=== PATIENT | male | born 1965 | race Caucasian/White ===

== ENCOUNTER 2023-05-05 12:04 | Outpatient (OUT) | payer OTHER, SELFPAY ==
[2023-05-05 12:34] LABS: Basophils Absolute Auto 0.1 10^3/uL (0.0-0.1); Basophils Percent Auto 0.8 % (0.2-2.0); Eosinophils Absolute Auto 0.1 10^3/uL (0.0-0.7); Hematocrit 40.5 % (42.0-54.0); Hemoglobin 12.7 g/dL (14.0-18.0); Immature Granulocytes Abs Auto 0.03 10^3/uL (0.00-0.03); Immature Granulocytes Pct Auto 0.3 % (0.0-0.5); Lymphocytes Absolute Auto 1.6 10^3/uL (1.2-3.8); Mean Corpuscular HGB Conc 31.4 g/dL (29.9-35.2); Mean Corpuscular Hemoglobin 31.8 pg (25.9-34.0); Mean Corpuscular Volume 101.5 fL (80.0-94.0); Monocytes Absolute Auto 1.1 10^3/uL (0.3-0.8); Monocytes Percent Auto 11.3 % (1.7-12.0); Neutrophils Percent Auto 70.6 % (43.0-75.0); Platelet Count 253 10^3/uL (150-450); Red Blood Count 3.99 10^6/uL (4.70-6.10); Red Cell Distribution Width 12.3 % (11.0-15.0); White Blood Count 9.9 10^3/uL (4.0-11.0)
[2023-05-05 12:52] LABS: Estimated Average Glucose 120 mg/dL; Glycohemoglobin A1C 5.8 % (4.5-6.2)
[2023-05-05 13:04] LABS: Alanine Aminotransferase 17 U/L (16-63); Albumin Globulin Ratio 0.9; Albumin Level 3.3 g/dL (3.4-5.0); Alkaline Phosphatase 59 U/L (46-116); Anion Gap 9.4; Aspartate Amino Transferase 6 U/L (15-37); BUN Creatinine Ratio 16.5; Bilirubin Total 0.3 mg/dL (0.2-1.0); Calcium 8.4 mg/dL (8.5-10.1); Carbon Dioxide 26.1 mmol/L (21.0-32.0); Chloride 104 mmol/L (98-107); Cholesterol 114 mg/dL (<=200); Estimated GFR (African America >60 (>=60); Estimated GFR (Non-African Ame >60 (>=60); Free T3 2.41 pg/mL (2.18-3.98); Globulin 3.8 g/dL; Glucose 107 mg/dL (74-106); HDL Cholesterol 38 mg/dL (40-60); Potassium 4.5 mmol/L (3.5-5.1); Sodium 135 mmol/L (136-145); Thyroid Stimulating Hormone 4.968 uIU/mL (0.358-3.740); Total Protein 7.1 g/dL (6.4-8.2); Triglycerides 56 mg/dL (<=150); Uric Acid 4.4 mg/dL (3.5-7.2); VLDL CHOLESTEROL 11.2 mg/dL
[2023-05-05 13:07] LABS: Prostate Specific Antigen Scrn 0.59 ng/mL (<=4.00)
== END 2023-05-05 12:05 | disposition home or self-care (01) ==
PROVIDERS: PCP Family Medicine; Visit Provider Family Medicine
DX: Z00.00 Encounter for general adult medical examination without abnormal findings (principal); E78.5 Hyperlipidemia, unspecified; R73.09 Other abnormal glucose; Z12.5 Encounter for screening for malignant neoplasm of prostate
CPT/HCPCS: 36415; 80053; 80061; 83036; 84436; 84443; 84481; 84550; 85025; G0103

== ENCOUNTER 2023-05-21 15:11 | Outpatient (RCR) | payer OTHER, SELFPAY ==
[2023-05-22 12:10] LABS: Occult Blood Positive
== END 2023-05-25 17:52 | disposition home or self-care (01) ==
LOC: LAB 15:11
PROVIDERS: PCP Family Medicine; Visit Provider Family Medicine
DX: Z12.12 Encounter for screening for malignant neoplasm of rectum (principal)
CPT/HCPCS: G0328

== ENCOUNTER 2024-03-23 09:04 | Emergency (ER) | payer OTHER, SELFPAY ==
[2024-03-23] VITALS (59 sets, daily range): BP systolic 139–200; BP diastolic 92–142; PULSE 78–139; TEMP 36.9; O2SAT 87–99; BMI 37.3
--- NOTE | 2024-03-23 09:20 | ECG_ITS ---
The [facility] Test Date: 2024-03-23 Pat Name: ESTEBAN HEATH Department: Room: - Gender: Male Candy Packer: : 1965 Requested By: GENET NOLAN Order Number: [id number] Reading MD: GENET NOLAN Measurements Intervals [place] Rate: 97 P: -39850 SD: -23855 QRS: 72 QRSD: 82 T: 270 QT: 296 QTc: 351 Interpretive Statements 1210 Atrial fibrillation 23079 Nonspecific Twave abnormality, probably digitalis effect 8102 Low QRS voltage in chest leads 8305 Short QTc interval 9150 abnormal ECG Compared to ECG 01/08/2022 21:01:46 Low QRS voltage now present Myocardial infarct finding no longer present Electronically Signed On 03-24-2024 7:28:52 EDT by GENET NOLAN
--- NOTE | 2024-03-23 09:20 | XR_ITS ---
The [address] [address] Patient Name: ESTEBAN HEATH MRN: [id number] date: 1965 Sex: M Assigned Patient Location: ER Current Patient Location: ER Accession/Order Number: [id number] Exam Date: 03/23/2024 10:05 Report Date: 03/23/2024 10:16 At the request of: NATIVIDAD JEFFERSON Procedure: XR chest 1V EXAMINATION: XR chest 1V HISTORY: sob COMPARISON: 01/08/2022 TECHNIQUE: AP portable FINDINGS: LUNGS: No significant pulmonary parenchymal abnormalities. VASCULATURE: No increased pulmonary vasculature. PLEURA: No pneumothorax, effusion, or pleural thickening. CARDIAC: No cardiomegaly or cardiac silhouette abnormality. MEDIASTINUM: No visible mass or adenopathy. BONES: No fracture or visible bone lesion. OTHER: Negative. XR/XR chest 1V IMPRESSION: No acute cardiopulmonary process Electronically authenticated by: SHONDA VENTURA Date: 03/23/2024 10:16
--- NOTE | 2024-03-23 09:35 | ED_ITS ---
HPI - Chest Pain General Chief Complaint: Chest Pain Stated Complaint: CHEST PAIN/ SHORTNESS OF BREATH Time Seen by Provider: 03/23/24 09:19 Source: patient Mode of arrival: walk-in Limitations: no limitations History of Present Illness HPI narrative: The patient is coming to us with 3 days history of left-sided chest pain that initially started around his shoulder but today the pain is mostly towards the epigastric area, the patient mentioned that the pain is 6 out of 10 but it goes up to 10 out of 10 sometimes , if not related to breathing or moving and there is no specific thing that will bring the pain The patient denies any numbness or tingling down his legs but he does have some numbness and tingling in his left arm which is a chronic problem, also mentioned that he always have sometimes dislocation of his left shoulder where he sleep on it , but this not the case today Patient also was complaining of shortness of breath and he mentioned that he feels that he is in A-fib and he usually does not feel that his heart racing. No history of coronary artery disease and no history of stent or cardiac issues Related Data Home Medications ?Medication ?Instructions ?Recorded ?Confirmed carvedilol 25 mg tablet 25 mg PO Q12H 03/23/24 03/23/24 citalopram 40 mg tablet 40 mg PO DAILY 03/23/24 03/23/24 digoxin 125 mcg (0.125 mg) tablet 0.125 mg PO DAILY 03/23/24 03/23/24 fenofibrate nanocrystallized 145 145 mg PO DAILY 03/23/24 03/23/24 mg tablet lisinopril 10 mg tablet 10 mg PO DAILY 03/23/24 03/23/24 potassium chloride 10 mEq 10 meq PO Q12H 03/23/24 03/23/24 tablet,extended release rivaroxaban 20 mg tablet (Xarelto) 20 mg PO Q24H 03/23/24 03/23/24 tadalafil 20 mg tablet (Cialis) 20 mg PO DAILY PRN sexual activity 03/23/24 03/23/24 Allergies Allergy/AdvReac Type Severity Reaction Status Date / Time ibuprofen Allergy Severe Hives Verified 03/23/24 09:16 Review of Systems ROS Status of ROS 10 or more systems reviewed and unremark able except as noted in history and below Exam Narrative Exam Narrative: Nurses notes and vital signs reviewed and patient is not hypoxic. General: Well-appearing and in no apparent distress. Skin: Warm, dry, no pallor noted. No rash. Head: Normocephalic, atraumatic. Neck: Supple, non-tender. Eye: Pupils are equal, round and EOMI. No scleral icterus. Ears, Nose, Mouth, and Throat: TM are clear, no nasal mucosal hypertrophy. Oral mucosa is moist, no posterior oropharynx erythema, uvula is mid-line Cardiovascular: Regular Rate and Rhythm without murmur, gallop or rub. Respiratory: No accessory muscle use or respiratory distress. Lungs are clear to auscultation, no wheezing, rales or rhonchi Chest Wall: no tenderness Back: No midline thoracic or lumbar vertebral tenderness. No CVA tenderness Musculoskeletal: normal ROM, no calf or popliteal tenderness, no lower extremity edema/swelling GI: Abdomen is distended and the patient have mid abdomen epigastric area tenderness Neurological: A&O x4. No cranial nerve dysfunction observed. No truncal ataxia. Moves all extremities. Sensation intact. Psychiatric: Cooperative and interactive. Normal mood and affect. Constitutional Vital Signs, click to edit/add: Last Vital Signs Temp 98.5 F 03/23/24 09:17 Pulse 102 H 03/23/24 11:11 Resp 18 03/23/24 11:11 BP 160/100 H 03/23/24 11:11 Pulse Ox 96 03/23/24 11:11 O2 Del Method Room Air 03/23/24 09:33 Course Vital Signs Vital signs: Vital Signs Temperature 98.5 F 03/23/24 09:17 Pulse Rate 119 H 03/23/24 09:17 Respiratory Rate 18 03/23/24 09:17 Blood Pressure 174/102 H 03/23/24 09:17 Pulse Oximetry 97 03/23/24 09:17 Oxygen Delivery Method Room Air 03/23/24 09:17 Temperature 98.5 F 03/23/24 09:17 Pulse Rate 102 H 03/23/24 11:11 Respiratory Rate 18 03/23/24 11:11 Blood Pressure 160/100 H 03/23/24 11:11 Pulse Oximetry 96 03/23/24 11:11 Oxygen Delivery Method Room Air 03/23/24 09:33 MDM - Chest Pain MDM Narrative Medical decision making narrative: The patient EKG showing A-fib with a heart rate of 97 although on the monitor the patient go up to 130s no ST elevation The patient was not taking his beta-barbara as well as digoxin for the last 3 days, and it was noted that the patient last time he used his Cialis was 3 days ago as well CBC shows mild leukocytosis and the patient chemistry showed no acute significant pathology with a negative troponin twice The patient magnesium was 1.7 he was started on IV magnesium The patient is coming to us with a blood pressure that is above 180/110 with chest pain and abdominal pain there was a high concern for aortic dissection and that I obtained a CT angio of the chest as well as the abdomen There was no dissection but the patient had acute cholecystitis changes Blood cultures obtained as well as the patient started on Zosyn Patient will be kept n.p.o. his last meal was at 2 AM this morning It was noted on the monitor that the patient had multiple 4-5 beats of ventricular rhythm that shows on the monitor of nonsustained V. tach I did discuss that with Dr. Ortega and cardiology service and he just recommended the patient continue his beta-barbara and follow-up with cardiology as outpatient The patient according to Dr. Ortega can go to surgery with moderate risk The patient case was discussed with Dr. Esparza in general surgery and he recommended the patient being transferred to another facility where there is cardiology service as well The patient case was accepted by Dr. Wheat and general surgery at [facility] as well a bernice Lugo as a hospitalist General: Lab Data Labs: Lab Results 03/23/24 03/23/24 Range/Units 09:26 10:52 WBC 12.1 H (4.0-11.0) 10^3/uL RBC 4.67 L (4.70-6.10) 10^6/uL Hgb 15.2 (14.0-18.0) g/dL Hct 46.5 (42.0-54.0) % MCV 99.6 H (80.0-94.0) fL MCH 32.5 (25.9-34.0) pg MCHC 32.7 (29.9-35.2) g/dL RDW 13.2 (11.0-15.0) % Plt Count 278 (150-450) 10^3/uL MPV 10.1 (9.5-13.5) fL Neut % (Auto) 78.2 H (43.0-75.0) % Lymph % (Auto) 10.2 L (20.5-60.0) % Person % (Auto) 9.8 (1.7-12.0) % Eos % (Auto) 0.7 L (0.9-7.0) % Baso % (Auto) 0.8 (0.2-2.0) % Neut # (Auto) 9.5 H (1.4-6.5) 10^3/uL Lymph # (Auto) 1.2 (1.2-3.8) 10^3/uL Person # (Auto) 1.2 H (0.3-0.8) 10^3/uL Eos # (Auto) 0.1 (0.0-0.7) 10^3/uL Baso # (Auto) 0.1 (0.0-0.1) 10^3/uL Abs Immat Gran (auto) 0.04 H (0.00-0.03) 10^3/uL Imm/Tot Granulo (auto) 0.3 (0.0-0.5) % PT 12.1 H (9.0-11.6) sec INR 1.16 Sodium 138 (136-145) mmol/L Potassium 4.3 (3.5-5.1) mmol/L Chloride 102 (98-107) mmol/L Carbon Dioxide 27.0 (21.0-32.0) mmol/L Anion Gap 13.3 BUN 17.0 (7.0-18.0) mg/dL Creatinine 1.15 (0.70-1.30) mg/dL Est GFR ( Amer) >60 (>=60) Est GFR (Non-Af Amer) >60 (>=60) BUN/Creatinine Ratio 14.8 Glucose 127 H (74-106) mg/dL Lactate 1.4 (0.4-2.0) mmol/L Calcium 9.3 (8.5-10.1) mg/dL Magnesium 1.7 L (1.8-2.4) mg/dL Total Bilirubin 0.7 (0.2-1.0) mg/dL AST 22 (15-37) U/L ALT 22 (16-63) U/L Alkaline Phosphatase 89 (46-116) U/L Troponin I High Sens 5.3 4.8 (4.0-76.1) pg/mL Total Protein 8.3 H (6.4-8.2) g/dL Albumin 4.1 (3.4-5.0) g/dL Globulin 4.2 g/dL Albumin/Globulin Ratio 1.0 Digoxin <0.2 L (0.9-2.0) ng/mL Discharge Plan Discharge Chief Complaint: Chest Pain Clinical Impression: Acute cholecystitis, Chest pain, Left shoulder pain, Hypomagnesemia, Hypertensive urgency, Frequent PVCs Patient Disposition: [facility] Time of Disposition Decision: 11:47 Discharge location: [facility] Condition: Good
[2024-03-23 09:39] LABS: Basophils Absolute Auto 0.1 10^3/uL (0.0-0.1); Basophils Percent Auto 0.8 % (0.2-2.0); Eosinophils Absolute Auto 0.1 10^3/uL (0.0-0.7); Eosinophils Percent Auto 0.7 % (0.9-7.0); Hematocrit 46.5 % (42.0-54.0); Hemoglobin 15.2 g/dL (14.0-18.0); Immature Granulocytes Abs Auto 0.04 10^3/uL (0.00-0.03); Immature Granulocytes Pct Auto 0.3 % (0.0-0.5); Lymphocytes Absolute Auto 1.2 10^3/uL (1.2-3.8); Lymphocytes Percent Auto 10.2 % (20.5-60.0); Mean Corpuscular HGB Conc 32.7 g/dL (29.9-35.2); Mean Corpuscular Hemoglobin 32.5 pg (25.9-34.0); Mean Corpuscular Volume 99.6 fL (80.0-94.0); Mean Platelet Volume 10.1 fL (9.5-13.5); Monocytes Absolute Auto 1.2 10^3/uL (0.3-0.8); Monocytes Percent Auto 9.8 % (1.7-12.0); Neutrophils Absolute Auto 9.5 10^3/uL (1.4-6.5); Neutrophils Percent Auto 78.2 % (43.0-75.0); Platelet Count 278 10^3/uL (150-450); Red Blood Count 4.67 10^6/uL (4.70-6.10); Red Cell Distribution Width 13.2 % (11.0-15.0); White Blood Count 12.1 10^3/uL (4.0-11.0)
[2024-03-23] MEDS: ONDANSETRON PF 4 MG/2 ML VIAL IV (09:46)
[2024-03-23] MEDS: METOPROLOL TARTRATE 5 MG/5 ML VIAL IVP (09:47)
[2024-03-23] MEDS: MORPHINE SULFATE 2 MG/ML SYRINGE IV (09:47)
[2024-03-23 09:53] LABS: INR 1.16; Prothrombin Time 12.1 sec (9.0-11.6)
[2024-03-23 10:00] LABS: Alanine Aminotransferase 22 U/L (16-63); Albumin Level 4.1 g/dL (3.4-5.0); Alkaline Phosphatase 89 U/L (46-116); Anion Gap 13.3; Aspartate Amino Transferase 22 U/L (15-37); BUN Creatinine Ratio 14.8; Bilirubin Total 0.7 mg/dL (0.2-1.0); Calcium 9.3 mg/dL (8.5-10.1); Chloride 102 mmol/L (98-107); Estimated GFR (African America >60 (>=60); Estimated GFR (Non-African Ame >60 (>=60); Globulin 4.2 g/dL; Glucose 127 mg/dL (74-106); Magnesium 1.7 mg/dL (1.8-2.4); Potassium 4.3 mmol/L (3.5-5.1); Sodium 138 mmol/L (136-145); Total Protein 8.3 g/dL (6.4-8.2); Troponin I High Sensitivity 5.3 pg/mL (4.0-76.1)
--- NOTE | 2024-03-23 10:07 | CT_ITS ---
[address] [address] Patient Name: ESTEBAN HEATH MRN: [id number] date: 1965 Sex: M Assigned Patient Location: ER Current Patient Location: Accession/Order Number: [id number] Exam Date: 03/23/2024 10:32 Report Date: 03/23/2024 11:07 At the request of: NATIVIDAD JEFFERSON Procedure: CT angio chest EXAMINATION: CT angio chest, CT angio abdomen pelvis HISTORY: abd pain with chest pain ( dissection ) COMPARISON: No relevant comparison available. TECHNIQUE: After obtaining the patient's consent, CT images of the chest, abdomen and pelvis were obtained without and with non-ionic intravenous contrast material. Axial, Coronal, and Sagittal images. Multi-planar reformatted/3-D images were created to optimize visualization of vascular anatomy. Dose reduction techniques were achieved by using automated exposure control and/or adjustment of mA and/or kV according to patient size and/or use of iterative reconstruction technique. FINDINGS: VASCULATURE: No pulmonary embolism or abnormal opacity. LUNGS: No visible pulmonary disease. PLEURA: No mass, effusion, or pneumothorax. BORIS: No mass or adenopathy. MEDIASTINUM: No mass or adenopathy. CARDIAC: No enlargement or pericardial effusion Coronary arteries: Heavy calcifications CHEST WALL: No mass or axillary adenopathy. AORTA/VASCULAR: No aneurysm or dissection. CELIAC ARTERY: Normal celiac vessels. SMA: Normal mesenteric vessels. RENAL ARTERIES: Single right. 2 left. No flow significant stenosis KAREN: No flow significant stenosis Iliacs: Mild to moderate atherosclerosis. No flow significant stenosis occlusion or aneurysm LIVER: No enlargement, atrophy, abnormal density, or significant focal lesion. BILIARY: Cholelithiasis. Suspected gallbladder wall thickening with pericholecystic inflammatory changes PANCREAS: No lesion, fluid collection, ductal dilatation, or atrophy. SPLEEN: No enlargement or focal lesion. ADRENALS: No mass or enlargement. KIDNEYS: No mass, obstruction, or calcification. Right cortical hypodensity likely a cyst BOWEL/MESENTERY: No visible mass, obstruction, or bowel wall thickening. Normal appendix RETROPERITONEUM: No mass or adenopathy. ABDOMINAL WALL: No mass or hernia. BONES: No bony lesion or fracture. L4-L5 spinous process fusion. Moderate to severe diffuse degenerative spondylosis and facet osteoarthropathy OTHER: Right lateral bladder diverticulum. Prostate calcifications. CT/CT angio chest IMPRESSION: No aortic aneurysm or dissection Inflammatory changes suggesting acute cholecystitis with underlying cholelithiasis Electronically authenticated by: SHONDA VENTURA Date: 03/23/2024 11:07
--- NOTE | 2024-03-23 10:07 | CT_ITS ---
[address] [address] Patient Name: ESTEBAN HEATH MRN: [id number] date: 1965 Sex: M Assigned Patient Location: ER Current Patient Location: Accession/Order Number: [id number] Exam Date: 03/23/2024 10:32 Report Date: 03/23/2024 11:07 At the request of: NATIVIDAD JEFFERSON Procedure: CT angio abdomen pelvis EXAMINATION: CT angio chest, CT angio abdomen pelvis HISTORY: abd pain with chest pain ( dissection ) COMPARISON: No relevant comparison available. TECHNIQUE: After obtaining the patient's consent, CT images of the chest, abdomen and pelvis were obtained without and with non-ionic intravenous contrast material. Axial, Coronal, and Sagittal images. Multi-planar reformatted/3-D images were created to optimize visualization of vascular anatomy. Dose reduction techniques were achieved by using automated exposure control and/or adjustment of mA and/or kV according to patient size and/or use of iterative reconstruction technique. FINDINGS: VASCULATURE: No pulmonary embolism or abnormal opacity. LUNGS: No visible pulmonary disease. PLEURA: No mass, effusion, or pneumothorax. BORIS: No mass or adenopathy. MEDIASTINUM: No mass or adenopathy. CARDIAC: No enlargement or pericardial effusion Coronary arteries: Heavy calcifications CHEST WALL: No mass or axillary adenopathy. AORTA/VASCULAR: No aneurysm or dissection. CELIAC ARTERY: Normal celiac vessels. SMA: Normal mesenteric vessels. RENAL ARTERIES: Single right. 2 left. No flow significant stenosis KAREN: No flow significant stenosis Iliacs: Mild to moderate atherosclerosis. No flow significant stenosis occlusion or aneurysm LIVER: No enlargement, atrophy, abnormal density, or significant focal lesion. BILIARY: Cholelithiasis. Suspected gallbladder wall thickening with pericholecystic inflammatory changes PANCREAS: No lesion, fluid collection, ductal dilatation, or atrophy. SPLEEN: No enlargement or focal lesion. ADRENALS: No mass or enlargement. KIDNEYS: No mass, obstruction, or calcification. Right cortical hypodensity likely a cyst BOWEL/MESENTERY: No visible mass, obstruction, or bowel wall thickening. Normal appendix RETROPERITONEUM: No mass or adenopathy. ABDOMINAL WALL: No mass or hernia. BONES: No bony lesion or fracture. L4-L5 spinous process fusion. Moderate to severe diffuse degenerative spondylosis and facet osteoarthropathy OTHER: Right lateral bladder diverticulum. Prostate calcifications. CT/CT angio abdomen pelvis IMPRESSION: No aortic aneurysm or dissection Inflammatory changes suggesting acute cholecystitis with underlying cholelithiasis Electronically authenticated by: SHONDA VENTURA Date: 03/23/2024 11:07
[2024-03-23 10:35] LABS: Digoxin <0.2 ng/mL (0.9-2.0)
[2024-03-23] MEDS: FAMOTIDINE/PF 20 MG/2 ML VIAL IV (10:54)
[2024-03-23 11:14] LABS: Troponin I High Sensitivity 4.8 pg/mL (4.0-76.1)
[2024-03-23 11:39] LABS: Lactate/Lactic Acid 1.4 mmol/L (0.4-2.0)
[2024-03-23] MEDS: PIPERACILLIN SODIUM/TAZOBACTAM 4.5 GM in 0.9 % SODIUM CHLORIDE 50 ML IV (11:54)
[2024-03-23] MEDS: MAGNESIUM SULFATE/D5W 1 GM/100 ML PREMIX IV (11:54)
[2024-03-23] MEDS: HYDROMORPHONE HCL 0.5 MG/0.5 ML SYRINGE IV (13:41)
[2024-03-23] MEDS: LABETALOL HCL 20 MG/4 ML SYRINGE 10 MG IVP (14:17)
[2024-03-23] MEDS: HYDRALAZINE HCL 20 MG/ML VIAL 10 MG IVP (16:11)
[2024-03-23] MEDS: KETOROLAC TROMETHAMINE 30 MG/ML VIAL 15 MG IVP (17:50)
[2024-03-23] MEDS: 0.9 % SODIUM CHLORIDE 1,000 ML 150 ML IV (17:56)
== END 2024-03-23 18:05 | disposition short-term general hospital (02) ==
PROVIDERS: Emergency Provider Emergency Medicine; PCP Family Medicine
DX: K81.0 Acute cholecystitis (principal); I48.91 Unspecified atrial fibrillation; R07.9 Chest pain, unspecified; R06.02 Shortness of breath; R51.9 Headache, unspecified; R10.9 Unspecified abdominal pain; M25.512 Pain in left shoulder; E83.42 Hypomagnesemia; I16.0 Hypertensive urgency; I10 Essential (primary) hypertension; I49.3 Ventricular premature depolarization
CPT/HCPCS: 36415; 71045; 71275; 74174; 80053; 80162; 83605; 83735; 84484; 85025; 85610; 87040; 93005; 96365; 96368; 96375; 99285; J0360; J1170; J1885; J1920; J2270; J2405; J2543; J3475; Q9967

== ENCOUNTER 2024-04-17 07:00 | Outpatient (OUT) | payer OTHER, SELFPAY ==
--- OUTSIDE RECORDS SUMMARY | 2024-04-14 17:24 | XMS_ITS | CCD ---
Author Organization [facility] Care Team Providers Care Oil Heat Technician Name Role Phone BRADEN, DR DE LEÓN Primary Care Unavailable KUMAR, DR KATHERINE Cole Admitting Unavailable KUMAR, DR KATHERINE Cole Consulting Unavailable KUMAR, DR KATHERINE Cole Attending Unavailable LETY BUENO Consulting Unavailable ELBERT ROSALES Consulting Unavailable SHONDA RAY Consulting Unavailable BRADEN, DR DE LEÓN Primary Care Unavailable BRADEN, DR DE LEÓN Attending Unavailable BRADEN, DR DE LEÓN Admitting Unavailable GENET FELICIANO Referring Unavailable GENET FELICIANO Primary Care Unavailable DIAB, ALEXANDRE Referring Unavailable MAIA, HANI Admitting Unavailable ENGLAND, TONY JUVEL Attending Unavailable ABA MCCURDY Attending Unavailable ZHUKIVSMARQUITA ANDERSONCHUNG M Referring Unavailabl e ENGLAND, TONY JUVEL Referring Unavailable ZHUKIVSCIATLIN ANDERSONLANFabi Silva Referring Unavailabl e MAIA, HANI Referring Unavailable VELY, AELA Referring Unavailable VELY, AELA Attending Unavailable Allergies Allergy Classification Reported Allergen(s) Allergy Type Date of Onset Reaction(s) Facility (3 sources) Ibuprofen; Translations: [IBUPROFEN] Drug Allergy 01-08-2022 [facility] Repository (2 sources) moxifloxacin Drug Allergy 09-02-2013 [facility] Repository (2 sources) Alcohol Drug allergy (disorder) 01-08-2022 [facility] Repository Problems Problem Classification Problem Date Documented Da te Episodic/Chronic Abdominal hernia (1 source) Ventral hernia without obstruction or gangrene; Translations: [VENTRAL HERNIA W/O OBST/GANGRENE] Onset: 01-12-2022 Episodic Biliary tract disease (2 sources) Acute cholecystitis; Translations: [Acute cholecystitis] Onset: 03-23-2024 Episodic Cardiac dysrhythmias (3 sources) Unspecified atrial fibrillation; Translations: [UNSPECIFIED ATRIAL FIBRILLATION] Onset: 01-12-2022 Chronic Chronic obstructive pulmonary disease and bronchiectasis (1 source) Bronchitis, not specified as acute or chronic; Translations: [BRONCHITIS NOT SPEC ACUTE/CHRON] Onset: 01-12-2022 Episodic E Codes: Fall (1 source) Unspecified fall, initial encounter; Translations: [UNSPECIFIED FALL INITIAL ENCOUNTER] Onset: 01-12-2022 Episodic Essential hypertension (1 source) Essential (primary) hypertension; Translations: [ESSENTIAL PRIMARY HYPERTENSION] Onset: 01-12-2022 Chronic Other aftercare (1 source) Other manager long term care (current) drug therapy; Translations: [OTH DIRECTOR OF TRAUMA CURRENT DRUG THERAPY] Onset: 01-12-2022 Episodic Other aftercare (1 source) longterm (current) use of aspirin; Translations: [MCFP CURRENT USE OF ASPIRIN] Onset: 01-12-2022 Episodic Other aftercare (1 source) manager terminal (current) use of anticoagulants; Translations: [MCFP CURRNT USE ANTICOAGULANTS] Onset: 01-12-2022 Episodic Other lower respiratory disease (1 source) Hypoxemia; Translations: [HYPOXEMIA] Onset: 01-12-2022 Episodic Other nutritional; endocrine; and metabolic disorders (2 sources) Hypomagnesemia; Translations: [Hypomagnesemia] Onset: 03-23-2024 Chronic Residual codes; unclassified (1 source) Acquired absence of other genital organ(s); Translations: [ACQUIRED ABSENCE OTH GENITAL ORGANS] Onset: 01-12-2022 Episodic Residual codes; unclassified (1 source) High risk heterosexual behavior; Translations: [High risk heterosexual behavior] Onset: 09-25-2023 Episodic Superficial injury; contusion (4 sources) Contusion of unspecified back wall of thorax, initial encounter; Translations: [CONTUS UNS BACK WALL THORAX INITIAL] Onset: 01-08-2022 Episodic Unclassified (2 sources) Post-op; Translations: [Post-op] Onset: 04-10-2024 Results Test Name Value Interpretation Reference Range Facility 36on 04-11-2024 36 Patient came into office for visit Normal [facility] Office Visiton 04-10-2024 Follow-up visit [id number] Dieudonne Sahu ph 1965 M Date Provider Department Center 04/10/2024 ABA LOPEZ [facility] SURG Second Fl No family history on file Level of Service:28182 [place] POSTOP FOLLOW UP VISIT RELATED TO ORIGINAL PX Reason for Visit and Comments: Post-op [483] Maximo Barrios is here today for post op visit: s/p 03/25/24 subtotal cholecystectomy and drain placement Patient states he took the bulb off due to it being caught on things He has not had any drainage in over a week Normal [facility] 36on 04-04-2024 36 Translator Interpreter called yanique hodges twice to schedule 1 week follow there was no answer Lmom Translator Interpreter will give patient a call back Normal [facility] Office Visiton 04-03-2024 Follow-up visit [id number] Dieudonne Sahu ph 1965 M Date Provider Department Center 04/03/2024 76Oliverio-LUCA CHEN [facility] SURG Second Fl No family history on file Level of Service:15059 [place] POSTOP FOLLOW UP VISIT RELATED TO ORIGINAL PX Reason for Visit and Comments: Post-op [483] - Denis is her/e today for post op visit: S/p Lap Alma Delia with drain placement x2 03/25/24 Normal [facility] 30on 03-26-2024 30 The patient is Moderately Stable - Low risk of patient condition declining or worsening The patient's goals for the shift include comfort and rest The clinical goals for the shift include VSS Normal [facility] APTTon 03-26-2024 ACTIVATED PARTIAL THROMBOPLASTIN TIME IN PPP BY COAGULATION ASSAY 31.8 Seconds Normal 25.0-35.0 [facility] Comment on above: Order Comment: Basel ine aPTT before initiating heparin infusion. Result Comment: Clin ical significance of the APTT is questionable in the presence of heparin. Performed By: #### L [id number] ####[facility] ([employer])[address] [place] [address] CBCon 03-26-2024 Erythrocyte distribution width (RBC) [Ratio] 13.0 % Normal 11.5-15.0 [facility] Comment on above: Performed By: #### L [id number] #### [facility] (BEAKER) [address] [place] [address] ERYTHROCYTE MEAN CORPUSCULAR HEMOGLOBIN CONCENTRATION (G/DL) BY AUTOMATED 32.3 g/dL Normal 32.0-35.0 [facility] Comment on above: Performed By: #### L [id number] #### [facility] (BEAKER) [address] [place] [address] Hematocrit (Bld) [Volume fraction] 40.3 % Normal 39.0-55.0 [facility] Comment on above: Performed By: #### L [id number] #### [facility] (BEAKER) [address] [place] [address] Hemoglobin (Bld) [Mass/Vol] 13.0 g/dL Normal 13.0-17.0 [facility] Comment on above: Performed By: #### L [id number] #### [facility] [address] [place] [address] MCH (RBC) [Entitic mass] 32.5 pg Normal 27.0-33.0 [facility] Comment on above: Performed By: #### L [id number] #### [facility] [address] [place] [address] MCV (RBC) [Entitic vol] 100.8 fL High 82.0-98.0 [facility] Comment on above: Performed By: #### L [id number] #### [facility] (BEAKER) [address] [place] [address] PLATELETS (10*3/UL) IN BLOOD AUTOMATED COUNT 266 10*3/uL Normal 150-400 [facility] Comment on above: Performed By: #### L [id number] #### [facility] (BEAKER) [address] [place] [address] RBC (Bld) [#/Vol] 4.00 10*6/uL Low 4.20-5.70 [facility] Comment on above: Performed By: #### L [id number] #### [facility] (BEAKER) [address] [place] [address] WBC (Bld) [#/Vol] 19.89 10*3/uL High 4.00-10.60 [facility] Comment on above: Performed By: #### L [id number] #### [facility] (BEAKER) [address] [place] [address] COMPREHENSIVE METABOLIC PANE Sander 03-26-2024 Albumin [Mass/Vol] 3.8 g/dL Normal 3.5-5.7 [facility] Comment on above: Performed By: #### L [id number] ####[facility] (BEAKER)[address] [place] [address] ALP [Catalytic activity/Vol] 45 U/L Normal 34-104 [facility] Comment on above: Performed By: #### L [id number] ####[facility] (BEAKER)[address] [place] [address] ALT [Catalytic activity/Vol] 10 U/L Normal 7-52 [facility] Comment on above: Performed By: #### L [id number] ####[facility] (BEAKER)[address] [place] [address] Anion gap [Moles/Vol] 10 mmol/L Normal 7-20 [facility] Comment on above: Performed By: #### L [id number] ####[facility] (BEAKER)[address] [place] [address] AST [Catalytic activity/Vol] 15 U/L Normal 13-39 [facility] Comment on above: Performed By: #### L [id number] ####[facility] (BEAKER)[address] [place] [address] Bilirubin [Mass/Vol] 0.8 mg/dL Normal 0.3-1.0 [facility] Comment on above: Performed By: #### L [id number] ####[facility] (BEAKER)[address] [place] [address] Calcium [Mass/Vol] 8.9 mg/dL Normal 8.6-10.3 [facility] Comment on above: Performed By: #### L [id number] ####[facility] (BEAKER)[address] [place] [address] Chloride [Moles/Vol] 101 mmol/L Normal 98-107 [facility] Comment on above: Performed By: #### L [id number] ####[facility] (BEAKER)[address] [place] [address] CO2 [Moles/Vol] 28 mmol/L Normal 21-31 [facility] Comment on above: Performed By: #### L [id number] ####[facility] ([facility] [place] [address] Creatinine [Mass/Vol] 0.90 mg/dL Normal 0.70-1.30 [facility] Comment on above: Performed By: #### L [id number] ####[facility] ([facility] [place] [address] GLOMERULAR FILTRATION RATE ML/MIN/1.73 SQ M.PREDICTED 98.4 mL/min/1.73m*2 Normal >60.0 [facility] Comment on above: Result Comment: The [facility]???s estimated glomerular filtration rate (eGFR) will no longer include consideration of race in its calculation. The National Kidney Foundation???s eGFR Task Force developed new recommendations for the estimation of the glomerular filtration rate in the [place] They recommend immediate implementation of the new equation refit without the race variable in all laboratories because the calculation does not include race. In addition to not including race in the calculation and reporting, it included diversity in its development, and has acceptable performance characteristics and potential consequences that do not disproportionately affect any one group of individuals. Performed By: #### L [id number] ####[facility] (BEAKER)[address] [place] [address] Glucose [Mass/Vol] 159 mg/dL High 70-100 [facility] Comment on above: Performed By: #### L [id number] ####[facility] (BEAKER)[address] [place] [address] Potassium [Moles/Vol] 4.4 mmol/L Normal 3.5-5.1 [facility] Comment on above: Performed By: #### L [id number] ####[facility] ([facility])[address] [place] [address] Protein [Mass/Vol] 6.9 g/dL Normal 6.0-8.3 [facility] Comment on above: Performed By: #### L [id number] ####[facility] ([facility])[address] [place] [address] Sodium [Moles/Vol] 135 mmol/L Low 136-145 [facility] Comment on above: Performed By: #### L [id number] ####[facility] ([facility])[address] [place] [address] Urea nitrogen [Mass/Vol] 13 mg/dL Normal 7-25 [facility] Comment on above: Performed By: #### L [id number] ####[facility] ([facility])[address] [place] [address] UREA NITROGEN/CREATININE (MASS RATIO) IN SER/PLAS 14.4 Normal [facility] Comment on above: Performed By: #### L [id number] ####[facility] ([facility])[address] [place] [address] PLATELET COUNTon 03-26-2024 PLATELETS (10*3/UL) IN BLOOD AUTOMATED COUNT 298 10*3/uL Normal 150-400 [facility] Comment on above: Performed By: #### L [id number] #### [facility] ([facility]) [address] [place] [address] PROTIME-INRon 03-26-2024 INR IN PPP BY COAGULATION ASSAY 1.34 High 0.90-1.10 [facility] Comment on above: Result Comment: ACCC P RECOMMENDED INR FOR WARFARIN THERAPY CONDITION INR PROPHYLAXIS OF VENOUS THROMBOSIS 2-3 (HIGH-RISK SURGERY) TREATMENT OF VENOUS THROMBOSIS 2-3 TREATMENT OF PULMONARY EMBOLISM 2-3 PREVENTION OF SYSTEMIC EMBOLISM: 2-3 ACUTE MYOCARDIAL INFARCTION TISSUE HEART VALVES VALVULAR HEART DISEASE ATRIAL FIBRILLATION RECURRENT SYSTEMIC EMBOLISM MECHANICAL HEART VALVE 2.5-3.5 FROM: ORAL ANTICOAGULANTS. MECHANISM OF ACTION, CLINICAL EFFECTIVENESS, AND OPTIMAL THERAPEUTIC RANGE. CHEST 1995;108:231S-246S. Performed By: #### L [id number] ####[facility] [employer])[address] [place] [address] PROTHROMBIN TIME (PT) IN PPP BY COAGULATION ASSAY 16.5 Seconds High 12.3-14.8 [facility] Comment on above: Performed By: #### L [id number] ####[facility] [employer])[address] [place] [address] 30on 03-25-2024 30 The patient is Moderately Stable - Low risk of patient condition declining or worsening The patient's goals for the shift include comfort and rest The clinical goals for the shift include stable VS Over the shift, the patient did make progress toward his goals. Normal [facility] 30 The patient is Moderately Stable - Low risk of patient condition declining or worsening The patient's goals for the shift include comfort and rest The clinical goals for the shift include VSS Normal [facility] APTTon 03-25-2024 ACTIVATED PARTIAL THROMBOPLASTIN TIME IN PPP BY COAGULATION ASSAY 76.3 Seconds High 25.0-35.0 [facility] Comment on above: Result Comment: Clin ical significance of the APTT is questionable in the presence of heparin. Performed By: #### L [id number] #### [facility] [employer]) [address] [place] [address] CBCon 03-25-2024 Erythrocyte distribution width (RBC) [Ratio] 13.2 % Normal 11.5-15.0 [facility] Comment on above: Performed By: #### L [id number] #### [facility] ([facility]) [address] [place] [address] ERYTHROCYTE MEAN CORPUSCULAR HEMOGLOBIN CONCENTRATION (G/DL) BY AUTOMATED 32.0 g/dL Normal 32.0-35.0 [facility] Comment on above: Performed By: #### L [id number] #### [facility] ([facility]) [address] [place] [address] Hematocrit (Bld) [Volume fraction] 39.1 % Normal 39.0-55.0 [facility] Comment on above: Performed By: #### L [id number] #### [facility] ([facility]) [address] [place] [address] Hemoglobin (Bld) [Mass/Vol] 12.5 g/dL Low 13.0-17.0 [facility] Comment on above: Performed By: #### L [id number] #### [facility] ([facility]) [address] [place] [address] MCH (RBC) [Entitic mass] 32.3 pg Normal 27.0-33.0 [facility] Comment on above: Performed By: #### L [id number] #### [facility] ([facility]) [address] [place] [address] MCV (RBC) [Entitic vol] 101.0 fL High 82.0-98.0 [facility] Comment on above: Performed By: #### L [id number] #### [facility] ([facility]) [address] [place] [address] PLATELETS (10*3/UL) IN BLOOD AUTOMATED COUNT 235 10*3/uL Normal 150-400 [facility] Comment on above: Performed By: #### L [id number] #### [facility] ([facility]) [address] [place] [address] RBC (Bld) [#/Vol] 3.87 10*6/uL Low 4.20-5.70 [facility] Comment on above: Performed By: #### L [id number] #### [facility] (BEAKER) [address] [place] [address] WBC (Bld) [#/Vol] 14.90 10*3/uL High 4.00-10.60 [facility] Comment on above: Performed By: #### L [id number] #### [facility] (BEAKER) [address] [place] [address] COMPREHENSIVE METABOLIC PANE Sander 03-25-2024 Albumin [Mass/Vol] 3.6 g/dL Normal 3.5-5.7 [facility] Comment on above: Performed By: #### L [id number] ####[facility] ([facility] [place] [address] ALP [Catalytic activity/Vol] 45 U/L Normal 34-104 [facility] Comment on above: Performed By: #### L [id number] ####[facility] ([facility] [place] [address] ALT [Catalytic activity/Vol] 10 U/L Normal 7-52 [facility] Comment on above: Performed By: #### L [id number] ####[facility] ([facility])[address] [place] [address] Anion gap [Moles/Vol] 9 mmol/L Normal 7-20 [facility] Comment on above: Performed By: #### L [id number] ####[facility] ([facility])[address] [place] [address] AST [Catalytic activity/Vol] 15 U/L Normal 13-39 [facility] Comment on above: Performed By: #### L [id number] ####[facility] ([facility])[address] [place] [address] Bilirubin [Mass/Vol] 0.8 mg/dL Normal 0.3-1.0 [facility] Comment on above: Performed By: #### L [id number] ####[facility] (BEAKER)[address] [place] [address] Calcium [Mass/Vol] 8.5 mg/dL Low 8.6-10.3 [facility] Comment on above: Performed By: #### L [id number] ####[facility] ([facility])[address] [place] [address] Chloride [Moles/Vol] 103 mmol/L Normal 98-107 [facility] Comment on above: Performed By: #### L [id number] ####[facility] ([facility])[address] [place] [address] CO2 [Moles/Vol] 28 mmol/L Normal 21-31 [facility] Comment on above: Performed By: #### L [id number] ####[facility] ([facility])[address] [place] [address] Creatinine [Mass/Vol] 0.92 mg/dL Normal 0.70-1.30 [facility] Comment on above: Performed By: #### L [id number] ####[facility] ([facility])[address] [place] [address] GLOMERULAR FILTRATION RATE ML/MIN/1.73 SQ M.PREDICTED 95.8 mL/min/1.73m*2 Normal >60.0 [facility] Comment on above: Result Comment: The [facility]???s estimated glomerular filtration rate (eGFR) will no longer include consideration of race in its calculation. The National Kidney Foundation???s eGFR Task Force developed new recommendations for the estimation of the glomerular filtration rate in the [place] They recommend immediate implementation of the new equation refit without the race variable in all laboratories because the calculation does not include race. In addition to not including race in the calculation and reporting, it included diversity in its development, and has acceptable performance characteristics and potential consequences that do not disproportionately affect any one group of individuals. Performed By: #### L [id number] ####[facility] ([facility])[address] [place] [address] Glucose [Mass/Vol] 120 mg/dL High 70-100 [facility] Comment on above: Performed By: #### L [id number] ####[facility] ([facility])[address] [place] [address] Potassium [Moles/Vol] 4.1 mmol/L Normal 3.5-5.1 [facility] Comment on above: Performed By: #### L [id number] ####[facility] ([facility])[address] [place] [address] Protein [Mass/Vol] 6.6 g/dL Normal 6.0-8.3 [facility] Comment on above: Performed By: #### L [id number] ####[facility] [place] [address] Sodium [Moles/Vol] 136 mmol/L Normal 136-145 [facility] Comment on above: Performed By: #### L [id number] ####[facility] ([facility] [place] [address] Urea nitrogen [Mass/Vol] 13 mg/dL Normal 7-25 [facility] Comment on above: Performed By: #### L [id number] ####[facility] ([facility] [place] [address] UREA NITROGEN/CREATININE (MASS RATIO) IN SER/PLAS 14.1 Normal [facility] Comment on above: Performed By: #### L [id number] ####[facility] ([facility] [place] [address] HISTOLOGY - TISSUE EXAMon LAB AP CASE REPORT Normal [facility] Comment on above: Order Comment: Pre-o p diagnosis:Acute cholecystitis [K81.0] Result Comment: Surg ical Pathology Case: [id number] Authorizing Provider: Luca Chen MD Collected: 03/25/2024 1056 Ordering Location: [facility] Main Operating Room Received: 03/28/2024 0924 Pathologist: Lurdes Harvey MD Specimen: Gallbladder, GALLBLADDER Performed By: #### L [id number] ####[facility] ([facility] [place] [address] LAB AP CLINICAL INFORMATION Normal [facility] Comment on above: Order Comment: Pre-o p diagnosis:Acute cholecystitis [K81.0] Result Comment: Post -Op Diagnoses K81.0 - Acute cholecystitis [ICD-10-CM] Performed By: #### L [id number] ####[facility] ([facility])[address] [place] [address] LAB AP GROSS DESCRIPTION A. Gallbladder. [facility] Comment on above: Order Comment: Pre-o p diagnosis:Acute cholecystitis [K81.0] Result Comment: Rece ived in formalin and labeled Sahu Denis, gallbladder , are two portions of purple-marie, sheet-like portions of soft tissue, measuring 4 x 2.5 x 1.5 cm and 4 x 2 x 0.5 cm. There is scant attached yellow, lobulated soft tissue, consistent with fat. The cut surface of the soft tissue is purple-patton, smooth and up to 0.4 cm in thickness. Also in the container, is a 4.5 x 3 x 2 cm aggregate of gold yellow, friable and dough-like material. It Business Process Architect sections of soft tissue are submitted in 2 cassettes. Zenobia Davis M.D., PGY-1 Performed By: #### L [id number] ####[facility] ([facility])[address] [place] [address] LAB AP MICROSCOPIC DESCRIPTION Microscopic examination performed. [facility] Comment on above: Order Comment: Pre-o p diagnosis:Acute cholecystitis [K81.0] Performed By: #### L [id number] ####[facility] ([facility])[address] [place] [address] LAB AP REPORT FINAL DIAGNOSIS NARRATIVE [facility] Comment on above: Order Comment: Pre-o p diagnosis:Acute cholecystitis [K81.0] Result Comment: A. G allbladder, cholecystectomy: - Acute and chronic cholecystitis with serositis and transmural inflammation. - Cholelithiasis. Performed By: #### L [id number] ####[facility] ([facility] [place] [address] MAGNESIUMon 03-25-2024 Magnesium [Mass/Vol] 1.6 mg/dL Low 1.9-2.7 [facility] Comment on above: Performed By: #### L [id number] #### [facility] ([facility]) [address] [place] [address] NURSNOTEon 03-25-2024 NURSNOTE Translator Interpreter contacted by [facility]. Patient had 31 runs of vtach overnight between 4-8 beats each. Patient remains asymptomatic to each episode. Roberta Alonzo notified. Order placed for magnesium to be ordered with AM labs. Normal [facility] OPNOTEon 03-25-2024 OPNOTE CHOLECYSTECTOMY, LAPAROSCOPIC Operative Note Date: 03/23/2024 - 03/25/2024 Location: [facility] OR Name: Denis Sahu : 1965, Diagnosis Pre-op Diagnosis * Acute cholecystitis [K81.0] Post-op Diagnosis * Acute cholecystitis [K81.0] Procedures Laparoscopic subtotal cholecystectomy Surgeons Primary: Luca Chen MD Assisting: Luis Raymond MD Resident - Assisting: Oswald Ni MD I was present and scrubbed throughout the entire procedure. Please note that Luis Raymond MD assisted me with this complex procedure, due to there not being a resident of appropriate level available. Procedure Summary Anesthesia: General ASA: III Estimated Blood Loss: 30 mL Total IV Fluids: see anesthesia for documentation Drains: Closed/Suction Drain Anterior;Right RUQ Bulb 19 Fr. (Active) Closed/Suction Drain Anterior;Right RUQ Accordion 16 Fr. (Active) Urethral Catheter Non-latex 16 Fr. (Active) Specimens ID Source Type Tests Collected By Collected At Frozen? Priority Lab ID A Gallbladder Tissue HISTOLOGY - TISSUE EXAM Luca Chen MD 03/25/24 [id number] No Description: GALLBLADDER Staff: Slitter And Rewinder: Yuki Hobbs RN Scrub Person: Shalini Marroquin CST Indications: Denis Sahu is an 58 y.o. male who is having surgery for Acute cholecystitis [K81.0]. Procedure Details: The patient was seen in the preoperative area. The risks, benefits, complications, treatment options, non-operative alternatives, expected recovery and outcomes were discussed with the patient. The possibilities of reaction to medication, pulmonary aspiration, injury to surrounding structures, bleeding, recurrent infection, the need for additional procedures, failure to diagnose a condition, and creating a complication requiring transfusion or operation were discussed with the patient. The patient concurred with the proposed plan, giving informed consent. The site of surgery was properly noted/marked if necessary per policy. The patient has been actively warmed in preoperative area. Preoperative antibiotics have been ordered and given within 1 hours of incision. Venous thrombosis prophylaxis are not indicated. The patient was placed supine on the Operating Room table and endotracheal intubation was performed by anesthesia. The patient was prepped and draped in the usual sterile fashion so as to expose the anterior abdominal wall. A time out was obtained, confirming patient, procedure and laterality. A vertical infraumbilical incision was made. Using blunt dissection the subcutaneous tissue was dissected to the level of the fascia. The abdominal cavity was then entered under direct visualization. A 12 mm Rupal port was then introduced and the abdominal cavity was insuflated. A 5 mm port was placed in the subxiphoid region. Adhesions in the right upper quadrant were taken down using electrocautery. Moderate amount of bilious ascites noted in there right upper quadrant along with liver changes concerning for liver disease. Two 5 mm ports were placed along the sub costal margin in the right upper quadrant. The patient was placed in reverse Trendelenburg with slight tilt to the left. There was omentum adherent to the liver and gallbladder that was removed with electrocautery. The gallbladder felt very distended and 60 ml of thick bilious fluid was aspirated. The gallbladder was retracted cephalad and medially and an initial tear in the gallbladder wall was noted with bleeding controled with electrocautery. Using blunt dissection and coagulation, the peritoneum was dissected off the gallbladder safely up to the point where the structures adherent to the inferior wall of the gallbladder felt hard and could not be easily differentiated and identified. At that point additional tension caused the gallbladder to completely tear open and the surgery was converted to subtotal cholecystectomy for safety. Using ligasure, the superior and lateral portion of the gallbladder could safely be transected. Inspection of the cavity showed sludge, small stones and a very large stone, which were all removed and placed in an endocatch bag previously placed within the abdominal cavity. The gallbladder remnant was then irrigated and suctioned with no new particles coming up. Fluid, blood and bile were suctioned above the liver. The medial and posterior roth of the gallbladder were excoriated. The patient was flatened. A 19 Fr slim drain was placed within the gallbladder remnant and exited through the lateral port. Another 19Fr slim drain was placed above the liver and exited through the medial port. A thin piece of surgicel was placed within the gallbladder remnant for hemostasis. The endocatch bag was removed. All ports were removed under direct view. The infraumbilical port site fascia was closed with two interrupted 0 vicryl sutures. The subcutaneous tissues were washed out. All port site skin closed with 4-0 monocryl and daniella (more content not included)... Normal [facility] PROTIME-INRon 03-25-2024 INR IN PPP BY COAGULATION ASSAY 1.28 High 0.90-1.10 [facility] Comment on above: Result Comment: ACCC P RECOMMENDED INR FOR WARFARIN THERAPY CONDITION INR PROPHYLAXIS OF VENOUS THROMBOSIS 2-3 (HIGH-RISK SURGERY) TREATMENT OF VENOUS THROMBOSIS 2-3 TREATMENT OF PULMONARY EMBOLISM 2-3 PREVENTION OF SYSTEMIC EMBOLISM: 2-3 ACUTE MYOCARDIAL INFARCTION TISSUE HEART VALVES VALVULAR HEART DISEASE ATRIAL FIBRILLATION RECURRENT SYSTEMIC EMBOLISM MECHANICAL HEART VALVE 2.5-3.5 FROM: ORAL ANTICOAGULANTS. MECHANISM OF ACTION, CLINICAL EFFECTIVENESS, AND OPTIMAL THERAPEUTIC RANGE. CHEST 1995;108:231S-246S. Performed By: #### L [id number] #### [facility] [employer]) [address] [place] [address] PROTHROMBIN TIME (PT) IN PPP BY COAGULATION ASSAY 15.9 Seconds High 12.3-14.8 [facility] Comment on above: Performed By: #### L [id number] #### [facility] ([employer]) [address] [place] [address] TROPONIN Ion 03-25-2024 Troponin I.cardiac [Mass/Vol] 0.01 ng/mL Normal 0.00-0.04 [facility] Comment on above: Performed By: #### L [id number] #### [facility] ([facility] [address] [place] [address] Troponin I.cardiac [Mass/Vol] 0.03 ng/mL Normal 0.00-0.04 [facility] Comment on above: Performed By: #### L [id number] ####[facility] ([facility] [place] [address] 30on 03-24-2024 30 The patient is Moderately Stable - Low risk of patient condition declining or worsening The patient's goals for the shift include comfort and rest The clinical goals for the shift include stable VS Over the shift, the patient did make progress toward his goals. Normal [facility] 30 Daily Case Managemen t Update Multidisciplinary rounds have been completed. Barriers to Discharge: Pending clinical course and improvement in clinical condition. Plan for laparoscopic cholecystectomy tomorrow with General Surgery. Discharge plan is home when medically ready. Diet: Dietary Orders (From admission, onward) Start Ordered 03/24/24 1533 Regular Diet Pancreatitis/Low Fat Diet effective now Question Answer Comment Room Service? Yes Fat restriction: Pancreatitis/Low Fat 03/24/24 1533 Physician Expected Discharge Date: 03/26/2024 Discharge Delays: PT Six Click Score: 24 OT Six Click Score: PT Recommendations: OT Recommendations: New Consults: Normal [facility] 30 The patient is Moderately Stable - Low risk of patient condition declining or worsening The patient's goals for the shift include comfort, rest, and find out what the plan is for him The clinical goals for the shift include VSS Normal [facility] 30 The patient is Moderately Stable - Low risk of patient condition declining or worsening The patient's goals for the shift include The clinical goals for the shift include vss Over the shift, the patient did make progress toward his goals. Normal [facility] APTTon 03-24-2024 ACTIVATED PARTIAL THROMBOPLASTIN TIME IN PPP BY COAGULATION ASSAY 82.8 Seconds High 25.0-35.0 [facility] Comment on above: Result Comment: Clin ical significance of the APTT is questionable in the presence of heparin. Performed By: #### L [id number] #### [facility] ([facility]) [address] [place] [address] ACTIVATED PARTIAL THROMBOPLASTIN TIME IN PPP BY COAGULATION ASSAY 79.2 Seconds High 25.0-35.0 [facility] Comment on above: Result Comment: Clin ical significance of the APTT is questionable in the presence of heparin. Performed By: #### L [id number] #### [facility] ([facility]) [address] [place] [address] ACTIVATED PARTIAL THROMBOPLASTIN TIME IN PPP BY COAGULATION ASSAY 28.7 Seconds Normal 25.0-35.0 [facility] Comment on above: Result Comment: Clin ical significance of the APTT is questionable in the presence of heparin. Performed By: #### L [id number] #### [facility] ([facility]) [address] [place] [address] B-TYPE NATRIURETIC PEPTIDEon 03-24-2024 Natriuretic peptide B (Bld) [Mass/Vol] 331 pg/mL High 0-100 [facility] Comment on above: Performed By: #### L [id number] #### [facility] ([facility]) [address] [place] [address] BASIC METABOLIC PANELon 02-25 Anion gap [Moles/Vol] 12 mmol/L Normal 7-20 [facility] Comment on above: Performed By: #### L [id number] #### [facility] ([facility]) [address] [place] [address] Calcium [Mass/Vol] 8.7 mg/dL Normal 8.6-10.3 [facility] Comment on above: Performed By: #### L [id number] #### [facility] ([facility]) [address] [place] [address] Chloride [Moles/Vol] 105 mmol/L Normal 98-107 [facility] Comment on above: Performed By: #### L [id number] #### [facility] ([facility]) [address] [place] [address] CO2 [Moles/Vol] 23 mmol/L Normal 21-31 [facility] Comment on above: Performed By: #### L [id number] #### [facility] ([facility]) [address] [place] [id number] Creatinine [Mass/Vol] 1.02 mg/dL Normal 0.70-1.30 [facility] Comment on above: Performed By: #### L [id number] #### [facility] ([facility]) [address] [place] [address] GLOMERULAR FILTRATION RATE ML/MIN/1.73 SQ M.PREDICTED 84.7 mL/min/1.73m*2 Normal >60.0 [facility] Comment on above: Result Comment: The [facility]???s estimated glomerular filtration rate (eGFR) will no longer include consideration of race in its calculation. The National Kidney Foundation???s eGFR Task Force developed new recommendations for the estimation of the glomerular filtration rate in the [place] They recommend immediate implementation of the new equation refit without the race variable in all laboratories because the calculation does not include race. In addition to not including race in the calculation and reporting, it included diversity in its development, and has acceptable performance characteristics and potential consequences that do not disproportionately affect any one group of individuals. Performed By: #### L [id number] #### [facility] ([facility]) [address] [place] [address] Glucose [Mass/Vol] 108 mg/dL High 70-100 [facility] Comment on above: Performed By: #### L [id number] #### [facility] ([facility]) [address] [place] [id number] Potassium [Moles/Vol] 4.0 mmol/L Normal 3.5-5.1 [facility] Comment on above: Performed By: #### L [id number] #### [facility] ([facility]) [address] [place] [address] Sodium [Moles/Vol] 136 mmol/L Normal 136-145 [facility] Comment on above: Performed By: #### L [id number] #### [facility] ([facility]) [address] [place] [address] Urea nitrogen [Mass/Vol] 17 mg/dL Normal 7-25 [facility] Comment on above: Performed By: #### L [id number] #### [facility] ([facility]) [address] [place] [address] UREA NITROGEN/CREATININE (MASS RATIO) IN SER/PLAS 16.7 Normal [facility] Comment on above: Performed By: #### L [id number] #### [facility] ([facility]) [address] [place] [address] CBC WITH AUTO DIFFERENTIALon 03-24-2024 Erythrocyte distribution width (RBC) [Ratio] 13.2 % Normal 11.5-15.0 [facility] Comment on above: Performed By: #### L [id number] #### [facility] ([facility]) [address] [place] [address] ERYTHROCYTE MEAN CORPUSCULAR HEMOGLOBIN CONCENTRATION (G/DL) BY AUTOMATED 32.4 g/dL Normal 32.0-35.0 [facility] Comment on above: Performed By: #### L [id number] #### [facility] ([facility]) [address] [place] [address] Hematocrit (Bld) [Volume fraction] 42.6 % Normal 39.0-55.0 [facility] Comment on above: Performed By: #### L [id number] #### [facility] ([facility]) [address] [place] [address] Hemoglobin (Bld) [Mass/Vol] 13.8 g/dL Normal 13.0-17.0 [facility] Comment on above: Performed By: #### L [id number] #### [facility] ([facility]) [address] [place] [address] MCH (RBC) [Entitic mass] 32.3 pg Normal 27.0-33.0 [facility] Comment on above: Performed By: #### L [id number] #### [facility] ([facility]) [address] [place] [id number] MCV (RBC) [Entitic vol] 99.8 fL High 82.0-98.0 [facility] Comment on above: Performed By: #### L [id number] #### [facility] ([facility]) [address] [place] [id number] NRBC (PER 100 WBCS) BY AUTOMATED COUNT 0.0 % Normal 0 [facility] Comment on above: Performed By: #### L [id number] #### [facility] ([facility]) [address] [place] [id number] PLATELETS (10*3/UL) IN BLOOD AUTOMATED COUNT 300 10*3/uL Normal 150-400 [facility] Comment on above: Performed By: #### L [id number] #### [facility] ([facility]) [address] [place] [id number] RBC (Bld) [#/Vol] 4.27 10*6/uL Normal 4.20-5.70 [facility] Comment on above: Performed By: #### L [id number] #### [facility] ([facility]) [address] [place] [id number] WBC (Bld) [#/Vol] 17.06 10*3/uL High 4.00-10.60 [facility] Comment on above: Performed By: #### L [id number] #### [facility] ([facility]) [address] [place] [id number] CONSULTon 03-24-2024 CONSULT --- Attestation signed by Marleny Beltran MD at 03/24/2024 1:30 PM GC: I saw this patient. I personally performed the critical/lin portions that determines the level of service. I was directly involved in the management and treatment plan of the patient. I reviewed resident Dr. Saavedra's note and agree with the documentation. Patient with history of atrial fibrillation and high [id number] score. He was transferred from [facility] for cholecystitis. He had elevated white blood count. Agreed to transfer him to IV heparin. During surgery. He is at moderate risk for perioperative cardiac event but not prohibitive. He can proceed with his surgery. Cardiology Consult Note REASON FOR CONSULT Reason for Consult: A fib with RVR SUBJECTIVE HPI: Denis Sahu is a 58 y.o. male with PMHx significant for Afib on Xarelto, HTN, and Obesity, who presents as transfer from [place] where he initially presented with epigastric/abdominal pain, nausea. Workup showed Cholecystitis. Patient went into Afib with RVR. Dr Beltran stated patient was moderate nonprohibitive risk for surgery, however patient suffered few runs of VT and decision was made to transfer to [facility] for cardiology evaluation. Upon eval, patient feels bad, AAOx4, denies chest pain or pressure, endorses abdominal pain, pressure like, radiating to left shoulder and arm. He endorses SOB with walking even 100 feet and with bending. Able to sleep flat, without extra pillows. No PND. Denies any palpitations currently. Subjective Cardiology ROS: Negative, unless noted in HPI Past Medical History He has no past medical history on file. Surgical History He has a past surgical history that includes Hernia repair and Vasectomy (Right). Social History He reports that he has never smoked. He has never used smokeless tobacco. He reports current drug use. Drug: Marijuana. No history on file for alcohol use. Family History No family history on file. Allergies Ibuprofen Medications Current Outpatient Medications Medication Instructions carvedilol (COREG) 25 mg, oral, 2 times daily with meals citalopram (CELEXA) 40 mg, oral, Daily digoxin (LANOXIN) 125 mg, oral, Once Daily fenofibrate (TRICOR) 145 mg, oral, Daily lisinopril 10 mg, oral, Daily potassium chloride ER (Micro-K) 10 mEq ER capsule 10 mEq, oral, 2 times daily, Do not crush or chew. rivaroxaban (XARELTO) 20 mg, oral, Daily with evening meal, Take with food. tadalafil (CIALIS) 20 mg, oral, Daily PRN Medications Prior to Admission Medication Sig Dispense Refill Last Dose carvedilol (Coreg) 25 mg tablet Take 25 mg by mouth with breakfast and with evening meal. citalopram (CeleXA) 40 mg tablet Take 40 mg by mouth in the morning. digoxin (Lanoxin) 125 MCG tablet Take 125 mg by mouth once daily as directed. fenofibrate (Tricor) 145 mg tablet Take 145 mg by mouth in the morning. lisinopril 10 mg tablet Take 10 mg by mouth in the morning. potassium chloride ER (Micro-K) 10 mEq ER capsule Take 10 mEq by mouth two times daily. Do not crush or chew. rivaroxaban (Xarelto) 20 mg tablet Take 20 mg by mouth daily with evening meal. Take with food. tadalafil (Cialis) 20 mg tablet Take 20 mg by mouth if needed each day for erectile dysfunction. OBJECTIVE Objective Last Recorded Vitals Patient Vitals for the past 24 hrs: BP Temp Temp src Pulse Resp SpO2 Height Weight 03/24/24 0835 118/80 36.6 ???C (97.8 ???F) Temporal 99 18 98 % -- -- 03/24/24 0415 121/83 36.9 ???C (98.5 ???F) Temporal (!) 115 16 90 % -- -- 03/24/24 0110 100/64 -- -- 108 17 -- -- -- 03/24/24 0017 -- -- -- -- -- -- 1.778 m (5' 10 ) 116 kg (255 lb 9.6 oz) 03/23/242000 127/87 36.9 ???C (98.5 ???F) Temporal (!) 131 17 97 % -- -- Physical Examination: Physical Exam Vitals reviewed. Constitutional: General: He is not in acute distress. Appearance: Normal appearance. He is obese. He is ill-appearing. He is not toxic-appearing or diaphoretic. HENT: Head: Normocephalic and atraumatic. Eyes: General: No scleral icterus. Extraocular Movements: Extraocular movements intact. Cardiovascular: Rate and Rhythm: Tachycardia present. Rhythm irregular. Pulses: Normal pulses. Heart sounds: Normal heart sounds. No murmur heard. No friction rub. No gallop. Pulmonary: Effort: Pulmonary effort is normal. Breath sounds: Normal breath sounds. No stridor. No wheezing, rhonchi or rales. Abdominal: General: Bowel sounds are normal. Palpations: Abdomen is soft. There is no mass. Tenderness: There is abdominal tenderness. There is no guarding. Hernia: No hernia is present. Musculoskeletal: Right lower leg: No edema. Left lower leg: No edema. Skin: Capillary Refill: Capillary refill takes less than 2 seconds. Neurological: Gen (more content not included)... Normal [facility] CT ABDOMEN PELVIS W IV CONTR Trina 03-24-2024 CT ABDOMEN PELVIS W IV CONTRAST CT ABDOMEN PELVIS W IV CONTRAST 03/24/2024 10:41 AM SIGN AND SYMPTOMS: Right upper quadrant abdominal pain TECHNIQUE: CT abdomen and pelvis with intravenous contrast. Multiplanar reformats were performed. Appropriate CT dose lowering techniques were utilized. COMPARISON: Abdomen ultrasound performed same day FINDINGS: Lung bases: Right greater than left basilar atelectasis. Bony structures: Advanced degenerative disease of the lumbar spine with prior surgery. No acute bony pathology. ABDOMEN: Cholelithiasis with surrounding inflammation suggesting acute cholecystitis. There is enhancement of the gallbladder fossa consistent with reactive parenchymal hyperemia. There is mild heterogeneity of hepatic parenchyma without any focal lesion demonstrated otherwise. The pancreas, spleen and adrenal glands are within normal limits. Kidneys perfuse symmetrically. No hydronephrosis, solid cortical lesion or inflammatory focus. Small amount of fluid adjacent to proximal duodenum likely associated with adjacent gallbladder inflammation. Stomach is decompressed without evidence of disease. Nonobstructive bowel gas pattern. No free air. Small appendix appears normal. No pericecal inflammation. No evidence of diverticulitis or small bowel inflammatory focus. PELVIS: Urinary bladder wall is thickened and there is am 1.8 cm right posterior lateral bladder wall diverticulum. Prostate gland measures 4.6 cm without gross enlargement. Atherosclerotic disease of the abdominal aorta. No retroperitoneal hematoma or abnormally enlarged retroperitoneal lymph nodes. IMPRESSION: *Cholelithiasis, pericholecystic fluid and reactive hyperemia of the gallbladder fossa compatible with acute cholecystitis. *Urinary bladder wall thickening and diverticulum suggesting chronic bladder outlet obstruction. Electronically signed: Laureano Rojas. Normal [facility] HEPATIC FUNCTION PANELon Albumin [Mass/Vol] 3.9 g/dL Normal 3.5-5.7 [facility] Comment on above: Performed By: #### L [id number] ####[facility] ([facility])[address] [place] [address] ALP [Catalytic activity/Vol] 54 U/L Normal 34-104 [facility] Comment on above: Performed By: #### L [id number] ####[facility] ([facility])[address] [place] [address] ALT [Catalytic activity/Vol] 12 U/L Normal 7-52 [facility] Comment on above: Performed By: #### L [id number] ####[facility] ([facility])[address] [place] [address] AST [Catalytic activity/Vol] 15 U/L Normal 13-39 [facility] Comment on above: Performed By: #### L [id number] ####[facility] ([facility])[address] [place] [address] Bilirubin [Mass/Vol] 1.0 mg/dL Normal 0.3-1.0 [facility] Comment on above: Performed By: #### L [id number] ####[facility] ([facility])[address] [place] [address] Magnesium [Mass/Vol] 0.3 mg/dL High 0-0.2 [facility] Comment on above: Performed By: #### L [id number] ####[facility] ([facility])[address] [place] [address] Protein [Mass/Vol] 6.9 g/dL Normal 6.0-8.3 [facility] Comment on above: Performed By: #### L [id number] ####[facility] ([facility])[address] [place] [address] MAGNESIUMon 03-24-2024 Magnesium [Mass/Vol] 1.7 mg/dL Low 1.9-2.7 [facility] Comment on above: Performed By: #### L [id number] #### [facility] ([facility]) [address] [place] [address] MANUAL DIFFERENTIALon 2023 BASOPHILS (10*3/UL) IN BLOOD BY CALCULATION 0.10 10*3/uL Normal 0.00-0.20 [facility] Comment on above: Performed By: #### L [id number] ####[facility] ([facility])[address] [place] [address] BASOPHILS/100 LEUKOCYTES IN BLOOD BY AUTOMATED COUNT 0.6 % Normal 0.0-1.0 [facility] Comment on above: Performed By: #### L [id number] ####[facility] ([facility])[address] [place] [address] EOSINOPHILS (10*3/UL) IN BLOOD BY CALCULATION 0.03 10*3/uL Normal 0.00-0.50 [facility] Comment on above: Performed By: #### L [id number] ####[facility] ([facility])[address] [place] [address] EOSINOPHILS/100 LEUKOCYTES IN BLOOD BY AUTOMATED COUNT 0.2 % Normal 0.0-6.0 [facility] Comment on above: Performed By: #### L [id number] ####[facility] ([facility])[address] [place] [address] IMMATURE GRANULOCYTES (10*3/UL) IN BLOOD BY CALCULATION 0.09 10*3/uL Normal 0.00-0.20 [facility] Comment on above: Performed By: #### L [id number] ####[facility] ([facility])[address] [place] [address] IMMATURE GRANULOCYTES/100 LEUKOCYTES IN BLOOD BY AUTOMATED COUNT 0.5 % Normal 0.0-1.0 [facility] Comment on above: Performed By: #### L [id number] ####[facility] ([facility])[address] [address] LYMPHOCYTES (10*3/UL) IN BLOOD BY CALCULATION 1.76 10*3/uL Normal 1.20-4.00 [facility] Comment on above: Performed By: #### L [id number] ####[facility] ([facility])[address] [address] LYMPHOCYTES/100 LEUKOCYTES IN BLOOD BY AUTOMATED COUNT 10.3 % Low 20.0-45.0 [facility] Comment on above: Performed By: #### L [id number] ####[facility] ([facility])[address] [address] MONOCYTES (10*3/UL) IN BLOOD BY CALCUATION 1.76 10*3/uL High 0.10-1.00 [facility] Comment on above: Performed By: #### L [id number] ####[facility] ([facility])[address] [address] MONOCYTES/100 LEUKOCYTES IN BLOOD BY AUTOMATED COUNT 10.3 % Normal 5.0-12.0 [facility] Comment on above: Performed By: #### L [id number] ####[facility] ([facility])[address] [address] NEUTROPHILS (10*3/UL) IN BLOOD BY CALCULATION 13.3 10*3/uL High 1.6-7.6 [facility] Comment on above: Performed By: #### L [id number] ####[facility] ([facility])[address] [address] NEUTROPHILS/100 LEUKOCYTES IN BLOOD BY AUTOMATED COUNT 78.1 % High 40.0-72.0 [facility] Comment on above: Performed By: #### L [id number] ####[facility] ([facility])[address] [address] PROTIME-INRon 03-24-2024 INR IN PPP BY COAGULATION ASSAY 1.37 High 0.90-1.10 [facility] Comment on above: Result Comment: [facility] P RECOMMENDED INR FOR [facility] THERAPY CONDITION INR PROPHYLAXIS OF VENOUS THROMBOSIS 2-3 (HIGH-RISK SURGERY) TREATMENT OF VENOUS THROMBOSIS 2-3 TREATMENT OF PULMONARY EMBOLISM 2-3 PREVENTION OF SYSTEMIC EMBOLISM: 2-3 ACUTE MYOCARDIAL INFARCTION TISSUE HEART VALVES VALVULAR HEART DISEASE ATRIAL FIBRILLATION RECURRENT SYSTEMIC EMBOLISM MECHANICAL HEART VALVE 2.5-3.5 FROM: ORAL ANTICOAGULANTS. MECHANISM OF ACTION, CLINICAL EFFECTIVENESS, AND OPTIMAL THERAPEUTIC RANGE. CHEST 1995;108:231S-246S. Performed By: #### L [id number] ####[facility] ([facility])[address] [place] [address] PROTHROMBIN TIME (PT) IN PPP BY COAGULATION ASSAY 16.7 Seconds High 12.3-14.8 [facility] Comment on above: Performed By: #### L [id number] ####[facility] ([facility])[address] [place] [address] INR IN PPP BY COAGULATION ASSAY 1.28 High 0.90-1.10 [facility] Comment on above: Result Comment: [facility] P RECOMMENDED INR FOR WARFARIN THERAPY CONDITION INR PROPHYLAXIS OF VENOUS THROMBOSIS 2-3 (HIGH-RISK SURGERY) TREATMENT OF VENOUS THROMBOSIS 2-3 TREATMENT OF PULMONARY EMBOLISM 2-3 PREVENTION OF SYSTEMIC EMBOLISM: 2-3 ACUTE MYOCARDIAL INFARCTION TISSUE HEART VALVES VALVULAR HEART DISEASE ATRIAL FIBRILLATION RECURRENT SYSTEMIC EMBOLISM MECHANICAL HEART VALVE 2.5-3.5 FROM: ORAL ANTICOAGULANTS. MECHANISM OF ACTION, CLINICAL EFFECTIVENESS, AND OPTIMAL THERAPEUTIC RANGE. CHEST 1995;108:231S-246S. Performed By: #### L [id number] #### [facility] ([facility]) [address] [place] [address] PROTHROMBIN TIME (PT) IN PPP BY COAGULATION ASSAY 15.9 Seconds High 12.3-14.8 [facility] Comment on above: Performed By: #### L [id number] #### [facility] ([facility]) [address] [place] [address] TROPONIN Ion 03-24-2024 Troponin I.cardiac [Mass/Vol] 0.01 ng/mL Normal 0.00-0.04 [facility] Comment on above: Performed By: #### L [id number] ####[facility] ([facility])[address] [place] [address] TYPE AND SCREENon 03-24-2024 AB SCREEN Negative Normal [facility] Comment on above: Performed By: #### L [id number] ####[facility] BLOOD BANK, ABO group Nom (Bld) B Normal [facility] Comment on above: Performed By: #### L [id number] ####[facility] B[facility]OD [facility], RH TYPE IN BLOOD Positive Normal [facility] Comment on above: Performed By: #### L [id number] ####[facility] B[facility]OD [facility], CONSULTon 03-23-2024 CONSULT Reason For Consult acute cholecystitis, known pt Referring Provider: Chung Perkins MD History Of Present Illness Denis Sahu is a 58 y.o. male presenting with acute cholecystitis. Patient has past medical history of paroxysmal atrial fibrillation on Xarelto, hypertension, and morbid obesity. Patient transferred from [facility]. Patient presented to the emergency department at [facility] reporting shortness of breath and chest pain. Patient began experiencing epigastric and right upper quadrant abdominal pain accompanied by nausea. Patient reports he has not taken his carvedilol or digoxin for 3 days prior to presentation. Patient was admitted to [facility] for acute cholecystitis and was started on Zosyn therapy. Surgeon at outside hospital was concerned about patient experiencing short runs of V. tach and requested patient be transferred to hospital with cardiology service. Patient denies chest pain, shortness of breath, nausea, vomiting, body aches, chills, fever. Patient noted to be tachycardic with right upper quadrant abdominal pain. Past Medical History He has no past medical history on file. Surgical History He has a past surgical history that includes Hernia repair and Vasectomy (Right). Family History No family history on file. Social History He reports that he has never smoked. He has never used smokeless tobacco. He reports current drug use. Drug: Marijuana. No history on file for alcohol use. Allergies Ibuprofen Medications Medications Prior to Admission Medication Sig Dispense Refill Last Dose carvedilol (Coreg) 25 mg tablet Take 25 mg by mouth with breakfast and with evening meal. citalopram (CeleXA) 40 mg tablet Take 40 mg by mouth in the morning. digoxin (Lanoxin) 125 MCG tablet Take 125 mg by mouth once daily as directed. fenofibrate (Tricor) 145 mg tablet Take 145 mg by mouth in the morning. lisinopril 10 mg tablet Take 10 mg by mouth in the morning. potassium chloride ER (Micro-K) 10 mEq ER capsule Take 10 mEq by mouth two times daily. Do not crush or chew. rivaroxaban (Xarelto) 20 mg tablet Take 20 mg by mouth daily with evening meal. Take with food. tadalafil (Cialis) 20 mg tablet Take 20 mg by mouth if needed each day for erectile dysfunction. Active Hospital Medications Medication Dose Route Frequency Last Admin acetaminophen 650 mg oral q6h PRN 650 mg at 03/24/24 0001 bisacodyl 10 mg rectal Daily PRN carvedilol 25 mg oral BID with meals cefTRIAXone 1 g intravenous q24h Stopped at 03/24/24 0031 digoxin 125 mcg oral Daily heparin 0-28 Units/kg/hr intravenous Continuous 15 Units/kg/hr at 03/24/24 0102 hydrOXYzine pamoate 25 mg oral BID PRN lisinopril 10 mg oral Daily melatonin 5 mg oral Nightly PRN metroNIDAZOLE 500 mg intravenous q12h Stopped at 03/24/24 0101 morphine 2 mg intravenous q6h PRN ondansetron ODT 4 mg oral q8h PRN Or ondansetron 4 mg intravenous q6h PRN 4 mg at 03/24/24 0001 pantoprazole 40 mg oral Daily polyethylene glycol 17 g oral Daily PRN potassium chloride CR 10 mEq oral BID 10 mEq at 03/24/24 0001 sodium chloride 50 mL/hr intravenous Continuous 50 mL/hr at 03/24/24 0000 Review of Systems 12 point review of systems completed. All pertinent positives and negatives annotated in HPI. All other systems negative. Last Recorded Vitals Patient Vitals for the past 24 hrs: BP Temp Temp src Pulse Resp SpO2 Height Weight 03/24/24 0110 100/64 -- -- 108 17 -- -- -- 03/24/24 0017 -- -- -- -- -- -- 1.778 m (5' 10 ) 116 kg (255 lb 9.6 oz) 03/23/242000 127/87 36.9 ???C (98.5 ???F) Temporal (!) 131 17 97 % -- -- Physical Exam Physical Exam Vitals and nursing note reviewed. Constitutional: Appearance: Normal appearance. He is obese. HENT: Head: Normocephalic and atraumatic. Nose: Nose normal. Mouth/Throat: Mouth: Mucous membranes are moist. Pharynx: Oropharynx is clear. Eyes: Extraocular Movements: Extraocular movements intact. Conjunctiva/sclera: Conjunctivae normal. Cardiovascular: Rate and Rhythm: Normal rate and regular rhythm. Pulses: Normal pulses. Heart sounds: Normal heart sounds. Pulmonary: Effort: Pulmonary effort is normal. Breath sounds: Normal breath sounds. Abdominal: General: Abdomen is protuberant. Bowel sounds are normal. Palpations: Abdomen is soft. Tenderness: There is abdominal tenderness in the right upper quadrant. There is no guarding. Positive signs include Costa's sign. Musculoskeletal: General: Normal range of motion. Cervical back: Normal range of motion. Skin: General: Skin is warm and dry. Capillary Refill: Capillary refill takes less than 2 seconds. Neurological: General: No focal deficit present. Mental Status: He is alert and oriented to person, place, and time. Psychiatric: Mood and Affect: Mood normal. Behavior: Behavior normal. Relevant Results Admission on 03/23/2024 Component Date Value Ref Rang (more content not included)... Normal [facility] ACUTE HEPATITIS PANELon ANTI HCV W/PCR REFLX Non-Reactive Normal [facility] Comment on above: Result Comment: If recent infection suspected, recommend repeat testing (>2 months). Ercifw-ko-yoqtuf ratio is <0.80. Performed By: #### [place], [id number], [id number] #### [facility] ([id number]) [address], [facility] [address] [place] [address] HEPATITIS A IGM Non-Reactive Normal [facility] Comment on above: Performed By: #### [place], [id number], 39912-3 #### [facility] ([id number]) [address], [address] [address] HEPATITIS B CORE IGM Negative Normal [facility] Comment on above: Performed By: #### [place], [id number], [id number] #### [facility] ([id number]) [address], [address] [place] [address] HEPATITIS B SURF AG Negative Normal [facility] Comment on above: Performed By: #### [place], 45236-1, 09086-0 #### [facility] ([id number]) [address], [address] [address] HIV 1+2 Ab+HIV1 p24 Ag IA Ql on 09-25-2023 HIV 1 and 2 Ab/Ag Screen Non-Reactive Normal [facility] Comment on above: Result Comment: This information has been disclosed to you from confidential records protected from disclosure by state law. You shall make no further disclosure of this information without the specific, written and informed release of the individual to whom it pertains, or as otherwise permitted by state law. A general authorization for the release of medical or other information is not sufficient for the purpose of the release of HIV test results or diagnoses. Performed By: #### A , [id number], 32901-3 #### [facility] ([id number]) [address], [address] [place] [address] T. pallidum IgG+IgM IA Ql (S )on 09-25-2023 Syphilis Total <0.2 Normal 0.0-0.8 [facility] Comment on above: Result Comment: NON REACTIVE No serologic evidence of infection to Treponema pallidum (syphilis). Repeat testing may be considered in patients with suspected acute or primary syphilis in 2 to 4 weeks. Performed By: #### A , [id number], 27846-4 #### [facility] ([id number]) [address], [address] [place] [address] CT ABD/PELV W CONon 01-10-20 CT ABD/PELV W CON EXAMINATION: CT CHES T W CON, CT ABD/PELV W CON HISTORY: SHORTNESS OF BREATH [. Vomiting and diarrhea. COMPARISON: None available. TECHNIQUE: CT examination of the chest, abdomen, and pelvis after the administration of intravenous contrast. Coronal and sagittal reformations were performed. Dose reduction techniques were achieved by using automated exposure control and/or adjustment of mA and/or kV according to patient size and/or use of iterative reconstruction technique. FINDINGS: CT thorax: The thoracic aorta is normal in course and caliber without aneurysm or dissection. No central pulmonary embolism. Calcified coronary artery atherosclerosis is suggested. The heart appears normal with no evidence of pericardial effusion. There are no enlarged mediastinal lymph nodes. The tracheobronchial tree is patent. The lungs are clear. There is no consolidation, mass or pleural effusion. There is no pneumothorax. CT abdomen and pelvis: The liver, spleen, pancreas and bilateral adrenal glands are unremarkable. 1.5 cm cholelith is present within the gallbladder which is not abnormally distended without inflammatory change. The bilateral kidneys demonstrate normal enhancement without hydronephrosis. Simple cyst on the right measures 1.8 cm as well as subcentimeter left likely simple renal cyst. The bilateral ureters demonstrate no gross abnormality or obstruction. The stomach and small bowel are unremarkable. The appendix is not definitively identified; however no pericecal inflammatory changes present. The colon is unremarkable. Small right bladder diverticulum is present. There is no evidence of aortic aneurysm present. No enlarged lymph nodes are seen. No free air or free fluid is seen. The prostate gland is nonenlarged with coarse calcifications present Osseous structures:Diffuse anterior bridging osteophytes throughout the thoracic spine are present. No compression fracture deformities or suspicious osseous. Diffuse discogenic degenerative change throughout the lumbar spine with osseous ankylosis L4-L5 and posterior fusion at the spinous processes. IMPRESSION: CT thorax: 1. No acute cardiac pulmonary process identified. The lungs are clear. 2. Coronary artery atherosclerosis. CT abdomen and pelvis: 1. No acute intra-abdominal inflammatory process identified. 2. Cholelithiasis without inflammatory change or abnormal distention of the gallbladder. 3. Simple renal cysts. 4. Small right urinary bladder diverticulum. Electronically authenticated by: ELBERT ROSALES Date: 2022-01-09 00:26 Normal [facility] XR CHEST 1 Von 01-09-2022 XR CHEST 1 V EXAMINATION: XR CHES T 1 V HISTORY: Shortness of breath COMPARISON: None. TECHNIQUE: Portable chest FINDINGS: The lung parenchyma is free of consolidation or infiltrate. No pneumothorax or pleural effusion. The cardiac, mediastinal and hilar contours are normal. The visualized osseous structures exhibit no gross abnormality. IMPRESSION: Normal chest x-ray Electronically authenticated by: SHONDA RAY Date: 2022-01-08 22:09 Normal [facility] BNPon 01-08-2022 Natriuretic peptide B (Bld) [Mass/Vol] 895.0 pg/mL Normal <=900.0 [facility] Comment on above: Performed By: #### H STROPN, LIPA, BNP, CMP #### [facility] [address] [address] [address] Teresa England CBC AUTO DIFFon 01-08-2022 BASO # 0.0 103/ul Normal 0.0-0.1 [facility] Comment on above: Performed By: #### C BC #### [facility] [address] [address] [address] Teresa England Basophils/100 WBC (Bld) 0.6 % Normal 0.2-2.0 [facility] Comment on above: Performed By: #### C BC #### [facility] [address] [place] [address] Dr. Teresa England EO # 0.0 103/ul Normal 0.0-0.7 [facility] Comment on above: Performed By: #### C BC #### [facility] [address] [place] [address] Dr. Teresa England Eosinophils/100 WBC (Bld) 0.6 % Critically low 0.9-7.0 [facility] Comment on above: Performed By: #### C BC #### [facility] [address] [place] [address] Dr. Teresa England Erythrocyte distribution width (RBC) [Ratio] 12.7 % Normal 11.0-15.0 [facility] Comment on above: Performed By: #### C BC #### [facility] [address] [place] [address] Dr. Teresa England Hematocrit (Bld) [Volume fraction] 51.0 % Normal 42.0-54.0 [facility] Comment on above: Performed By: #### C BC #### [facility] [address] [place] [address] Dr. Teresa England Hemoglobin (Bld) [Mass/Vol] 16.9 g/dL Normal 14.0-18.0 [facility] Comment on above: Performed By: #### C BC #### [facility] [address] [place] [address] Dr. Teresa England IG # 0.02 10e3/ul Normal 0.00-0.03 [facility] Comment on above: Performed By: #### C BC #### [facility] [address] [place] [address] Dr. Teresa England IG % 0.4 % Normal 0.0-0.5 [facility] Comment on above: Performed By: #### C BC #### [facility] [address] [place] [address] Dr. Teresa England LYMPH # 1.3 103/ul Normal 1.2-3.8 [facility] Comment on above: Performed By: #### C BC #### [facility] [address] [place] [address] Dr. Teresa England Lymphocytes/100 WBC (Bld) 24.5 % Normal 20.5-60.0 [facility] Comment on above: Performed By: #### C BC #### [facility] [address] [place] [address] Dr. Teresa England MANUAL DIFF REQ NO Normal [facility] Comment on above: Performed By: #### C BC #### [facility] [address] [place] [address] Dr. Teresa England MCH (RBC) [Entitic mass] 32.3 pg Normal 25.9-34.0 [facility] Comment on above: Performed By: #### C BC #### [facility] [address] [place] [address] Dr. Teresa England MCHC (RBC) [Mass/Vol] 33.1 g/dL Normal 29.9-35.2 [facility] Comment on above: Performed By: #### C BC #### [facility] [address] [place] [address] Dr. Teresa England MCV (RBC) [Entitic vol] 97.3 fL Critically high 80.0-94.0 [facility] Comment on above: Performed By: #### C BC #### [facility] [address] [place] [address] Dr. Teresa England MONO # 1.0 103/ul Critically high 0.3-0.8 [facility] Comment on above: Performed By: #### C BC #### [facility] [address] [place] [address] Dr. Teresa England Monocytes/100 WBC (Bld) 18.2 % Critically high 1.7-12.0 [facility] Comment on above: Performed By: #### C BC #### [facility] [address] [place] [address] Dr. Teresa England NEUT # 3.0 103/ul Normal 1.4-6.5 [facility] Comment on above: Performed By: #### C BC #### [facility] [address] [address] [address] Teresa England Neutrophils/100 WBC (Bld) 55.7 % Normal 43.0-75.0 [facility] Comment on above: Performed By: #### C BC #### [facility] [address] [address] [address] Teresa England Platelet mean volume (Bld) [Entitic vol] 10.3 fL Normal 9.5-13.5 [facility] Comment on above: Performed By: #### C BC #### [facility] [address] [place] [address] Dr. Teresa England PLT 217 103/ul Normal 150-450 [facility] Comment on above: Performed By: #### C BC #### [facility] [address] [address] [address] Teresa England RBC 5.24 106/ul Normal 4.70-6.10 [facility] Comment on above: Performed By: #### C BC #### [facility] [address] [address] [address] Teresa England WBC 5.4 103/ul Normal 4.0-11.0 [facility] Comment on above: Performed By: #### C BC #### [facility] [address] [place] [address] Dr. Teresa England DIGOXINon 01-08-2022 DIG 0.3 ng/mL Critically low 0.9-2.0 [facility] Comment on above: Performed By: #### D IG ####[facility] [id number] [address] Teresa England LACTATE/LACTIC ACIDon 2021 Lactate [Moles/Vol] 1.6 mmol/L Normal 0.4-1.9 [facility] Comment on above: Performed By: #### L ACT #### [facility] [address] [address] [address] Teresa England LIPASEon 01-08-2022 Lipase [Catalytic activity/Vol] 149.0 U/L Normal 73.0-393.0 [facility] Comment on above: Performed By: #### H STROPN, LIPA, BNP, CMP #### [facility] [address] [address] [address] Teresa England PROF 14(COMP METB)on 022 Albumin [Mass/Vol] 4.0 g/dL Normal 3.4-5.0 [facility] Comment on above: Performed By: #### H STROPN, LIPA, BNP, CMP #### [facility] [address] [address] [address] Teresa England Albumin/Globulin [Mass ratio] 1.0 {ratio} Normal [facility] Comment on above: Performed By: #### H STROPN, LIPA, BNP, CMP #### [facility] [address] [address] [address] Teresa England ALP [Catalytic activity/Vol] 46 U/L Normal 46-116 [facility] Comment on above: Performed By: #### H STROPN, LIPA, BNP, CMP #### [facility] [address] [address] [address] Teresa England ALT [Catalytic activity/Vol] 67 U/L Critically high 16-63 [facility] Comment on above: Performed By: #### H STROPN, LIPA, BNP, CMP #### [facility] [address] [address] [address] Teresa England Anion gap [Moles/Vol] 10.9 mmol/L Normal [facility] Comment on above: Performed By: #### H STROPN, LIPA, BNP, CMP #### [facility] [address] [address] [address] Teresa England AST [Catalytic activity/Vol] 58 U/L Critically high 15-37 [facility] Comment on above: Performed By: #### H STROPN, LIPA, BNP, CMP #### [facility] [address] [address] [address] Teresa England Bilirubin [Mass/Vol] 0.9 mg/dL Normal 0.2-1.0 [facility] Comment on above: Performed By: #### H STROPN, LIPA, BNP, CMP #### [facility] [address] [place] [address] Dr. Teresa England Calcium [Mass/Vol] 9.1 mg/dL Normal 8.5-10.1 [facility] Comment on above: Performed By: #### H STROPN, LIPA, BNP, CMP #### [facility] [address] [place] [address] Dr. Teresa England Chloride [Moles/Vol] 103 mmol/L Normal 98-107 [facility] Comment on above: Performed By: #### H STROPN, LIPA, BNP, CMP #### [facility] [address] [place] [address] Dr. Teresa England CO2 [Moles/Vol] 26.3 mmol/L Normal 21.0-32.0 [facility] Comment on above: Performed By: #### H STROPN, LIPA, BNP, CMP #### [facility] [address] [place] [address] Dr. Teresa England Creatinine [Mass/Vol] 1.21 mg/dL Normal 0.70-1.30 [facility] Comment on above: Performed By: #### H STROPN, LIPA, BNP, CMP #### [facility] [address] [place] [address] Dr. Teresa England EGFR-AF NIGERIAN >60 Normal >=60 [facility] Comment on above: Performed By: #### H STROPN, LIPA, BNP, CMP #### [facility] [address] [place] [address] Dr. Teresa England EGFR-NON AF NIGERIAN >60 Normal >=60 [facility] Comment on above: Performed By: #### H STROPN, LIPA, BNP, CMP #### [facility] [address] [place] [address] Dr. Teresa England Globulin (S) [Mass/Vol] 4.1 g/dL Normal [facility] Comment on above: Performed By: #### H STROPN, LIPA, BNP, CMP #### [facility] [address] [address] [address] Teresa England Glucose [Mass/Vol] 122 mg/dL Critically high 74-106 [facility] Comment on above: Performed By: #### H STROPN, LIPA, BNP, CMP #### [facility] [address] [place] [address] Dr. Teresa England Potassium [Moles/Vol] 4.2 mmol/L Normal 3.5-5.1 [facility] Comment on above: Performed By: #### H STROPN, LIPA, BNP, CMP #### [facility] [address] [address] [address] Teresa England Protein [Mass/Vol] 8.1 g/dL Normal 6.4-8.2 [facility] Comment on above: Performed By: #### H STROPN, LIPA, BNP, CMP #### [facility] [address] [place] [address] Dr. Teresa England Sodium [Moles/Vol] 136 mmol/L Normal 136-145 [facility] Comment on above: Performed By: #### H STROPN, LIPA, BNP, CMP #### [facility] [address] [place] [address] Dr. Teresa England Urea nitrogen [Mass/Vol] 12.0 mg/dL Normal 7.0-18.0 [facility] Comment on above: Performed By: #### H STROPN, LIPA, BNP, CMP #### [facility] [address] [place] [address] Dr. Teresa England Urea nitrogen/Creatinine [Mass ratio] 9.9 mg/mg Normal [facility] Comment on above: Performed By: #### H STROPN, LIPA, BNP, CMP #### [facility] [address] [place] [address] Dr. Teresa England PROTIMEon 01-08-2022 INR Coag (PPP) [Relative time] 1.22 {INR} Normal [facility] Comment on above: Performed By: #### P T, PTT #### [facility] [address] [address] [address] Teresa England INR GUIDELINES SEE BELOW Normal [facility] Comment on above: Result Comment: COURTNEY RED INR: 2.0 - 3.0 CONDITIONS NOT LISTED BELOW 2.5 - 3.5 FOR PROSTHETIC HEART VALVE REPLACEMENT 2.5 - 3.5 RECURRENT THROMBOSIS Performed By: #### P T, PTT #### [facility] [address] [address] [address] Teresa England PT Coag (PPP) [Time] 13.0 s Critically high 9.0-11.6 [facility] Comment on above: Performed By: #### P T, PTT #### [facility] [address] [address] [address] Teresa England PTTon 01-08-2022 aPTT Coag (Bld) [Time] 30.1 s Normal 22.3-36.2 [facility] Comment on above: Performed By: #### P T, PTT #### [facility] [address] [address] [address] Teresa England TROPONIN, HIGH SENSITIVITYon 01-08-2022 HSTROP 17.3 pg/mL Normal 4.0-76.1 [facility] Comment on above: Result Comment: CUT- OFF POINTS HAVE BEEN ESTABLISHED BASED ON THE FOURTH UNIVERSAL DEFINITIONS OF MYOCARDIAL INFARCTION. THE UPPER REFERENCE LIMIT (URL) OF TROPONIN, DEFINED THE 99TH PERCENTILE OF cTnI DISTRIBUTION IN A REFERENCE POPULATION, HAS BEEN CONFIRMED THE DECISION THRESHOLD FOR AR DIAGNOSIS. Performed By: #### H STROPN, LIPA, BNP, CMP ####[facility] [address] [place], [place] [address]GnDr. Teresa England Provider Letter [facility]-[place] Provider Letter [facility] [place] 10, 2021 Genet Feliciano, [address] [place] [address] [place] [address] Re: DENIS SAHU Date of : 1965 Thank you for your referral of Denis Sahu who was seen on consultation on January 01, 2021, for multiple recurrent skin cysts on face and neck. I have enclosed my consultation notes for your review. Sincerely, James Esparza MD General Surgery Normal [facility] Facesheeton 01-02-2021 Facesheet [id number] D:127 Normal [facility] Ambulatory Clinical Summaryo n 01-01-2021 Ambulatory Clinical Summary {[id number] Normal [facility] Patient Educationon 01-02-20 Patient Education Physical Medicine an d Rehabilitation Exercising to Lose Weight Exercise is structured, repetitive physical activity to improve fitness and health. Getting regular exercise is important for everyone. It is especially important if you are overweight. Being overweight increases your risk of heart disease, stroke, diabetes, high blood pressure, and several types of cancer. Reducing your calorie intake and exercising can help you lose weight. Exercise is usually categorized as moderate or vigorous intensity. To lose weight, most people need to do a certain amount of moderate-intensity or vigorous-intensity exercise each week. Moderate-intensity exercise Moderate-intensity exercise is any activity that gets you moving enough to burn at least three times more energy (calories) than if you were sitting. Examples of moderate exercise include: ? Walking a mile in 15 minutes. ? Doing light yard work. ? Biking at an easy pace. Most people should get at least 150 minutes (2 hours and 30 minutes) a week of moderate-intensity exercise to maintain their body weight. Vigorous-intensity exercise Vigorous-intensity exercise is any activity that gets you moving enough to burn at least six times more calories than if you were sitting. When you exercise at this intensity, you should be working hard enough that you are not able to carry on a conversation. Examples of vigorous exercise include: ? Running. ? Playing a team sport, such as football, basketball, and soccer. ? Jumping rope. Most people should get at least 75 minutes (1 hour and 15 minutes) a week of vigorous-intensity exercise to maintain their body weight. How can exercise affect me? When you exercise enough to burn more calories than you eat, you lose weight. Exercise also reduces body fat and builds muscle. The more muscle you have, the more calories you burn. Exercise also: ? Improves mood. ? Reduces stress and tension. ? Improves your overall fitness, flexibility, and endurance. ? Increases bone strength. The amount of exercise you need to lose weight depends on: ? Your age. ? The type of exercise. ? Any health conditions you have. ? Your overall physical ability. Talk to your health care provider about how much exercise you need and what types of activities are safe for you. What actions can I take to lose weight? Nutrition ? Make changes to your diet as told by your health care provider or diet and media reconciliation specialist (dietitian). This may include: ? Eating fewer calories. ? Eating more protein. ? Eating less unhealthy fats. ? Eating a diet that includes fresh fruits and vegetables, whole grains, low-fat dairy products, and lean protein. ? Avoiding foods with added fat, salt, and sugar. ? Drink plenty of water while you exercise to prevent dehydration or heat stroke. Activity ? Choose an activity that you enjoy and set realistic goals. Your health care provider can help you make an exercise plan that works for you. ? Exercise at a moderate or vigorous intensity most days of the week. ? The intensity of exercise may vary from person to person. You can tell how intense a workout is for you by paying attention to your breathing and heartbeat. Most people will notice their breathing and heartbeat get faster with more intense exercise. ? Do resistance training twice each week, such as: ? Push-ups. ? Sit-ups. ? Lifting weights. ? Using resistance bands. ? Getting short amounts of exercise can be just as helpful as long structured periods of exercise. If you have trouble finding time to exercise, try to include exercise in your daily routine. ? Get up, stretch, and walk around every 30 minutes throughout the day. ? Go for a walk during your lunch break. ? Park your car farther away from your destination. ? If you take public transportation, get off one stop early and walk the rest of the way. ? Make phone calls while standing up and walking around. ? Take the stairs instead of elevators or escalators. ? Wear comfortable clothes and shoes with good support. ? Do not exercise so much that you hurt yourself, feel dizzy, or get very short of breath. Where to find more information ? U.[place]. Department of Health and Human Services: www.hhs.gov ? Centers for Disease Control and Prevention (CDC): www.cdc.gov Contact a health care provider: ? Before starting a new exercise program. ? If you have questions or concerns about your weight. ? If you have a medical problem that keeps you from exercising. Get help right away if you have any of the following while exercising: ? Injury. ? Dizziness. ? Difficulty breathing or shortness of breath that does not go away when you stop exercising. ? Chest pain. ? Rapid heartbeat. Summary ? Being overweight increases your risk of heart disease, stroke, diabetes, high blood pressure, and several types of cancer. ? Losing weight villalobos (more content not included)... Normal [facility] Physician Referralon 021 Physician Referral [id number] D:127 [facility] Encounters Encounter Date Encounter Type Care Provider Facility Start: 04-10-2024 End: 04-10-2024 ambulatory ABA MCCURDY [facility] Start: 04-03-2024 End: 04-03-2024 ambulatory LUCA CHEN [facility] Start: 03-24-2024 Evaluation and management of inpatient TONY ARTEAGA ENGLAND [facility] Start: 03-24-2024 Evaluation and management of inpatient CHUNG M [facility] Start: 03-23-2024 Evaluation and management of inpatient CHUNG Ricardo [facility] Start: 03-23-2024 End: 03-26-2024 Evaluation and management of inpatient ALEXANDRE JEFFERSON [facility] Start: 09-25-2023 End: 09-26-2023 ambulatory GENET FELICIANO [facility] Start: 01-29-[address] GENET FELICIANO Facility :[facility] Start: 01-08-2022 End: 01-09-[address] GENET FELICIANO Facility:[facility] Payers Date Payer Category Payer Medicaid [birth year] Unknown [id number] 1965 Unknown [id number] 1965 Unknown [id number] 1960 Self-pay [id number] 1960 Unknown [id number] Clinical Notes 01-06-2021 to 04-10-2024 Note Date & Type Note Facility 04-10-2024 Note Subjective Patient ID: Denis Sahu is a 58 y.o. male who presents for Post-op (Denis is here today for post op visit: s/p 03/25/24 subtotal cholecystectomy and drain placement/Patient states he took the bulb off due to it being caught on things /He has not had any drainage in over a week ). HPI Patient reports no significant abdominal pain Reports good appetite and normal bowel movements Overall patient feels well Review of Systems Constitutional: Negative. HENT: Negative. Respiratory: Positive for shortness of breath. Cardiovascular: Negative. Gastrointestinal: Negative. Genitourinary: Negative. Musculoskeletal: Negative. Neurological: Negative. Hematological: Negative. Psychiatric/Behavioral: Negative. Objective Visit Vitals BP 107/75 (BP Location: Right arm, Patient Position: Sitting) Pulse 90 Temp 37.4 ???C (99.3 ???F) (Oral) Physical Exam General Appearance: No acute distress, appears comfortable Head: normocephalic, eye nonicteric Respiratory: Breathing room air, normal respiratory effort Abdomen: Soft, nontender, nondistended. Port site skin incisions appears well-healed. Right upper quadrant abdominal Slim drain in place currently with no output Integument: no edema, no jaundice Assessment/Plan Diagnoses and all orders for this visit: Acute cholecystitis due to biliary calculus Patient with acute cholecystitis, now status post laparoscopic subtotal cholecystectomy on 03/22/2024. Right upper quadrant abdominal drain with no output over the last several days, patient have removed the bulb himself. The drain is removed in office today. Patient instructed to cover the drain site with Band-Aid for the next 7 days. Otherwise follow-up with general surgery as needed No diagnosis found. No orders of the defined types were placed in this encounter. No results found for this or any previous visit (from the past 36 hour(s)). No follow-ups on file. [facility] 04-03-2024 Note CLINICAL HISTORY: Ch olecystitis, abdominal pain. TECHNIQUE/PROCEDURE: CT abdomen and pelvis with intravenous contrast. Automated exposure control was utilized. COMPARISON: 03/24/2024. FINDINGS: No acute findings lower thorax. Unremarkable right adrenal gland, pancreas, spleen, kidneys. Fat stranding about the gallbladder, interval placement of surgical drain within the gallbladder lumen, decreased degree of gallbladder distention. Prior cholelithiasis no longer evident. No dilatation or wall thickening of the bowel. Normal appendix No free fluid or fluid collections. No aggressive osseous lesions. Degenerative changes about the hips. Diffuse idiopathic skeletal hyperostosis, moderate to severe thecal sac narrowing at L3-4. Interspinous fixation at the L4-5 level. No acute appearing occlusion of major visceral vasculature. Prostamegaly. IMPRESSION: *Interval cholelithotomy, placement of surgical drain within the gallbladder, decreasing pericholecystic inflammatory change. No new or growing collections within the abdomen or pelvis. *Advanced multilevel degenerative changes, rigid spine due to diffuse hepatic cell hyperostosis. Consider lumbar spine MRI. All CT scans at this facility use dose modulation, iterative reconstruction, and/or weight based dosing when appropriate to reduce radiation dose to as low as reasonably achievable. Electronically signed: Pedro Sanders MD. Not Vldtd [facility] 04-03-2024 Note Subjective Patient ID: Denis Sahu is a 58 y.o. male who presents for Post-op (Denis is her/e today for post op visit: S/p Lap Alma Delia with drain placement x2 03/25/ /). HPI S/p subtotal choelcystectomy on 03/25. Reports output was between 100-200 ml for the gallbladder drain but has been coming down to 30 ml per 24 hours. He reported yesterday there was some dark bilious output but serous today. Denies fever, chills, abdominal pain. Subdiaphragmatic drain with minimal output. Review of Systems Constitutional: Positive for fatigue. HENT: Negative. Eyes: Negative. Respiratory: Positive for shortness of breath. Cardiovascular: Positive for chest pain. Gastrointestinal: Negative. Genitourinary: Negative. Musculoskeletal: Positive for gait problem. Skin: Negative. Hematological: Negative. Objective Visit Vitals BP 126/66 (BP Location: Right arm, Patient Position: Sitting) Pulse 81 Temp 36.9 ???C (98.5 ???F) Physical Exam Gen: no acute distress, sitting up in chair Neuro: alert, awake, oriented x3, motor and sensory grossly intact HEENT: atraumatic, normocephalic, PERRL, mucosa pink and dry CVS: regular rate, palpable radial pulses bilaterally Resp: non labored breathing on room air ABD: incisions clean and dry, soft, mild tenderness, non distended. Right medial drain with serous drainage and right lateral drain with serous light bilious tinge MSK: no pitting edema Skin: warm to touch CT ABD/p: lateral drain goes into gallbladder remnant, appropriately placed. Medial drain subdiaphragmatic, appropriately placed. Assessment/Plan 58 year old man s/p subtotal cholecystectomy and drain placement, no obvious bilious leak but some bilious output yesterday. Medial drain (subdiaphragmatic) removed in clinic Lateral drain (gallbladder) keep in place Continue to monitor and record output, follow-up in 1 week for possible removal of drain. No diagnosis found. No orders of the defined types were placed in this encounter. No results found for this or any previous visit (from the past 36 hour(s)). No follow-ups on file. [facility] 03-26-2024 Note Hospital Medicine Discharge Summary Final Discharge Diagnosis: Acute cholecystis Afib with RVR Hypomagnesemia Obesity class II Essential hypertension Coagulopathy Admission Diagnosis: Acute cholecystitis [K81.0] Hospital course: Mr. Denis Sahu is an 58 y.o. male with past medical history of paroxysmal A-fib, on Xarelto, hypertension and obesity. He presented to [facility] as a transfer from [facility] on 03/23/2024. Patient initially presented to [facility] ER with chest pain and shortness of breath and then while in the ER, his chest pain resolved however he started to have epigastric and right upper quadrant pain. He also had nausea but no vomiting. He also complained of palpitations and was found to be in A-fib with RVR. He reported that he did not take his digoxin and carvedilol for 3 days prior to presentation. On the workup, he was found to have acute cholecystitis and was admitted to the hospital there. General surgery started him on Zosyn and they consulted cardiology for surgical clearance. Helminthology Teacher, Dr. Beltran cleared him for the surgery. Per report, patient is moderate risk for surgical complications. However, surgeon was concerned about short runs of V. tach on telemetry. On EKG findings were consistent with NSVT. They wanted patient to be transferred to the hospital with cardiology service so surgery department at [facility] was reached out and they agreed to accept the patient. Surgical service wanted patient to be admitted to hospitalist because of A-fib. Patient's medications were optimized in regards to Afib. He didn't have repeat episode of non-sustained VT. He underwent laparoscopic cholecystectomy on 03/25. In the OR, general surgery found bilious ascites throughout concerning for possible perforation, large stone removed. Patient tolerated procedure well. On 03/26, general surgery was ok with the patient being discharged. Cardiology thought the rate-control medications can be further optimized and wanted to keep the patient, but the patient wanted to be discharged. Cardiology added diltiazem to the medication regimen. I saw the patient on the morning of 03/26. He was doing well felt ready to be discharged. He did not have any complaints this morning. Patient is discharged in stable condition. Surgical, Invasive or Diagnostic Procedures Done During Admission: laparoscopic cholecystectomy Consultations During Admission: Cardiology and General Surgery Dear Dr. Braden MD, Denis is advised to follow up with you within 1-2 weeks. Items to follow up in ambulatory setting: Follow-up serial CBCs Follow-up with: Cardiology and General Surgery Scheduled appointments: No future appointments. Your medication list START taking these medications Instructions Last Dose Given Next Dose Due acetaminophen 500 mg tablet Commonly known as: Tylenol Take 2 tablets (1,000 mg) by mouth every 6 (six) hours if needed for mild pain (1-3 pain score). amoxicillin-pot clavulanate 875-125 mg tablet Commonly known as: Augmentin Take 1 tablet by mouth two times daily for 10 days. dilTIAZem CD 180 mg 24 hr capsule Commonly known as: Cardizem CD Start taking on: March 27, 2024 Take 1 capsule (180 mg) by mouth in the morning for 98 doses. Do not start before March 27, 2024. magnesium oxide 400 mg tablet Commonly known as: Mag-Ox Take 1 tablet (400 mg) by mouth in the morning. CHANGE how you take these medications Instructions Last Dose Given Next Dose Due digoxin 125 MCG tablet Commonly known as: Lanoxin What changed: how much to take when to take this Take 1 tablet (125 mcg) by mouth in the morning for 98 doses. CONTINUE taking these medications Instructions Last Dose Given Next Dose Due carvedilol 25 mg tablet Commonly known as: Coreg citalopram 40 mg tablet Commonly known as: CeleXA fenofibrate 145 mg tablet Commonly known as: Tricor lisinopril 10 mg tablet rivaroxaban 20 mg tablet Commonly known as: Xarelto tadalafil 20 mg tablet Commonly known as: Cialis STOP taking these medications potassium chloride ER 10 mEq ER capsule Commonly known as: Micro-K Where to Get Your Medications These medications were sent to [facility] [id number] [place] [id number] [facility] [address] [facility] [id number] acetaminophen 500 mg tablet amoxicillin-pot clavulanate 875-125 mg tablet digoxin 125 MCG tablet dilTIAZem CD 180 mg 24 hr capsule magnesium oxide 400 mg tablet Denis is allergic to ibuprofen. Disposition: Home or Self Care () Discharge Condition: Stable Code Status: Full Code Diagnostic Results Hematology: Results from last 7 days Lab Units 03/26/24 0908 03/26/24 0643 03/25/24 0748 03/25/24 0559 WBC AUTO 10*3/uL -- 19.89* -- 14.90* HEMOGLOBIN g/dL -- 13.0 -- 12.5* HEMATOCRIT % -- 40.3 -- 39.1 MCV fL -- 100.8* -- 101.0* PLATELETS AUTO 10*3/uL 298 266 (more content not included)... [facility] 03-26-2024 Note Discussed with doug freitas RN and pt at bedside on whether he would like [facility] for his drains. Pt declined needing it citing that he feels comfortable taking care of it himself and also cited that he has support from his son whom he lives w/ and his girlfriend who has worked in nursing homes before. Pt will discharge home today with no further needs. [facility] 03-26-2024 Note ------ Attestation signed by Fer Campos MD at 03/27/2024 12:31 PM By using the attestations below, the signing clinician agrees that I have read and verify that the documentation has been personally reviewed by me and ensure that the documentation accurately reflects the encounter. GC: I personally saw this patient on the day of the encounter, performed the lin portion(s) of the service and participated in the management and confirm the resident's documentation. Please note there may be an additional personal documentation from me. ------ Cardiology Progress Note Subjective Subjective: Patient is feeling better this morning. He had surgery yesterday. He wanted to go home. Heart rate has been between 90s to 110s at rest. Patient had no shortness of breath or chest pain. Objective Current Facility-Administered Medications: acetaminophen (Tylenol) tablet 1,000 mg, 1,000 mg, oral, q6h PRN, Oswald Ni MD, 1,000 mg at 03/26/24 1021 bisacodyl (Dulcolax) suppository 10 mg, 10 mg, rectal, Daily PRN, Luca Chen MD carvedilol (Coreg) tablet 25 mg, 25 mg, oral, BID with meals, Luca Chen MD, 25 mg at 03/26/24 0850 cefTRIAXone (Rocephin) IVPB 2 g in NS 50 mL (Mini-Bag Plus), 2 g, intravenous, q24h, Oswald Ni MD, Last Rate: 100 mL/hr at 03/26/24 1021, 2 g at 03/26/24 1021 citalopram (CeleXA) tablet 40 mg, 40 mg, oral, Daily, Luca Chen MD, 40 mg at 03/26/24 1021 digoxin (Lanoxin) tablet 125 mcg, 125 mcg, oral, Daily, Luca Chen MD, 125 mcg at 03/26/24 1021 dilTIAZem CD (Cardizem CD) 24 hr capsule 180 mg, 180 mg, oral, Daily, Brenna Kumar MD, 180 mg at 03/26/24 1033 lisinopril tablet 10 mg, 10 mg, oral, Daily, Luca Chen MD, 10 mg at 03/26/24 1021 magnesium oxide (Mag-Ox) tablet 400 mg, 400 mg, oral, q8h, Oswald Ni MD, 400 mg at 03/26/24 0850 melatonin tablet 5 mg, 5 mg, oral, Nightly PRN, Luca Chen MD, 5 mg at 03/25/24 2345 metroNIDAZOLE in NaCl (iso-os) (Flagyl) IVPB 500 mg, 500 mg, intravenous, q12h MELISSA, Chung Perkins MD, Stopped at 03/26/24 0010 morphine injection 2 mg, 2 mg, intravenous, q6h PRN, Luca Chen MD, 2 mg at 03/26/24 0520 ondansetron ODT (Zofran-ODT) disintegrating tablet 4 mg, 4 mg, oral, q8h PRN OR ondansetron HCl (PF) (Zofran) injection 4 mg, 4 mg, intravenous, q6h PRN, Luca Chen MD, 4 mg at 03/25/24 1724 phytonadione (Vitamin K) 0.5 mg in sodium chloride 0.9 % 50 mL IVPB, 0.5 mg, intravenous, Once, Tony England MD rivaroxaban (Xarelto) tablet 20 mg, 20 mg, oral, Daily with evening meal, Tony England MD Objective: Patient Vitals for the past 24 hrs: BP Temp Temp src Pulse Resp SpO2 Weight 03/26/24 0711 (!) 131/97 36.5 ???C (97.7 ???F) Temporal 109 18 93 % -- 03/26/24 0457 -- -- -- -- -- -- 117 kg (257 lb) 03/25/24 2347 (!) 137/99 -- -- (!) 131 16 92 % -- 03/25/24 2104 138/88 36.8 ???C (98.2 ???F) Temporal (!) 115 18 94 % -- 03/25/24 1558 123/89 36.4 ???C (97.5 ???F) Temporal (!) 133 21 (!) 87 % -- 03/25/24 1327 136/82 36.3 ???C (97.3 ???F) Temporal 99 19 93 % -- 03/25/24 1300 135/89 -- -- 110 19 94 % -- 03/25/24 1245 129/89 -- -- 108 20 94 % -- 03/25/24 1230 137/88 36.2 ???C (97.2 ???F) Temporal 92 18 94 % -- 03/25/24 1215 121/86 -- -- (!) 114 19 94 % -- 03/25/24 1200 (!) 140/93 -- -- (!) 112 19 95 % -- 03/25/24 1145 (!) 150/104 -- -- 108 19 94 % -- 03/25/24 1130 (!) 144/99 36 ???C (96.8 ???F) Temporal 107 14 97 % -- Physical Examination: GENERAL: AOx3, in no acute distress. HEAD: Atraumatic, normocephalic. EYES: MICHELINE, EOMI. NECK: No JVD present. CARDIAC: Irregular. No murmur, rubs, or gallops. RESPIRATORY: CTAB, no increased effort of breathing. ABDOMEN: Abdominal drain present EXTREMITIES: No lower extremity edema, peripheral pulses are 2+ bilaterally. NEURO: No focal deficits Relevant Lab Results Encounter Date: 03/23/24 Electrocardiogram, 12-lead Result Value Ventricular Rate 92 QRS DURATION 84 QT Interval 362 QTC CALCULATION(BAZETT) 447 R-[place] 65 T Wave [place] 65 Impression Atrial fibrillation Nonspecific T wave abnormality Abnormal ECG No previous ECGs available Confirmed by Fer Campos ([id number]) on 03/24/2024 12:30:27 PM Lab Results Component Value Date TROPONINI 0.01 03/25/2024 Complete Echo (TTE) w/wo Imaging Agent, Strain, 3D, Bubble Study Result Date: 03/24/2024 1 1 [facility] Heart Station [address] [place] [address] [phone] (fax) Echocardiogram-[facility] Name: DENIS SAHU Study Date: 03/24/2024 02:38 PM B/P: 118 mmHg/80 mmHg HR: Date of : 1965 Location: [facility] Height: 70 in. Age: 58 year(s) Patient Room: 3140 Weight: 255 lb. Gender: Male Patient Status: InPt BSA: 2.31 m2 Indication: Atrial Fibrillation Examination: Echocardiogra (more content not included)... [facility] 03-26-2024 Note ------ Attestation signed by Luca Chen MD at 03/26/2024 7:28 PM GC: I saw this patient. I personally performed the critical/lin portions that determines the level of service. I was directly involved in the management and treatment plan of the patient. I reviewed resident Oswald Ni MD 's note and agree with the documentation ------ [facility] General Surgery DAILY PROGRESS NOTE Subjective Underwent laparoscopic subtotal cholecystectomy with drain placement x2 on 03/25. He is feeling much better today. Denies nausea, vomiting, fevers, and chills. WBC 19 and Hgb 13 Objective Vitals: Vitals: 03/26/24 0711 BP: (!) 131/97 Pulse: 109 Resp: 18 Temp: 36.5 ???C (97.7 ???F) SpO2: 93% I/O last 3 completed shifts: In: 2857.2 (24.5 mL/kg) [P.O.:660; I.V.:1887.2 (16.2 mL/kg); IV Piggyback:310] Out: 640 (5.5 mL/kg) [Urine:100 (0 mL/kg/hr); Drains:510; Blood:30] Weight: 116.6 kg I/O this shift: In: - Out: 70 [Drains:70] Physical Exam Physical Exam Constitutional: General: He is not in acute distress. Appearance: Normal appearance. HENT: Head: Normocephalic and atraumatic. Nose: No congestion. Eyes: General: Right eye: No discharge. Left eye: No discharge. Cardiovascular: Rate and Rhythm: Normal rate and regular rhythm. Heart sounds: No murmur heard. Pulmonary: Effort: No respiratory distress. Abdominal: General: There is no distension. Palpations: There is no mass. Tenderness: There is no abdominal tenderness. There is no guarding or rebound. Comments: 2 Right sided abdominal drains with serosanguinous output Neurological: Mental Status: He is alert. Labs: Results from last 7 days Lab Units 03/26/24 0908 03/26/24 0643 03/25/24 0559 03/24/24 0004 WBC AUTO 10*3/uL -- 19.89* 14.90* 17.06* HEMOGLOBIN g/dL -- 13.0 12.5* 13.8 HEMATOCRIT % -- 40.3 39.1 42.6 PLATELETS AUTO 10*3/uL 298 266 235 300 Results from last 7 days Lab Units 03/26/24 0643 03/25/24 0559 03/24/24 0004 SODIUM mmol/L 135* 136 136 POTASSIUM mmol/L 4.4 4.1 4.0 CO2 mmol/L 28 28 23 BUN mg/dL 13 13 17 CREATININE mg/dL 0.90 0.92 1.02 Results from last 7 days Lab Units 03/26/24 0643 03/25/24 0748 03/24/24 1508 03/24/24 0004 INR 1.34* 1.28* 1.37* 1.28* Medications: carvedilol, 25 mg, oral, BID with meals cefTRIAXone, 2 g, intravenous, q24h citalopram, 40 mg, oral, Daily digoxin, 125 mcg, oral, Daily dilTIAZem CD, 180 mg, oral, Daily lisinopril, 10 mg, oral, Daily magnesium oxide, 400 mg, oral, q8h metroNIDAZOLE, 500 mg, intravenous, q12h MELISSA phytonadione, 0.5 mg, intravenous, Once rivaroxaban, 20 mg, oral, Daily with evening meal Imaging: Complete Echo (TTE) w/wo Imaging Agent, Strain, 3D, Bubble Study 1 [facility] Heart Station [address] [place] [address] [phone] (fax) Echocardiogram-[facility] Name: DENIS SAHU Study Date: 03/24/2024 02:38 PM B/P: 118 mmHg/80 mmHg HR: Date of : 1965 Location: [facility] Height: 70 in. Age: 58 year(s) Patient Room: 3140 Weight: 255 lb. Gender: Male Patient Status: InPt BSA: 2.31 m2 Indication: Atrial Fibrillation Examination: Echocardiogram (Complete) Image Quality: Technically Difficult study Patient Consent: Procedure explained to patient Conclusions Left Ventricle: The left ventricle is normal size. Global left ventricular systolic function is difficult to assess due to rhythm but appears preserved. EF range is estimated at 50 % -55 %. Left ventricular wall thickness is normal. No regional wall motion abnormality. Right Ventricle: The right ventricle is normal in size. Normal right ventricular systolic function. Doppler studies suggest normal right sided pressures. Left Atrium: The left atrium is normal in size. Measurements Left Ventricle Label Value Normal Value LVOT VTI 13.5 cm (18cm - 22cm) LVOT PGmax 3 mmHg LVDd, 2D 5.83 cm (4.2cm - 5.9cm) LVDs, 2D 4.39 cm (2.1cm - 4cm) IVSd, 2D 0.96 cm (0.6cm - 1.1cm) LVPWd, 2D 0.88 cm (0.6cm - 1cm) LV Mass, 2D ASE 211.15 g LV Mass Index, 2D ASE 91.4 g/m?? (50g/m?? - 102.4g/m??) RWT, MM 0.3 (0 - 0.42) LVSVI, 2D 35.5 ml/m2 LVOT PGmean 1 mmHg Right Ventricle Label Value Normal Value RVDd, 2D 3.48 cm (1.9cm - 3.8cm) TAPSE 2.2 cm Left Atrium Label Value Normal Value LADs, 2D 4.4 cm (3cm - 4cm) Aortic Valve Label Value Normal Value AV DVI 0.74 AV VTI 18.8 cm Mitral Valve Label Value Normal Value MV E Vmax 0.98 m/s Tricuspid Valve Label Value Normal Value RA Pressure 15 mmHg RVSP 28 mmHg TR Vmax 1.8 m/s Aorta Label Value Normal Value AoAsc 3.2 cm AoRoot, 2D 2.7 cm (1.4cm - 3.8cm) Great Vessels Label Value Normal Value IVC 2.4 cm (1.2cm - 2.3cm) Valvular Assessment LVOT 0.7 - 1.1 m/sec Aortic Valve 1.0 - 1.7 m/sec (more content not included)... [facility] 03-25-2024 Note Hospital Medicine Daily Progress Note - 03/25/2024 12:04 PM; Room: OR/- Admission: 03/23/2024 7:37 PM; Length of stay: 2 days THE HOSPITALIST TEAM PREFERS TO USE [employer] FOR COMMUNICATION 7AM-7PM. IF I DO NOT RESPOND WITHIN 15 MINUTES, PLEASE PAGE ME/CALL THROUGH THE CHEMICAL TEST ENGINEER. FROM 7PM-7AM, PLEASE PAGE [phone](COVR) Code Status: Full Code Barriers to Discharge: Stabilization following surgery Expected Discharge Date: TBD Discharge Destination: TBD Overview Patient is seen for evaluation and management of afib with RVR and acute cholecystitis. Subjective Patient seen and examined in the morning. He was about to go down to surgery for acute cholecystitis. He told me that he had some chest tightness and that he had a panic attack earlier during the night. He stated that the chest tightness started with the panic attack, but has been improving. Troponin was checked and was 0.03. Physical Exam Visit Vitals BP (!) 150/104 Pulse 108 Temp 36 ???C (96.8 ???F) (Temporal) Resp 19 Intake/Output Summary (Last 24 hours) at 03/25/2024 1204 Last data filed at 03/25/2024 1135 Gross per 24 hour Intake 2243 ml Output 130 ml Net 2113 ml Physical Exam Vitals reviewed. Constitutional: General: He is not in acute distress. Appearance: He is not ill-appearing or toxic-appearing. HENT: Head: Normocephalic and atraumatic. Mouth/Throat: Mouth: Mucous membranes are moist. Eyes: General: No scleral icterus. Extraocular Movements: Extraocular movements intact. Pupils: Pupils are equal, round, and reactive to light. Cardiovascular: Heart sounds: No murmur heard. No friction rub. Pulmonary: Effort: Pulmonary effort is normal. No respiratory distress. Breath sounds: No stridor. Abdominal: General: There is no distension. Palpations: There is no mass. Musculoskeletal: Right lower leg: No edema. Left lower leg: No edema. Skin: Findings: No rash. Neurological: Mental Status: He is alert. Cranial Nerves: No cranial nerve deficit. Psychiatric: Mood and Affect: Mood normal. Behavior: Behavior normal. Thought Content: Thought content normal. Judgment: Judgment normal. Estimated body mass index is 37.01 kg/m??? as calculated from the following: Height as of this encounter: 1.778 m (5' 10 ). Weight as of this encounter: 117 kg (257 lb 15 oz). Active Inpatient Problems Principal Problem: Acute cholecystitis Active Problems: Atrial fibrillation with RVR ([facility]/HCC) Hypomagnesemia Assessment and Plan Afib with RVR - ECG with atrial fibrillation, HR in 130s occasionally - Rate control with coreg 25mg BID. Also on digoxin - Anticoagulate with heparin drip - TTE 50-55% without regional wall motion abnormality - Heart rate is in 110s maximum on 03/25 Acute cholecystitis Leukocytosis - RUQ with leukocytosis of 17k - Underwent laparoscopic cholecystectomy with GS this morning. GS found bilious ascites throughout concerning for possible perforation, large stone removed. Patient tolerated procedure well - Continue Abx with rocephin and flagyl - Diet per surgery Hypomagnesemia - 1.7 upon presentation - Replacements ordered with IV mag sulfate 2g Obesity class II Suspected SALLY - BMI 36.67 - patient needed nighttime O2 - Body habitus highly characteristic and will need outpatient evaluation for sleep apnea Essential hypertension - Blood pressure mildly elevated today - Continue coreg 25mg BID - Will monitor and if elevated again, will start another medication Coagulopathy - INR elevated 1.2 - 1.3 - 1x dose of vitamin K - Daily INR ordered VTE Prophylaxis: Per General surgery recommendations Scheduled Meds [Sep] carvedilol, 25 mg, oral, BID with meals [START ON 03/26/2024] cefTRIAXone, 2 g, intravenous, q24h [SEP Hold] citalopram, 40 mg, oral, Daily [SEP Hold] digoxin, 125 mcg, oral, Daily fentaNYL, 50 mcg, intravenous, Once [SEP Hold] lisinopril, 10 mg, oral, Daily metroNIDAZOLE, 500 mg, intravenous, q12h Oxygen Therapy, , inhalation, Continuous [Sep] pantoprazole, 40 mg, oral, Daily [Sep] phytonadione, 0.5 mg, intravenous, Once [Sep] potassium chloride CR, 10 mEq, oral, BID Pertinent Investigations Hematology: Results from last 7 days Lab Units 03/25/24 0748 03/25/24 0559 03/24/24 1508 03/24/24 0004 WBC AUTO 10*3/uL -- 14.90* -- 17.06* HEMOGLOBIN g/dL -- 12.5* -- 13.8 HEMATOCRIT % -- 39.1 -- 42.6 MCV fL -- 101.0* -- 99.8* PLATELETS AUTO 10*3/uL -- 235 -- 300 INR 1.28* -- 1.37* 1.28* Chemistry: Results from last 7 days Lab Units 03/25/24 0559 03/24/24 0004 SODIUM mmol/L 136 136 POTASSIUM mmol/L 4.1 4.0 CHLORIDE mmol/L 103 105 CO2 mmol/L 28 23 BUN mg/dL 13 17 CREATININE mg/dL 0.92 1.02 GLUCOSE mg/dL 120* 108* MAGNESIUM mg/dL 1.6* 1.7* CALCIUM mg/dL 8.5* 8.7 Results from last 7 days Lab Units 03/25/24 0559 03/24/24 0004 AST U/L 15 15 ALT U/L 10 (more content not included)... [facility] 03-25-2024 Note Patient: Denis esteban Procedure Summary Date: 03/25/24 Room / Location: [facility] OPERATING ROOM 13 / [facility] Operating Room Anesthesia Start: 912 Anesthesia Stop: 1134 Procedure: SUB-TOTAL CHOLECYSTECTOMY, LAPAROSCOPIC (Abdomen) Diagnosis: Acute cholecystitis (Acute cholecystitis [K81.0]) Surgeons: Luca Chen MD Responsible Provider: Daren Prado MD Anesthesia Type: general ASA Status: 3 Anesthesia Type: general Vitals Value Taken Time BP 144/99 03/25/24 1132 Temp 36 ???C (96.8 ???F) 03/25/24 1130 Pulse 108 03/25/24 1145 Resp 19 03/25/24 1145 SpO2 94 % 03/25/24 1145 Vitals shown include unvalidated device data. Anesthesia Post Evaluation Patient location during evaluation: PACU Patient participation: complete - patient participated Level of consciousness: awake Pain score: 2 Pain management: adequate Airway patency: patent Cardiovascular status: stable Respiratory status: acceptable Hydration status: balanced Patient is hemodynamically stable and is able to be discharged from PACU per anesthesia protocol. No notable events documented. [facility] 03-25-2024 Note Airway Date/Time: 03/25/2024 9:23 AM Urgency: elective General Information and Staff Patient location during procedure: OR Anesthesiologist: Daren Prado MD Performed: resident/FLAME CHANNELER/CAA Indications and Patient Condition Indications for airway management: anesthesia Spontaneous Ventilation: absent Sedation level: deep Preoxygenated: yes Mask difficulty assessment: 0 - not attempted Final Airway Details Final airway type: endotracheal airway Successful airway: ETT Cuffed: yes Successful intubation technique: video laryngoscopy Facilitating devices/methods: intubating stylet Endotracheal tube insertion site: oral Blade: Patel Blade size: #4 ETT size (mm): 7.5 Cormack-Lehane Classification: grade I - full view of glottis Placement verified by: chest auscultation and capnometry Measured from: lips ETT to lips (cm): 22 Number of attempts at approach: 1 Number of other approaches attempted: 0 [facility] 03-25-2024 Note Visit Vitals BP (!) 122/98 Pulse (!) 118 Temp 36.8 ???C (98.3 ???F) (Temporal) Resp 22 Irregularly rate Non labored breathing Soft, mild tenderness to palpation in the right upper quadrant 58 year old man with multiple comorbidities with acute cholecystitis Plan for OR today Risks and benefits discussed with the patient [facility] 03-25-2024 Note Patient: Denis esteban Procedure Information Date/Time: 03/25/24 1030 Procedure: CHOLECYSTECTOMY, LAPAROSCOPIC (Abdomen) Location: [facility] OPERATING ROOM 13 / [facility] Operating Room Surgeons: Luca Chen MD Relevant Problems Cardio (+) Atrial fibrillation with RVR (CMS/HCC) Clinical information reviewed: Tobacco Allergies Meds Problems Med Hx Surg Hx Fam Hx Soc Hx Physical Exam Airway Mallampati: III TM distance: >3 FB Neck ROM: limited Cardiovascular Dental - normal exam Comments: Multiple missing teeth upper and lower , broken teeth , Poor hygiene. Pulmonary Breath sounds clear to auscultation Abdominal (+) obese Anesthesia Plan ASA 4 general Patient was not previously instructed to abstain from smoking on day of procedure. intravenous induction Postoperative administration of opioids is intended. Anesthetic plan and risks discussed with patient. Use of blood products discussed with who consented to blood products. Plan discussed with CAA and resident. Additional Equipment Requests [facility] 03-24-2024 Note Hospital Medicine Daily Progress Note - 03/24/2024 6:01 PM; Room: [facility] Admission: 03/23/2024 7:37 PM; Length of stay: 1 days THE HOSPITALIST TEAM PREFERS TO USE [employer] FOR COMMUNICATION 7AM-7PM. IF I DO NOT RESPOND WITHIN 15 MINUTES, PLEASE PAGE ME/CALL THROUGH THE CHEMICAL TEST ENGINEER. FROM 7PM-7AM, PLEASE PAGE [phone](COVR) Code Status: Full Code Barriers to Discharge: Acute cholecystitis Discharge Destination: home Overview Patient is seen for evaluation and management of afib with RVR and acute cholecystitis. Subjective Patient seen and examined in the morning. He was sleeping, but awakened to voice. He was feeling okay this morning. He did not have any chest pain. Physical Exam Visit Vitals BP 131/86 Pulse (!) 130 Temp 36.6 ???C (97.9 ???F) (Temporal) Resp 13 Intake/Output Summary (Last 24 hours) at 03/24/2024 1801 Last data filed at 03/24/2024 1400 Gross per 24 hour Intake 575 ml Output -- Net 575 ml Physical Exam Vitals reviewed. Constitutional: General: He is not in acute distress. Appearance: He is not ill-appearing or toxic-appearing. HENT: Head: Normocephalic and atraumatic. Mouth/Throat: Mouth: Mucous membranes are moist. Eyes: General: No scleral icterus. Extraocular Movements: Extraocular movements intact. Pupils: Pupils are equal, round, and reactive to light. Cardiovascular: Rate and Rhythm: Normal rate. Rhythm irregular. Pulmonary: Effort: Pulmonary effort is normal. No respiratory distress. Breath sounds: No stridor. Abdominal: General: There is no distension. Palpations: Abdomen is soft. There is no mass. Tenderness: There is abdominal tenderness (RUQ). There is no guarding. Skin: Findings: No rash. Neurological: Mental Status: He is alert. Cranial Nerves: No cranial nerve deficit. Psychiatric: Mood and Affect: Mood normal. Behavior: Behavior normal. Thought Content: Thought content normal. Judgment: Judgment normal. Estimated body mass index is 36.67 kg/m??? as calculated from the following: Height as of this encounter: 1.778 m (5' 10 ). Weight as of this encounter: 116 kg (255 lb 9.6 oz). Active Inpatient Problems Principal Problem: Acute cholecystitis Active Problems: Atrial fibrillation with RVR (CMS/HCC) Hypomagnesemia Assessment and Plan Afib with RVR - ECG with atrial fibrillation, HR in 130s occasionally - Rate control with coreg 25mg BID. Also on digoxin - Anticoagulate with heparin drip - TTE 50-55% without regional wall motion abnormality Acute cholecystitis Leukocytosis - RUQ with leukocytosis of 17k - Surgery following and planning cholecystectomy prior to discharge - On Abx with rocephin and flagyl - Keep NPO Hypomagnesemia - 1.7 upon presentation - Replacements ordered with IV mag sulfate 2g Obesity class II Suspected SALLY - BMI 36.67 - patient needed nighttime O2 - Body habitus highly characteristic and will need outpatient evaluation for sleep apnea Essential hypertension - Continue coreg 25mg BID - Blood pressure is largely at goal Coagulopathy - INR elevated 1.2 - 1.3 - 1x dose of vitamin K - Daily INR ordered VTE Prophylaxis: IV heparin Scheduled Meds carvedilol, 25 mg, oral, BID with meals cefTRIAXone, 2 g, intravenous, q24h citalopram, 40 mg, oral, Daily digoxin, 125 mcg, oral, Daily lisinopril, 10 mg, oral, Daily metroNIDAZOLE, 500 mg, intravenous, q12h pantoprazole, 40 mg, oral, Daily potassium chloride CR, 10 mEq, oral, BID heparin, 0-28 Units/kg/hr, Last Rate: 15 Units/kg/hr (03/24/24 1451) Pertinent Investigations Hematology: Results from last 7 days Lab Units 03/24/24 1508 03/24/24 0004 WBC AUTO 10*3/uL -- 17.06* HEMOGLOBIN g/dL -- 13.8 HEMATOCRIT % -- 42.6 MCV fL -- 99.8* PLATELETS AUTO 10*3/uL -- 300 INR 1.37* 1.28* Chemistry: Results from last 7 days Lab Units 03/24/24 0004 SODIUM mmol/L 136 POTASSIUM mmol/L 4.0 CHLORIDE mmol/L 105 CO2 mmol/L 23 BUN mg/dL 17 CREATININE mg/dL 1.02 GLUCOSE mg/dL 108* MAGNESIUM mg/dL 1.7* CALCIUM mg/dL 8.7 Results from last 7 days Lab Units 03/24/24 0004 AST U/L 15 ALT U/L 12 ALK PHOS U/L 54 BILIRUBIN TOTAL mg/dL 1.0 BILIRUBIN DIRECT mg/dL 0.3* Historical Values: (Includes values prior to this admission) No results found for: PREALBUMIN , TSH , T3FREE , FREET4 , CORTISOL , FEV1 , NHH7DWY , DLCO , RVSP , HDL , LDL No results found for: [id number] , IRON , TIBC , C3 , C4 , ADRY , CANCA , ASO , PSA , CEA , CA125 , CA199 , AFP , CA153 Imaging Complete Echo (TTE) w/wo Imaging Agent, Strain, 3D, Bubble Study 1 [facility] Heart Station [address] [place] [address] (fax) Echocardiogram-[facility] Name: DENIS SAHU Study Date: 03/24/2024 02:38 PM B/P: 118 mmHg/80 mmHg HR: Date of : 1965 Location: [facility] Height: 70 i (more content not included)... [facility] 03-24-2024 Note ------ Attestation signed by Luca Chen MD at 03/25/2024 9:16 AM GC: I saw this patient. I personally performed the critical/lin portions that determines the level of service. I was directly involved in the management and treatment plan of the patient. I reviewed resident Rigoberto Rodrigez MD 's note and agree with the documentation ------ [facility] General Surgery DAILY PROGRESS NOTE Subjective Patient resting in bed, pain somewhat improved. AFVSS. Leukocytosis present. Objective Vitals: Vitals: 03/24/24 0835 BP: 118/80 Pulse: 99 Resp: 18 Temp: 36.6 ???C (97.8 ???F) SpO2: 98% I/O last 3 completed shifts: In: 225 (1.9 mL/kg) [P.O.:75; IV Piggyback:150] Out: - (0 mL/kg) Weight: 115.9 kg I/O this shift: In: 350 [I.V.:200; IV Piggyback:150] Out: - Physical Exam Physical Exam Constitutional: General: He is not in acute distress. HENT: Head: Normocephalic and atraumatic. Nose: No congestion. Eyes: General: Right eye: No discharge. Left eye: No discharge. Cardiovascular: Rate and Rhythm: Normal rate and regular rhythm. Heart sounds: No murmur heard. Pulmonary: Effort: No respiratory distress. Abdominal: General: There is no distension. Palpations: There is no mass. Tenderness: There is abdominal tenderness. There is no guarding or rebound. Labs: Results from last 7 days Lab Units 03/24/24 0004 WBC AUTO 10*3/uL 17.06* HEMOGLOBIN g/dL 13.8 HEMATOCRIT % 42.6 PLATELETS AUTO 10*3/uL 300 Results from last 7 days Lab Units 03/24/24 0004 SODIUM mmol/L 136 POTASSIUM mmol/L 4.0 CO2 mmol/L 23 BUN mg/dL 17 CREATININE mg/dL 1.02 Results from last 7 days Lab Units 03/24/24 0004 INR 1.28* Medications: carvedilol, 25 mg, oral, BID with meals cefTRIAXone, 2 g, intravenous, q24h citalopram, 40 mg, oral, Daily digoxin, 125 mcg, oral, Daily lisinopril, 10 mg, oral, Daily metroNIDAZOLE, 500 mg, intravenous, q12h pantoprazole, 40 mg, oral, Daily potassium chloride CR, 10 mEq, oral, BID heparin, 0-28 Units/kg/hr, Last Rate: 15 Units/kg/hr (03/24/24 1451) Imaging: Electrocardiogram, 12-lead Atrial fibrillation Nonspecific T wave abnormality Abnormal ECG No previous ECGs available Confirmed by Fer Campos ([id number]) on 03/24/2024 12:30:[address] abdomen pelvis w IV contrast Narrative: CT ABDOMEN PELVIS W IV CONTRAST 03/24/2024 10:41 AM SIGN AND SYMPTOMS: Right upper quadrant abdominal pain TECHNIQUE: CT abdomen and pelvis with intravenous contrast. Multiplanar reformats were performed. Appropriate CT dose lowering techniques were utilized. COMPARISON: Abdomen ultrasound performed same day FINDINGS: Lung bases: Right greater than left basilar atelectasis. Bony structures: Advanced degenerative disease of the lumbar spine with prior surgery. No acute bony pathology. ABDOMEN: Cholelithiasis with surrounding inflammation suggesting acute cholecystitis. There is enhancement of the gallbladder fossa consistent with reactive parenchymal hyperemia. There is mild heterogeneity of hepatic parenchyma without any focal lesion demonstrated otherwise. The pancreas, spleen and adrenal glands are within normal limits. Kidneys perfuse symmetrically. No hydronephrosis, solid cortical lesion or inflammatory focus. Small amount of fluid adjacent to proximal duodenum likely associated with adjacent gallbladder inflammation. Stomach is decompressed without evidence of disease. Nonobstructive bowel gas pattern. No free air. Small appendix appears normal. No pericecal inflammation. No evidence of diverticulitis or small bowel inflammatory focus. PELVIS: Urinary bladder wall is thickened and there is am 1.8 cm right posterior lateral bladder wall diverticulum. Prostate gland measures 4.6 cm without gross enlargement. Atherosclerotic disease of the abdominal aorta. No retroperitoneal hematoma or abnormally enlarged retroperitoneal lymph nodes. Impression: *Cholelithiasis, pericholecystic fluid and reactive hyperemia of the gallbladder fossa compatible with acute cholecystitis. *Urinary bladder wall thickening and diverticulum suggesting chronic bladder outlet obstruction. Electronically signed: Laureano Rojas. US abdomen limited Narrative: ULTRASOUND ABDOMEN LIMITED HISTORY: Cholecystitis, shoulder pain COMPARISON: None FINDINGS: Visualized portions of the pancreatic body are unremarkable. Remaining portions of the pancreas are obscured by overlying bowel gas. Cholelithiasis. Unable to accurately determine if there is gallbladder wall thickening or simply prominent pericholecystic fat. The gallbladder is nondistended. Common bile duct measures approximately 0.5 cm. Liver is not well evaluated on this study. Impression: *Study limited due to difficulty a (more content not included)... [facility] 03-24-2024 Note Hospital Medicine Daily Progress Note - 03/24/2024 11:14 AM; Room: [address] [place] [address] Admission: 03/23/2024 7:37 PM; Length of stay: 1 days THE HOSPITALIST TEAM PREFERS TO USE [employer] FOR COMMUNICATION 7AM-7PM. IF I DO NOT RESPOND WITHIN 15 MINUTES, PLEASE PAGE ME/CALL THROUGH THE CHEMICAL TEST ENGINEER. FROM 7PM-7AM, PLEASE PAGE [phone](COVR) Code Status: Full Code Barriers to Discharge: N/A Expected Discharge Date: N/A Discharge Destination: N/A Overview Patient is seen for evaluation and management of atrial fibrillation with rapid ventricular response and acute cholecystitis. Subjective Patient was seen and examined this morning. He denies any acute events overnight other than constipation and dry-heaving that he says resolved this morning. Vitals are stable this morning other than tachycardic heart rate of 100. He states that he is not feeling great and is still experiencing chest pain. He describes the chest pain as band-like across his chest which radiates to his left arm and back. He rates the pain as a 3/10 (with 1 being the lowest). He also is experiencing worsening chest palpitations. He expresses nausea without vomiting today. Physical Exam Visit Vitals BP 118/80 (BP Location: Left arm, Patient Position: Sitting) Pulse 99 Temp 36.6 ???C (97.8 ???F) (Temporal) Resp 18 Intake/Output Summary (Last 24 hours) at 03/24/2024 1114 Last data filed at 03/24/2024 0101 Gross per 24 hour Intake 225 ml Output -- Net 225 ml Physical Exam Constitutional: Appearance: Normal appearance. He is obese. HENT: Head: Normocephalic. Cardiovascular: Rate and Rhythm: Tachycardia present. Rhythm irregular. Pulmonary: Breath sounds: Rales present. Abdominal: Tenderness: There is abdominal tenderness. Neurological: Mental Status: He is alert. Estimated body mass index is 36.67 kg/m??? as calculated from the following: Height as of this encounter: 1.778 m (5' 10 ). Weight as of this encounter: 116 kg (255 lb 9.6 oz). Active Inpatient Problems Principal Problem: Acute cholecystitis Active Problems: Atrial fibrillation with RVR (CMS/HCC) Hypomagnesemia Assessment and Plan Atrial Fibrillation with Rapid Ventricular Response - EKG shows atrial fibrillation with nonspecific T wave abnormalities - Heart rate on 03/23 was 131 bpm - Resume home dose of carvedilol 25 mg BID and digoxin 125 mcg daily. Can use diltiazem if needed to manage RVR. - hold xarelto and continue heparin drip to prevent paradoxical emboli in case patient needs the cholecystectomy - follow up on echo results to assess left ventricular function or valvular abnormalities - Continue monitoring with telemetry to make sure heart rate is controlled 2. Acute Cholecystitis - Patient has positive Costa's sign, elevated WBC's of 17.06, abdominal pain radiating to the left arm and shoulder, and mildly elevated direct bilirubin - Continue metronidazole and ceftriaxone to cover anaerobic bacteria - IV fluids to maintain hydration and electrolyte balance - Keep patient NPO to reduce stimulation of the gallbladder - Surgery is following 3. Hypomagnesemia - Monitor magnesium and potassium levels regularly, as the levels should be above 2 and 4, respectively. - Patients most recent magnesium level is 1.7. Administer IV magnesium sulfate in D5W IVPB 1 g twice to get levels above 2. 4. Suspected Obstructive Sleep Apnea - We are concerned for SALLY due to increased neck circumference, obesity, and need for supplemental oxygen. - Patient is currently on Nasal cannula 2L oxygen with SpO2 of 98% - Outpatient referral at discharge for sleep study 5. Mild Coagulopathy - INR is mildly elevated at 1.28 - Continue monitoring levels before clearance for cholecystectomy Nutrition Screen: Malnutrition Attestation: No dietitian assessment is available at this time. VTE Prophylaxis: IV heparin Scheduled Meds carvedilol, 25 mg, oral, BID with meals cefTRIAXone, 2 g, intravenous, q24h digoxin, 125 mcg, oral, Daily lisinopril, 10 mg, oral, Daily magnesium sulfate, 1 g, intravenous, q1h metroNIDAZOLE, 500 mg, intravenous, q12h pantoprazole, 40 mg, oral, Daily potassium chloride CR, 10 mEq, oral, BID heparin, 0-28 Units/kg/hr, Last Rate: 15 Units/kg/hr (03/24/24 0102) sodium chloride, 50 mL/hr, Last Rate: 50 mL/hr (03/24/24 0000) Pertinent Investigations Hematology: Results from last 7 days Lab Units 03/24/24 0004 WBC AUTO 10*3/uL 17.06* HEMOGLOBIN g/dL 13.8 HEMATOCRIT % 42.6 MCV fL 99.8* PLATELETS AUTO 10*3/uL 300 INR 1.28* Chemistry: Results from last 7 days Lab Units 03/24/24 0004 SODIUM mmol/L 136 POTASSIUM mmol/L 4.0 CHLORIDE mmol/L 105 CO2 mmol/L 23 BUN mg/dL 17 CREATININE mg/dL 1.02 GLUCOSE mg/dL 108* MAGNESIUM mg/dL 1.7* CALCIUM mg/dL 8.7 Results from last 7 days Lab Units 03/24/24 0004 AST U/L 15 ALT U/L 12 ALK PHOS U/L 54 BILIRUBIN TOTAL mg/dL 1.0 (more content not included)... [facility] 03-24-2024 Note HR jumped up to 170 and was consistently 135. Unable to perform echocardiogram at this time. Will attempt when heart rate is under 120 bpm. [facility] 03-24-2024 Note 03/24/24 0901 Admission Assessment Questions Verify insurance with patient Yes Do you understand medical disease or what brought you into the hospital? Yes Who is your current PCP? Genet Feliciano MD Can I schedule a follow up appointment for you at the time of discharge? Yes (mornings) Do you understand why you are taking your current medications? Yes Are you taking your medications as prescribed? Yes Did patient provide teach back? No Pharmacy Bedside Delivery Status Interested Does the patient have a manager case management assigned to them through their insurance? No Living Arrangement (Current/Prior to Hospitalization) Private residence;Home self care (lives w/son. Stays on bottom floor of 3 story home. Takes 6-7 steps to get in and out) Does the patient have history of HHC or SNF? No Assistive Device Not applicable Patient's goal for discharge home Was patient reminded that goal for discharge is 11am? No Does the patient have transportation at discharge? Yes Type of Residence Private residence Is PT/OT appropriate? No Is PT/OT ordered? No Is SW consult appropriate? No Is SW consult ordered? No Do you understand the benefits of MyChart? Yes Were you able to send link and activate MyChart? Yes [facility] 03-23-2024 Note Hospital Medicine History and Physical 03/23/2024 11:40 PM THE HOSPITALIST TEAM PREFERS TO USE [employer] FOR COMMUNICATION 7AM-7PM. IF I DO NOT RESPOND WITHIN 15 MINUTES, PLEASE PAGE ME/CALL THROUGH THE CHEMICAL TEST ENGINEER. FROM 7PM-7AM, PLEASE PAGE [phone](COVR) Chief Complaint No chief complaint on file. History of Present Illness Denis Sahu is an 58 y.o. male who came from [facility] with past medical history of paroxysmal A-fib, on Xarelto, hypertension and morbid obesity presented to [facility] as a transfer. Patient initially presented to [facility] ER with chest pain and shortness of breath and then while in the ER, his chest pain resolved however he started to have epigastric and right upper quadrant pain. He also had nausea but no vomiting. He also complained of palpitations and was found to be in A-fib with RVR. He reported that he did not take his digoxin and carvedilol for 3 days prior to presentation. On the workup, he was found to have acute cholecystitis and was admitted to the hospital there. General surgery started him on Zosyn and they consulted cardiology for surgical clearance. Helminthology Teacher, Dr. Beltran cleared him for the surgery. Per report, patient is moderate risk for surgical complications. However, surgeon was concerned about short runs of V. tach on telemetry. On EKG findings were consistent with NSVT. They wanted patient to be transferred to the hospital with cardiology service so surgery department at [facility] was reached out and they agreed to accept the patient. Surgical service wanted patient to be admitted to hospitalist because of A-fib. Upon my evaluation, patient denies chest pain or increased shortness of breath. No nausea or vomiting. His abdominal pain is controlled. No fevers or chills. His heart rate is in 110s. Review of System and Physical Exam Temp: [36.9 ???C (98.5 ???F)] 36.9 ???C (98.5 ???F) Heart Rate: [131] 131 Resp: [17] 17 BP: (127)/(87) 127/87 Physical Exam Constitutional: Appearance: Normal appearance. HENT: Head: Normocephalic. Eyes: Conjunctiva/sclera: Conjunctivae normal. Cardiovascular: Rate and Rhythm: Tachycardia present. Rhythm irregular. Heart sounds: Normal heart sounds. No murmur heard. Pulmonary: Effort: Pulmonary effort is normal. No respiratory distress. Breath sounds: No wheezing, rhonchi or rales. Comments: Diminished breath sounds bilaterally. Abdominal: General: Abdomen is flat. Palpations: There is no mass. Tenderness: There is abdominal tenderness (RUQ). Musculoskeletal: General: No swelling. Right lower leg: No edema. Left lower leg: No edema. Skin: Findings: No rash. Neurological: General: No focal deficit present. Mental Status: He is alert and oriented to person, place, and time. Psychiatric: Mood and Affect: Mood normal. Behavior: Behavior normal. Thought Content: Thought content normal. Judgment: Judgment normal. Review of Systems as mentioned in HPI Problem List Patient Active Problem List Diagnosis Date Noted Acute cholecystitis 03/23/2024 Atrial fibrillation with RVR ([facility] 03/23/2024 Hypomagnesemia 03/23/2024 Assessment and Plan A-fib with RVR Acute cholecystitis Hypomagnesemia Hypertension Morbid obesity Paroxysmal A-fib, on Xarelto Marijuana use Plan: Patient is admitted to stepdown telemetry bed. Fall precautions. For A-fib with RVR, we will resume patient's home dose of carvedilol and digoxin. If needed, will use Cardizem prn. Patient denies any history of CHF but he is poor historian. Will order echo and cardiology consult. Will hold Xarelto and start patient on heparin drip in case he will need to have cholecystectomy done. General surgery follows. Rocephin and metronidazole IV for acute cholecystitis Normal saline at 50 mL/h for next 12 hours. Patient will be kept n.p.o. after midnight in case he will need procedure done Protonix 40 mg daily for GI prophylaxis Patient's home medications were resumed EPC cuffs VTE Prophylaxis: IV heparin ----- Focus of this inpatient stay will remain on problems that need acute care setting for care. We will review available studies and will order additional labs, imaging and other studies as appropriate. As needed medicines are ordered as appropriate. VTE Prophylaxis will be ordered as appropriate. Please see above for management plan for individual hospital problems. Home medications are reviewed and will be continued as appropriate. Patient will be continued to be followed during this hospital stay by a member of [facility]. Past Medical History History reviewed. No pertinent past medical history. Past Surgical History Past Surgical History: Procedure Laterality Date HERNIA REPAIR VASECTOMY Right Social History Social History Socioeconomic History Marital status: Not on file Spouse name: Not on file Number of children: Not on file Year (more content not included)... [facility] 01-06-2021 Note HPI Staff 55 year old male referred by Dr. Feliciano on consultation for multiple recurrent skin cysts located on face and neck. Ongoing issue. Comes and goes. Develops often on both the face and neck. Experiences pain, bleeding, burning and drainage. Has trialed mupirocin ointment per Dr. Feliciano. Did not help with symptoms. Not taking anything for pain. Taking Xarelto per Dr. Feliciano. Hx of hypertension. History of Present Illness 55 yo male with h/o atrial fibrillation, on Xarelto, cardiomyopathy, htn, referred for multiple recurrent skin infections on face, patient drains areas intermittently, but they recur, has intermittent drainage, on face and neck; Dr Feliciano prescribed Mupirocin ointment, with no improvement. no h/o skin cancer. Review of Systems ROS - Provider Constitutional: no fever, no sweats, no weight loss. Eyes: no glasses, no blurred vision, no visual loss. ENMT: no dentures, no hoarseness, no swallowing difficulties, no hearing loss, no ear infection(s), no nose bleeds. Cardiovascular: high blood pressure, no chest pain, regular heartbeat, no heart murmur. Respiratory: no shortness of breath, no cough, no asthma, no wheezing. Gastrointestinal: no nausea, no vomiting, no diarrhea, no constipation, no blood in stool, no change in bowel habits, no abdominal pain, no hepatitis. Genitourinary: no kidney stones, no urine infection, no dysuria. Musculoskeletal: no pain, no weakness. Skin: no changing moles, no rash, yes skin lumps. Neurologic: no seizures, no epilepsy, no headache. Psychiatric: no emotional or psychiatric problem. Heme/Lymph: no bleeding problems, no anemia, no blood clots, no transfusions. Allergy/Immunologic: no swollen lymph nodes/glands, no IV drug abuse. Other: Additional ROS info: Except as noted in the above Review of Systems and in the History of Present Illness, all other systems have been reviewed and are negative or noncontributory. Physical Exam HEENT: normal conjunctiva, sclera clear, no scleral icterus, EOM intact, PERRLA, oral mucosa moist without lesions. Neck: trachea midline, no mass, symmetric, no thyromegaly or nodules, no adenopathy Respiratory: lungs CTA, respirations non labored. Cardiovascular: regular rate and rhythm, no murmur, no pedal edema or varicosities. Gastrointestinal: soft, non distended, no tenderness, no masses, no palpable hernias, diastasis recti no, no hepatosplenomegaly; normal bs Lymphatic: no cervical adenopathy, no axillary adenopathy, Musculoskeletal: normal gait, digits and nails without infection, nodes, cyanosis, clubbing. Skin: no rashes, multiple scars face/neck; bilateral areas of superficial abrasion, no palpable cysts, no drainage; some folliculitis, no ulcers, no subcutaneous nodules, induration. Psychiatric/Neuro: oriented to time, place, person, judgement normal, affect appropriate for age, insight intact, no focal deficits. Tests: review of old records completed, Assessment/Plan 1. Folliculitis barbae (L73.8: Other specified follicular disorders) no evidence of cysts, suspect folliculitis; recommend Dermatology evaluation; will refer to [facility]ology for treatment. call with problems/questions. Ordered: [facility] [place] Referral 2. BMI 39.0-39.9,adult (Z68.39: Body mass index [BMI] 39.0-39.9, adult) recommend diet and exercise. Ordered: [facility] [place] Ref[place] Follow-up No qualifying data available Patient Education Exercising to Lose Weight Problem List/Past Medical History Ongoing Abdominal wall hernia Ankle pain Atrial fibrillation BMI 39.0-39.9,adult Cardiomyopathy Chest pain Dyspnea Folliculitis Folliculitis barbae Hemorrhage, gastric Hypertension Hypertriglyceridemia Insomnia Lumbar herniated disc Vitamin D deficiency Historical No qualifying data Procedure/Surgical History History of lumbar fusion, History of tonsillectomy, Inguinal herniorrhaphy, Scrotum and testicle operation. Medications carvedilol 25 mg Tab, 25 mg= 1 tab(s), Oral, BID citalopram 40 mg Tab, 40 mg= 1 tab(s), Oral, Daily digoxin 125 mcg (0.125 mg) Tab, 125 mcg= 1 tab(s), Oral, Daily fenofibrate 145 mg Tab, 145 mg= 1 tab(s), Oral, Daily lisinopril 10 mg Tab, 10 mg= 1 tab(s), Oral, Daily potassium chloride 10 mEq Cap-ER, 10 mEq= 1 cap(s), Oral, BID Tylenol, See Instructions Vitamin D3 1000 intl units oral tablet, 1000 International_Unit= 1 tab(s), Oral, Daily Xarelto 20 mg oral tablet, 20 mg= 1 tab(s), Oral, qPM Allergies No Known Medication Allergies Social History Tobacco Never (less than 100 in lifetime) Tobacco Use:. Never Smokeless Tobacco Use:., 01/01/2021 Family History Aneurysm: Mother. Diabetes mellitus type II: Mother. Heart disease: Father. [facility] Comment on above: Result Comment: Elec tronically Signed By: JUNIOR ÁLVAREZ, James Paige\Date and Time Signed: 01/06/21 07:51 EDT Summary Purpose Family History No Family History Records FoundNo Family History Records FoundNo Family History Records FoundNo Family History Records Found Advance Directives No Advanced Directives Records FoundNo Advanced Directives Records FoundNo Advanced Directives Records FoundNo Advanced Directives Records Found Additional Source Comments (unrecognized sect ion and content) No Status Records FoundNo Status Records FoundNo Status Records FoundNo Status Records Found INFORMATION SOURCE (unrecogn ized section and content) DATE CREATED AUTHOR 01/11/2021 Rudolph Del Valle [facility] DATE CREATED AUTHOR AUTHOR'S ORGANIZ ATION 01/30/2022 Stacie Peacock [facility] DATE CREATED AUTHOR AUTHOR'S ORGANIZ ATION 09/26/2023 [facility] DATE CREATED AUTHOR AUTHOR'S ORGANIZ ATION 04/11/2024 [facility] FOR RECORDS PERTAINING TO PATIENTS WHO ARE OR HAVE BEEN ENROLLED IN A CHEMICAL DEPENDENCY/SUBSTANCEABUSE PROGRAM, SOME INFORMATION MAY BE OMITTED. This clinical summary was aggregated from multiple sources. Caution should be exercised in using it in the provision of clinical care. This summary normalizes information from multiple sources, and as a consequence, information in this document may materially change the coding, format and clinical context of patient data. In addition, data may be omitted in some cases. CLINICAL DECISIONS SHOULD BE BASED ON THE PRIMARY CLINICAL RECORDS. [employer] provides no warranty or guarantee of the accuracy or completeness of information in this document.
--- NOTE | 2024-04-17 15:06 | XR_ITS ---
The [address] [address] Patient Name: ESTEBAN HEATH MRN: [id number] date: 1965 Sex: M Assigned Patient Location: MRI Current Patient Location: Accession/Order Number: [id number] Exam Date: 04/17/2024 15:20 Report Date: 04/20/2024 04:41 At the request of: GENET NOLAN Procedure: XR cervical spine 2-3V EXAMINATION: XR cervical spine 2-3V HISTORY: Cervical spine pain COMPARISON: No relevant comparison available. FINDINGS: BONES: Slight reversal of the normal lordotic curvature. No fracture, spondylolisthesis, bone lesion. Multilevel mild-moderate degenerative facet arthropathy. DISC SPACES: The C6-C7 level is not well seen, but I suspect mild to moderate disc space narrowing. PARASPINOUS: Negative. No paraspinous abnormality is seen. OTHER: Negative. XR/XR cervical spine 2-3V IMPRESSION: 1. Mild degenerative changes of the cervical spine. Electronically authenticated by: JACKI KELLY Date: 04/20/2024 04:41
--- OUTSIDE RECORDS SUMMARY | 2024-04-17 15:25 | XMS_ITS | CCD ---
Author Organization [place] [facility] Care Team Providers Care Owner Oral Surgeon Name Role Phone BRADEN, DR DE LEÓN [...] Unavailabl e ENGLAND, TONY JUVEL Referring Unavailable ZHUKIVSCAITLIN ANDERSONLANFabi Silva Referring Unavailabl e MAIA, HANI Referring Unavailable VELY, AELA Referring Unavailable VELY, AELA Attending Unavailable Allergies Allergy Classification Reported Allergen(s) Allergy Type Date of Onset Reaction(s) Facility (3 sources) Ibuprofen; Translations: [IBUPROFEN] Drug Allergy 01-08-2022 [facility] Repository (2 sources) moxifloxacin Drug Allergy 09-02-2013 [facility] Repository (2 sources) Alcohol Drug allergy (disorder) 01-08-2022 [facility] Repository Problems Problem Classification Problem Date Documented [...] 01-12-2022 Chronic Other aftercare (1 source) Other long term acute care registered nurse (current) drug therapy; Translations: [OTH TEACHER VISUALLY IMPAIRED CURRENT DRUG THERAPY] Onset: 01-12-2022 Episodic Other aftercare (1 source) jail (current) use of aspirin; Translations: [ASSISTED CURRENT USE OF ASPIRIN] Onset: 01-12-2022 Episodic Other aftercare (1 source) local intermodal truck driver (current) use of anticoagulants; Translations: [ASSISTED CURRNT USE ANTICOAGULANTS] Onset: 01-12-2022 Episodic Other [...] Patient came into office for visit Normal [facility] Office Visiton 04-10-2024 Follow-up visit [id number] Dieudonne Sahu ph 1965 M Date Provider Department Center 04/10/2024 ABA [facility] SURG Second Fl No family history on file Level of Service:20280 [place] POSTOP FOLLOW UP VISIT RELATED TO ORIGINAL PX Reason for Visit and Comments: Post-op [483] Maximo Barrios is here today for post op visit: s/p 03/25/24 subtotal cholecystectomy and drain placement Patient states he took the bulb off due to it being caught on things He has not had any drainage in over a week Normal [facility] 36on 04-04-2024 36 Statistical Secretary called yanique hodges twice to schedule 1 week follow there was no answer Lmom Statistical Secretary will give patient a call back Normal [facility] Office Visiton 04-03-2024 Follow-up visit [id number] Dieudonne Sahu ph 1965 M Date Provider Department Center 04/03/2024 76Oliverio-LUCA CHEN [facility] SURG Second Fl No family history on file Level of Service:20475 [place] POSTOP FOLLOW UP VISIT RELATED TO ORIGINAL PX Reason for Visit and Comments: Post-op [483] - Denis is her/e today for post op visit: S/p Lap Alma Delia with drain placement x2 03/25/24 Normal [facility] 30on 03-26-2024 30 The patient is Moderately Stable - Low risk of patient condition declining or worsening The patient's goals for the shift include comfort and rest The clinical goals for the shift include VSS Normal [facility] APTTon 03-26-2024 ACTIVATED PARTIAL THROMBOPLASTIN TIME IN PPP BY COAGULATION ASSAY 31.8 Seconds Normal 25.0-35.0 [facility] Comment on above: Order Comment: Basel ine aPTT before initiating heparin infusion. Result Comment: Clin ical significance of the APTT is questionable in the presence of heparin. Performed By: #### L [id number] ####[facility] ([employer])[address] [place] [address] CBCon 03-26-2024 Erythrocyte distribution width (RBC) [Ratio] 13.0 % Normal 11.5-15.0 [facility] Comment on above: Performed By: #### L [id number] #### [facility] (BEAKER) [address] [place] [address] ERYTHROCYTE MEAN CORPUSCULAR HEMOGLOBIN CONCENTRATION (G/DL) BY AUTOMATED 32.3 g/dL Normal 32.0-35.0 [facility] Comment on above: Performed By: #### L [id number] #### [facility] (BEAKER) [address] [place] [id number] Hematocrit (Bld) [Volume fraction] 40.3 % Normal 39.0-55.0 [facility] Comment on above: Performed By: #### L [id number] #### [facility] (BEAKER) [address] [place] [address] Hemoglobin (Bld) [Mass/Vol] 13.0 g/dL Normal 13.0-17.0 [facility] Comment on above: Performed By: #### L [id number] #### [facility] [address] [place] [address] MCH (RBC) [Entitic mass] 32.5 pg Normal 27.0-33.0 [facility] Comment on above: Performed By: #### L [id number] #### [facility] [address] [place] [address] MCV (RBC) [Entitic vol] 100.8 fL High 82.0-98.0 [facility] Comment on above: Performed By: #### L [id number] #### [facility] (BEAKER) [address] [place] [address] PLATELETS (10*3/UL) IN BLOOD AUTOMATED COUNT 266 10*3/uL Normal 150-400 [facility] Comment on above: Performed By: #### L [id number] #### [facility] (BEAKER) [address] [place] [address] RBC (Bld) [#/Vol] 4.00 10*6/uL Low 4.20-5.70 [facility] Comment on above: Performed By: #### L [id number] #### [facility] (BEAKER) [address] [place] [address] WBC (Bld) [#/Vol] 19.89 10*3/uL High 4.00-10.60 [facility] Comment on above: Performed By: #### L [id number] #### [facility] (BEAKER) [address] [place] [address] COMPREHENSIVE METABOLIC PANE Sander 03-26-2024 Albumin [Mass/Vol] 3.8 g/dL Normal 3.5-5.7 [facility] Comment on above: Performed By: #### L [id number] ####[facility] (BEAKER)[address] [place] [address] ALP [Catalytic activity/Vol] 45 U/L Normal 34-104 [facility] Comment on above: Performed By: #### L [id number] ####[facility] (BEAKER)[address] [place] [address] ALT [Catalytic activity/Vol] 10 U/L Normal 7-52 [facility] Comment on above: Performed By: #### L [id number] ####[facility] (BEAKER)[address] [place] [address] Anion gap [Moles/Vol] 10 mmol/L Normal 7-20 [facility] Comment on above: Performed By: #### L [id number] ####[facility] (BEAKER)[address] [place] [address] AST [Catalytic activity/Vol] 15 U/L Normal 13-39 [facility] Comment on above: Performed By: #### L [id number] ####[facility] (BEAKER)[address] [place] [address] Bilirubin [Mass/Vol] 0.8 mg/dL Normal 0.3-1.0 [facility] Comment on above: Performed By: #### L [id number] ####[facility] (BEAKER)[address] [place] [address] Calcium [Mass/Vol] 8.9 mg/dL Normal 8.6-10.3 [facility] Comment on above: Performed By: #### L [id number] ####[facility] (BEAKER)[address] [place] [address] Chloride [Moles/Vol] 101 mmol/L Normal 98-107 [facility] Comment on above: Performed By: #### L [id number] ####[facility] (BEAKER)[address] [place] [address] CO2 [Moles/Vol] 28 mmol/L Normal 21-31 [facility] Comment on above: Performed By: #### L [id number] ####[facility] ([facility] [place] [address] Creatinine [Mass/Vol] 0.90 mg/dL Normal 0.70-1.30 [facility] Comment on above: Performed By: #### L [id number] ####[facility] ([facility] [place] [address] GLOMERULAR FILTRATION RATE ML/MIN/1.73 SQ M.PREDICTED 98.4 mL/min/1.73m*2 Normal >60.0 [facility] Comment on above: Result Comment: [facility]???s estimated glomerular filtration rate (eGFR) will no [...] of individuals. Performed By: #### L [id number] ####[facility] (BEAKER)[address] [place] [address] Glucose [Mass/Vol] 159 mg/dL High 70-100 [facility] Comment on above: Performed By: #### L [id number] ####[facility] (BEAKER)[address] [place] [address] Potassium [Moles/Vol] 4.4 mmol/L Normal 3.5-5.1 [facility] Comment on above: Performed By: #### L [id number] ####[facility] ([facility])[address] [place] [address] Protein [Mass/Vol] 6.9 g/dL Normal 6.0-8.3 [facility] Comment on above: Performed By: #### L [id number] ####[facility] ([facility])[address] [place] [address] Sodium [Moles/Vol] 135 mmol/L Low 136-145 [facility] Comment on above: Performed By: #### L [id number] ####[facility] ([facility])[address] [place] [address] Urea nitrogen [Mass/Vol] 13 mg/dL Normal 7-25 [facility] Comment on above: Performed By: #### L [id number] ####[facility] ([facility])[address] [place] [address] UREA NITROGEN/CREATININE (MASS RATIO) IN SER/PLAS 14.4 Normal [facility] Comment on above: Performed By: #### L [id number] ####[facility] ([facility])[address] [place] [address] PLATELET COUNTon 03-26-2024 PLATELETS (10*3/UL) IN BLOOD AUTOMATED COUNT 298 10*3/uL Normal 150-400 [facility] Comment on above: Performed By: #### L [id number] #### [facility] ([facility]) [address] [place] [address] PROTIME-INRon 03-26-2024 INR IN PPP BY COAGULATION ASSAY 1.34 High 0.90-1.10 [facility] Comment on above: Result Comment: ACCC P [...] CHEST 1995;108:231S-246S. Performed By: #### L [id number] ####[facility] [employer] [place] [address] PROTHROMBIN TIME (PT) IN PPP BY COAGULATION ASSAY 16.5 Seconds High 12.3-14.8 [facility] Comment on above: Performed By: #### L [id number] ####[facility] [employer])[address] [place] [address] 30on 03-25-2024 30 The patient is Moderately Stable - Low risk of patient condition declining or worsening The patient's goals for the shift include comfort and rest The clinical goals for the shift include stable VS Over the shift, the patient did make progress toward his goals. Normal [facility] 30 The patient is Moderately Stable - Low risk of patient condition declining or worsening The patient's goals for the shift include comfort and rest The clinical goals for the shift include VSS Normal [facility] APTTon 03-25-2024 ACTIVATED PARTIAL THROMBOPLASTIN TIME IN PPP BY COAGULATION ASSAY 76.3 Seconds High 25.0-35.0 [facility] Comment on above: Result Comment: Clin ical significance of the APTT is questionable in the presence of heparin. Performed By: #### L [id number] #### [facility] [employer]) [address] [place] [address] CBCon 03-25-2024 Erythrocyte distribution width (RBC) [Ratio] 13.2 % Normal 11.5-15.0 [facility] Comment on above: Performed By: #### L [id number] #### [facility] ([facility]) [address] [place] [address] ERYTHROCYTE MEAN CORPUSCULAR HEMOGLOBIN CONCENTRATION (G/DL) BY AUTOMATED 32.0 g/dL Normal 32.0-35.0 [facility] Comment on above: Performed By: #### L [id number] #### [facility] ([facility]) [address] [place] [address] Hematocrit (Bld) [Volume fraction] 39.1 % Normal 39.0-55.0 [facility] Comment on above: Performed By: #### L [id number] #### [facility] ([facility]) [address] [place] [address] Hemoglobin (Bld) [Mass/Vol] 12.5 g/dL Low 13.0-17.0 [facility] Comment on above: Performed By: #### L [id number] #### [facility] ([facility]) [address] [place] [address] MCH (RBC) [Entitic mass] 32.3 pg Normal 27.0-33.0 [facility] Comment on above: Performed By: #### L [id number] #### [facility] ([facility]) [address] [place] [address] MCV (RBC) [Entitic vol] 101.0 fL High 82.0-98.0 [facility] Comment on above: Performed By: #### L [id number] #### [facility] ([facility]) [address] [place] [address] PLATELETS (10*3/UL) IN BLOOD AUTOMATED COUNT 235 10*3/uL Normal 150-400 [facility] Comment on above: Performed By: #### L [id number] #### [facility] ([facility]) [address] [place] [address] RBC (Bld) [#/Vol] 3.87 10*6/uL Low 4.20-5.70 [facility] Comment on above: Performed By: #### L [id number] #### [facility] (BEAKER) [address] [place] [address] WBC (Bld) [#/Vol] 14.90 10*3/uL High 4.00-10.60 [facility] Comment on above: Performed By: #### L [id number] #### [facility] (BEAKER) [address] [place] [address] COMPREHENSIVE METABOLIC PANE Sander 03-25-2024 Albumin [Mass/Vol] 3.6 g/dL Normal 3.5-5.7 [facility] Comment on above: Performed By: #### L [id number] ####[facility] ([facility] [place] [address] ALP [Catalytic activity/Vol] 45 U/L Normal 34-104 [facility] Comment on above: Performed By: #### L [id number] ####[facility] ([facility] [place] [address] ALT [Catalytic activity/Vol] 10 U/L Normal 7-52 [facility] Comment on above: Performed By: #### L [id number] ####[facility] ([facility] [place] [address] Anion gap [Moles/Vol] 9 mmol/L Normal 7-20 [facility] Comment on above: Performed By: #### L [id number] ####[facility] ([facility] [place] [address] AST [Catalytic activity/Vol] 15 U/L Normal 13-39 [facility] Comment on above: Performed By: #### L [id number] ####[facility] ([facility] [place] [address] Bilirubin [Mass/Vol] 0.8 mg/dL Normal 0.3-1.0 [facility] Comment on above: Performed By: #### L [id number] ####[facility] (BEAKER)[address] [place] [address] Calcium [Mass/Vol] 8.5 mg/dL Low 8.6-10.3 [facility] Comment on above: Performed By: #### L [id number] ####[facility] ([facility])[address] [place] [address] Chloride [Moles/Vol] 103 mmol/L Normal 98-107 [facility] Comment on above: Performed By: #### L [id number] ####[facility] ([facility])[address] [place] [address] CO2 [Moles/Vol] 28 mmol/L Normal 21-31 [facility] Comment on above: Performed By: #### L [id number] ####[facility] ([facility])[address] [place] [address] Creatinine [Mass/Vol] 0.92 mg/dL Normal 0.70-1.30 [facility] Comment on above: Performed By: #### L [id number] ####[facility] ([facility])[address] [place] [address] GLOMERULAR FILTRATION RATE ML/MIN/1.73 SQ M.PREDICTED 95.8 mL/min/1.73m*2 Normal >60.0 [facility] Comment on above: Result Comment: The [facility]???s estimated glomerular filtration rate (eGFR) will no [...] of individuals. Performed By: #### L [id number] ####[facility] ([facility])[address] [place] [address] Glucose [Mass/Vol] 120 mg/dL High 70-100 [facility] Comment on above: Performed By: #### L [id number] ####[facility] ([facility])[address] [place] [address] Potassium [Moles/Vol] 4.1 mmol/L Normal 3.5-5.1 [facility] Comment on above: Performed By: #### L [id number] ####[facility] ([facility])[address] [place] [address] Protein [Mass/Vol] 6.6 g/dL Normal 6.0-8.3 [facility] Comment on above: Performed By: #### L [id number] ####[facility] ([facility] [facility] [place] [address] Sodium [Moles/Vol] 136 mmol/L Normal 136-145 [facility] Comment on above: Performed By: #### L [id number] ####[facility] ([facility] [facility] [address] Urea nitrogen [Mass/Vol] 13 mg/dL Normal 7-25 [facility] Comment on above: Performed By: #### L [id number] ####[facility] ([facility])[address] [facility] [address] UREA NITROGEN/CREATININE (MASS RATIO) IN SER/PLAS 14.1 Normal [facility] Comment on above: Performed By: #### L [id number] ####[facility] ([facility])[address] [facility] [place] [address] HISTOLOGY - TISSUE EXAMon LAB AP CASE REPORT Normal [facility] Comment on above: Order Comment: Pre-o p diagnosis:Acute cholecystitis [K81.0] Result Comment: Surg ical Pathology Case: [id number] Authorizing Provider: Luca Chen MD Collected: 03/25/2024 1056 Ordering Location: [facility] Main Operating Room Received: 03/28/2024 0935 Pathologist: Lurdes Harvey MD Specimen: Gallbladder, GALLBLADDER Performed By: #### L [id number] ####[facility] ([facility])[address] [place] [address] LAB AP CLINICAL INFORMATION Normal [facility] Comment on above: Order Comment: Pre-o p diagnosis:Acute cholecystitis [K81.0] Result Comment: Post -Op Diagnoses K81.0 - Acute cholecystitis [ICD-10-CM] Performed By: #### L [id number] ####[facility] ([facility])[address] [place] [address] LAB AP GROSS DESCRIPTION A. Gallbladder. [facility] Comment on above: Order Comment: Pre-o p [...] of gold yellow, friable and dough-like material. Financial Controller sections of soft tissue are submitted in 2 cassettes. Zenobia Davis M.D., PGY-1 Performed By: #### L [id number] ####[facility] ([facility])[address] [place] [address] LAB AP MICROSCOPIC DESCRIPTION Microscopic examination performed. [facility] Comment on above: Order Comment: Pre-o p diagnosis:Acute cholecystitis [K81.0] Performed By: #### L [id number] ####[facility] ([facility])[address] [place] [address] LAB AP REPORT FINAL DIAGNOSIS NARRATIVE [facility] Comment on above: Order Comment: Pre-o p diagnosis:Acute cholecystitis [K81.0] Result Comment: A. G allbladder, cholecystectomy: - Acute and chronic cholecystitis with serositis and transmural inflammation. - Cholelithiasis. Performed By: #### L [id number] ####[facility] ([facility] [place] [address] MAGNESIUMon 03-25-2024 Magnesium [Mass/Vol] 1.6 mg/dL Low 1.9-2.7 [facility] Comment on above: Performed By: #### L [id number] #### [facility] ([employer]) [address] [place] [address] NURSNOTEon 03-25-2024 NURSNOTE Statistical Secretary contacted by [facility]. Patient had 31 runs of vtach overnight between 4-8 beats each. Patient remains asymptomatic to each episode. Roberta Alonzo notified. Order placed for magnesium to be ordered with AM labs. Normal [facility] OPNOTEon 03-25-2024 OPNOTE CHOLECYSTECTOMY, LAPAROSCOPIC Operative Note Date: 03/23/2024 - 03/25/2024 Location: [facility] OR Name: Denis Sahu : 1965, Diagnosis [...] MD 03/25/24 1056 No Description: GALLBLADDER Staff: Air Intelligence Officer: Yuki Hobbs RN Scrub Person: Shalini Marroquin [...] and daniella (more content not included)... Normal [facility] PROTIME-INRon 03-25-2024 INR IN PPP BY COAGULATION ASSAY 1.28 High 0.90-1.10 [facility] Comment on above: Result Comment: ACCC P [...] 1995;108:231S-246S. Performed By: #### L [id number] #### [facility] [employer] [address] [place] [address] PROTHROMBIN TIME (PT) IN PPP BY COAGULATION ASSAY 15.9 Seconds High 12.3-14.8 [facility] Comment on above: Performed By: #### L [id number] #### [facility] ([employer]) [address] [place] [address] TROPONIN Ion 03-25-2024 Troponin I.cardiac [Mass/Vol] 0.01 ng/mL Normal 0.00-0.04 [facility] Comment on above: Performed By: #### L [id number] #### [facility] ([facility] [address] [place] [address] Troponin I.cardiac [Mass/Vol] 0.03 ng/mL Normal 0.00-0.04 [facility] Comment on above: Performed By: #### L [id number] ####[facility] ([facility] [place] [address] 30on 03-24-2024 30 The patient is Moderately Stable - Low risk of patient condition declining or worsening The patient's goals for the shift include comfort and rest The clinical goals for the shift include stable VS Over the shift, the patient did make progress toward his goals. Normal [facility] 30 Daily Case Managemen t Update Multidisciplinary [...] PT Recommendations: OT Recommendations: New Consults: Normal [facility] 30 The patient is Moderately Stable - Low risk of patient condition declining or worsening The patient's goals for the shift include comfort, rest, and find out what the plan is for him The clinical goals for the shift include VSS Normal [facility] 30 The patient is Moderately Stable - Low risk of patient condition declining or worsening The patient's goals for the shift include The clinical goals for the shift include vss Over the shift, the patient did make progress toward his goals. Normal [facility] APTTon 03-24-2024 ACTIVATED PARTIAL THROMBOPLASTIN TIME IN PPP BY COAGULATION ASSAY 82.8 Seconds High 25.0-35.0 [facility] Comment on above: Result Comment: Clin ical significance of the APTT is questionable in the presence of heparin. Performed By: #### L [id number] #### [facility] ([facility]) [address] [place] [address] ACTIVATED PARTIAL THROMBOPLASTIN TIME IN PPP BY COAGULATION ASSAY 79.2 Seconds High 25.0-35.0 [facility] Comment on above: Result Comment: Clin ical significance of the APTT is questionable in the presence of heparin. Performed By: #### L [id number] #### [facility] ([facility]) [address] [place] [address] ACTIVATED PARTIAL THROMBOPLASTIN TIME IN PPP BY COAGULATION ASSAY 28.7 Seconds Normal 25.0-35.0 [facility] Comment on above: Result Comment: Clin ical significance of the APTT is questionable in the presence of heparin. Performed By: #### L [id number] #### [facility] ([facility]) [address] [place] [address] B-TYPE NATRIURETIC PEPTIDEon 03-24-2024 Natriuretic peptide B (Bld) [Mass/Vol] 331 pg/mL High 0-100 [facility] Comment on above: Performed By: #### L [id number] #### [facility] ([facility]) [address] [place] [address] BASIC METABOLIC PANELon 02-25 Anion gap [Moles/Vol] 12 mmol/L Normal 7-20 [facility] Comment on above: Performed By: #### L [id number] #### [facility] ([facility]) [address] [place] [address] Calcium [Mass/Vol] 8.7 mg/dL Normal 8.6-10.3 [facility] Comment on above: Performed By: #### L [id number] #### [facility] ([facility]) [address] [place] [address] Chloride [Moles/Vol] 105 mmol/L Normal 98-107 [facility] Comment on above: Performed By: #### L [id number] #### [facility] ([facility]) [address] [place] [address] CO2 [Moles/Vol] 23 mmol/L Normal 21-31 [facility] Comment on above: Performed By: #### L [id number] #### [facility] ([facility]) [address] [place] [id number] Creatinine [Mass/Vol] 1.02 mg/dL Normal 0.70-1.30 [facility] Comment on above: Performed By: #### L [id number] #### [facility] ([facility]) [address] [place] [address] GLOMERULAR FILTRATION RATE ML/MIN/1.73 SQ M.PREDICTED 84.7 mL/min/1.73m*2 Normal >60.0 [facility] Comment on above: Result Comment: [facility]???s estimated glomerular filtration rate (eGFR) will no [...] individuals. Performed By: #### L [id number] #### [facility] ([facility]) [address] [place] [address] Glucose [Mass/Vol] 108 mg/dL High 70-100 [facility] Comment on above: Performed By: #### L [id number] #### [facility] ([facility]) [address] [place] [id number] Potassium [Moles/Vol] 4.0 mmol/L Normal 3.5-5.1 [facility] Comment on above: Performed By: #### L [id number] #### [facility] ([facility]) [address] [place] [address] Sodium [Moles/Vol] 136 mmol/L Normal 136-145 [facility] Comment on above: Performed By: #### L [id number] #### [facility] [address] [place] [address] Urea nitrogen [Mass/Vol] 17 mg/dL Normal 7-25 [facility] Comment on above: Performed By: #### L [id number] #### [facility] [address] [place] [address] UREA NITROGEN/CREATININE (MASS RATIO) IN SER/PLAS 16.7 Normal [facility] Comment on above: Performed By: #### L [id number] #### [facility] ([facility]) [address] [place] [address] CBC WITH AUTO DIFFERENTIALon 03-24-2024 Erythrocyte distribution width (RBC) [Ratio] 13.2 % Normal 11.5-15.0 [facility] Comment on above: Performed By: #### L [id number] #### [facility] ([facility]) [address] [place] [address] ERYTHROCYTE MEAN CORPUSCULAR HEMOGLOBIN CONCENTRATION (G/DL) BY AUTOMATED 32.4 g/dL Normal 32.0-35.0 [facility] Comment on above: Performed By: #### L [id number] #### [facility] ([facility]) [address] [place] [address] Hematocrit (Bld) [Volume fraction] 42.6 % Normal 39.0-55.0 [facility] Comment on above: Performed By: #### L [id number] #### [facility] ([facility]) [address] [place] [address] Hemoglobin (Bld) [Mass/Vol] 13.8 g/dL Normal 13.0-17.0 [facility] Comment on above: Performed By: #### L [id number] #### [facility] ([facility]) [address] [place] [address] MCH (RBC) [Entitic mass] 32.3 pg Normal 27.0-33.0 [facility] Comment on above: Performed By: #### L [id number] #### [facility] ([facility]) [address] [place] [id number] MCV (RBC) [Entitic vol] 99.8 fL High 82.0-98.0 [facility] Comment on above: Performed By: #### L [id number] #### [facility] ([facility]) [address] [place] [id number] NRBC (PER 100 WBCS) BY AUTOMATED COUNT 0.0 % Normal 0 [facility] Comment on above: Performed By: #### L [id number] #### [facility] ([facility]) [address] [place] [id number] PLATELETS (10*3/UL) IN BLOOD AUTOMATED COUNT 300 10*3/uL Normal 150-400 [facility] Comment on above: Performed By: #### L [id number] #### [facility] ([facility]) [address] [place] [id number] RBC (Bld) [#/Vol] 4.27 10*6/uL Normal 4.20-5.70 [facility] Comment on above: Performed By: #### L [id number] #### [facility] ([facility]) [address] [place] [id number] WBC (Bld) [#/Vol] 17.06 10*3/uL High 4.00-10.60 [facility] Comment on above: Performed By: #### L [id number] #### [facility] ([facility]) [address] [place] [id number] CONSULTon 03-24-2024 CONSULT --- Attestation signed by Marleny Beltran MD at 03/24/2024 1:30 PM GC: I saw this patient. I personally performed the critical/lin portions that determines the level of service. I was directly involved in the management and treatment plan of the patient. I reviewed resident Dr. Saavedra's note and agree with the documentation. Patient with history of atrial fibrillation and high [id number] score. He was transferred from [facility] for cholecystitis. He had elevated white blood [...] and Obesity, who presents as transfer from [place] where he initially presented with epigastric/abdominal pain, nausea. Workup showed Cholecystitis. Patient went into Afib with RVR. Dr Beltran stated patient was moderate nonprohibitive risk for surgery, however patient suffered few runs of VT and decision was made to transfer to [facility] for cardiology evaluation. Upon eval, patient feels [...] Neurological: Gen (more content not included)... Normal [facility] CT ABDOMEN PELVIS W IV CONTR Trina [...] outlet obstruction. Electronically signed: Laureano Rojas. Normal [facility] HEPATIC FUNCTION PANELon Albumin [Mass/Vol] 3.9 g/dL Normal 3.5-5.7 [facility] Comment on above: Performed By: #### L [id number] ####[facility] ([facility])[address] [place] [address] ALP [Catalytic activity/Vol] 54 U/L Normal 34-104 [facility] Comment on above: Performed By: #### L [id number] ####[facility] ([facility])[address] [place] [address] ALT [Catalytic activity/Vol] 12 U/L Normal 7-52 [facility] Comment on above: Performed By: #### L [id number] ####[facility] ([facility])[address] [place] [address] AST [Catalytic activity/Vol] 15 U/L Normal 13-39 [facility] Comment on above: Performed By: #### L [id number] ####[facility] ([facility])[address] [place] [address] Bilirubin [Mass/Vol] 1.0 mg/dL Normal 0.3-1.0 [facility] Comment on above: Performed By: #### L [id number] ####[facility] ([facility])[address] [place] [address] Magnesium [Mass/Vol] 0.3 mg/dL High 0-0.2 [facility] Comment on above: Performed By: #### L [id number] ####[facility] ([facility])[address] [place] [address] Protein [Mass/Vol] 6.9 g/dL Normal 6.0-8.3 [facility] Comment on above: Performed By: #### L [id number] ####[facility] ([facility])[address] [place] [address] MAGNESIUMon 03-24-2024 Magnesium [Mass/Vol] 1.7 mg/dL Low 1.9-2.7 [facility] Comment on above: Performed By: #### L [id number] #### [facility] ([facility]) [address] [place] [address] MANUAL DIFFERENTIALon 2023 BASOPHILS (10*3/UL) IN BLOOD BY CALCULATION 0.10 10*3/uL Normal 0.00-0.20 [facility] Comment on above: Performed By: #### L [id number] ####[facility] ([facility])[address] [place] [address] BASOPHILS/100 LEUKOCYTES IN BLOOD BY AUTOMATED COUNT 0.6 % Normal 0.0-1.0 [facility] Comment on above: Performed By: #### L [id number] ####[facility] ([facility])[address] [place] [address] EOSINOPHILS (10*3/UL) IN BLOOD BY CALCULATION 0.03 10*3/uL Normal 0.00-0.50 [facility] Comment on above: Performed By: #### L [id number] ####[facility] ([facility])[address] [place] [address] EOSINOPHILS/100 LEUKOCYTES IN BLOOD BY AUTOMATED COUNT 0.2 % Normal 0.0-6.0 [facility] Comment on above: Performed By: #### L [id number] ####[facility] ([facility])[address] [place] [address] IMMATURE GRANULOCYTES (10*3/UL) IN BLOOD BY CALCULATION 0.09 10*3/uL Normal 0.00-0.20 [facility] Comment on above: Performed By: #### L [id number] ####[facility] ([facility])[address] [place] [address] IMMATURE GRANULOCYTES/100 LEUKOCYTES IN BLOOD BY AUTOMATED COUNT 0.5 % Normal 0.0-1.0 [facility] Comment on above: Performed By: #### L [id number] ####[facility] ([facility])[address] [place] [address] LYMPHOCYTES (10*3/UL) IN BLOOD BY CALCULATION 1.76 10*3/uL Normal 1.20-4.00 [facility] Comment on above: Performed By: #### L [id number] ####[facility] ([facility])[address] [place] [address] LYMPHOCYTES/100 LEUKOCYTES IN BLOOD BY AUTOMATED COUNT 10.3 % Low 20.0-45.0 [facility] Comment on above: Performed By: #### L [id number] ####[facility] ([facility])[address] [place] [address] MONOCYTES (10*3/UL) IN BLOOD BY CALCUATION 1.76 10*3/uL High 0.10-1.00 [facility] Comment on above: Performed By: #### L [id number] ####[facility] ([facility])[address] [place] [address] MONOCYTES/100 LEUKOCYTES IN BLOOD BY AUTOMATED COUNT 10.3 % Normal 5.0-12.0 [facility] Comment on above: Performed By: #### L [id number] ####[facility] ([facility])[address] [place] [address] NEUTROPHILS (10*3/UL) IN BLOOD BY CALCULATION 13.3 10*3/uL High 1.6-7.6 [facility] Comment on above: Performed By: #### L [id number] ####[facility] ([facility])[address] [place] [address] NEUTROPHILS/100 LEUKOCYTES IN BLOOD BY AUTOMATED COUNT 78.1 % High 40.0-72.0 [facility] Comment on above: Performed By: #### L [id number] ####[facility] ([facility])[address] [place] [address] PROTIME-INRon 03-24-2024 INR IN PPP BY COAGULATION ASSAY 1.37 High 0.90-1.10 [facility] Comment on above: Result Comment: ACCC P [...] CHEST 1995;108:231S-246S. Performed By: #### L [id number] ####[facility] ([facility])[address] [place] [address] PROTHROMBIN TIME (PT) IN PPP BY COAGULATION ASSAY 16.7 Seconds High 12.3-14.8 [facility] Comment on above: Performed By: #### L [id number] ####[facility] ([facility])[address] [place] [address] INR IN PPP BY COAGULATION ASSAY 1.28 High 0.90-1.10 [facility] Comment on above: Result Comment: [facility] P RECOMMENDED INR FOR WARFARIN THERAPY CONDITION [...] 1995;108:231S-246S. Performed By: #### L [id number] #### [facility] ([facility]) [address] [place] [address] PROTHROMBIN TIME (PT) IN PPP BY COAGULATION ASSAY 15.9 Seconds High 12.3-14.8 [facility] Comment on above: Performed By: #### L [id number] #### [facility] ([facility]) [address] [place] [address] TROPONIN Ion 03-24-2024 Troponin I.cardiac [Mass/Vol] 0.01 ng/mL Normal 0.00-0.04 [facility] Comment on above: Performed By: #### L [id number] ####[facility] ([facility])[address] [place] [address] TYPE AND SCREENon 03-24-2024 AB SCREEN Negative Normal [facility] Comment on above: Performed By: #### L [id number] ####[facility], ABO group Nom (Bld) B Normal [facility] Comment on above: Performed By: #### L [id number] ####[facility], RH TYPE IN BLOOD Positive Normal [facility] Comment on above: Performed By: #### L [id number] ####[facility], CONSULTon 03-23-2024 CONSULT Reason For Consult acute cholecystitis, known pt Referring Provider: Chung Perkins MD History Of Present Illness Denis Sahu is a 58 y.o. male presenting with acute cholecystitis. Patient has past medical history of paroxysmal atrial fibrillation on Xarelto, hypertension, and morbid obesity. Patient transferred from [facility]. Patient presented to the emergency department at [facility] reporting shortness of breath and chest pain. Patient began experiencing epigastric and right upper quadrant abdominal pain accompanied by nausea. Patient reports he has not taken his carvedilol or digoxin for 3 days prior to presentation. Patient was admitted to [facility] for acute cholecystitis and was started on [...] Ref Rang (more content not included)... Normal [facility] ACUTE HEPATITIS PANELon ANTI HCV W/PCR REFLX Non-Reactive Normal [facility] Comment on above: Result Comment: If recent infection suspected, recommend repeat testing (>2 months). Kcoqcv-rb-amejhb ratio is <0.80. Performed By: #### [place], 57[address]-2, 61890-5 #### [facility] ([id number]) [address], [facility] [address] [place] [address] HEPATITIS A IGM Non-Reactive Normal [facility] Comment on above: Performed By: #### [place] HP, 34188-4, 40527-1 #### [facility] ([id number]) [address], [address] [address] HEPATITIS B CORE IGM Negative Normal NEG [facility] Comment on above: Performed By: #### [place], 72864-7, 64869-2 #### [facility] ([id number]) [address], [address] [place] [address] HEPATITIS B SURF AG Negative Normal NEG [facility] Comment on above: Performed By: #### [place], 70681-0, 23165-7 #### [facility] ([id number]) [address], [address] [address] HIV 1+2 Ab+HIV1 p24 Ag IA Ql on 09-25-2023 HIV 1 and 2 Ab/Ag Screen Non-Reactive Normal [facility] Comment on above: Result Comment: This [...] or diagnoses. Performed By: #### A , 59203-2, 08089-9 #### [facility] ([id number]) [address], [address] [place] [address] T. pallidum IgG+IgM IA Ql (S )on 09-25-2023 Syphilis Total <0.2 Normal 0.0-0.8 [facility] Comment on above: Result Comment: NON REACTIVE No serologic evidence of infection to Treponema pallidum (syphilis). Repeat testing may be considered in patients with suspected acute or primary syphilis in 2 to 4 weeks. Performed By: #### A , 00897-1, 21227-9 #### [facility] ([id number]) [address], [address] [place] [address] CT ABD/PELV W CONon 01-10-20 CT ABD/PELV [...] by: ELBERT ROSALES Date: 2022-01-09 00:26 Normal [facility] XR CHEST 1 Von 01-09-2022 XR CHEST [...] SHONDA RAY Date: 2022-01-08 22:09 Normal [facility] BNPon 01-08-2022 Natriuretic peptide B (Bld) [Mass/Vol] 895.0 pg/mL Normal <=900.0 [facility] Comment on above: Performed By: #### H STROPN, LIPA, BNP, CMP #### [facility] [address] [place] [address] [address] Teresa England CBC AUTO DIFFon 01-08-2022 BASO # 0.0 103/ul Normal 0.0-0.1 [facility] Comment on above: Performed By: #### C BC #### [facility] [address] [address] [address] Teresa England Basophils/100 WBC (Bld) 0.6 % Normal 0.2-2.0 [facility] Comment on above: Performed By: #### C BC #### [facility] [address] [place] [address] Dr. Teresa England EO # 0.0 103/ul Normal 0.0-0.7 [facility] Comment on above: Performed By: #### C BC #### [facility] [address] [place] [address] Dr. Teresa England Eosinophils/100 WBC (Bld) 0.6 % Critically low 0.9-7.0 [facility] Comment on above: Performed By: #### C BC #### [facility] [address] [place] [address] Dr. Teresa England Erythrocyte distribution width (RBC) [Ratio] 12.7 % Normal 11.0-15.0 [facility] Comment on above: Performed By: #### C BC #### [facility] [address] [place] [address] Dr. Teresa England Hematocrit (Bld) [Volume fraction] 51.0 % Normal 42.0-54.0 [facility] Comment on above: Performed By: #### C BC #### [facility] [address] [place] [address] Dr. Teresa England Hemoglobin (Bld) [Mass/Vol] 16.9 g/dL Normal 14.0-18.0 [facility] Comment on above: Performed By: #### C BC #### [facility] [address] [place] [address] Dr. Teresa England IG # 0.02 10e3/ul Normal 0.00-0.03 [facility] Comment on above: Performed By: #### C BC #### [facility] [address] [place] [address] Dr. Teresa England IG % 0.4 % Normal 0.0-0.5 [facility] Comment on above: Performed By: #### C BC #### [facility] [address] [place] [address] Dr. Teresa England LYMPH # 1.3 103/ul Normal 1.2-3.8 [facility] Comment on above: Performed By: #### C BC #### [facility] [address] [place] [address] Dr. Teresa England Lymphocytes/100 WBC (Bld) 24.5 % Normal 20.5-60.0 [facility] Comment on above: Performed By: #### C BC #### [facility] [address] [place] [address] Dr. Teresa England MANUAL DIFF REQ NO Normal [facility] Comment on above: Performed By: #### C BC #### [facility] [address] [place] [address] Dr. Teresa England MCH (RBC) [Entitic mass] 32.3 pg Normal 25.9-34.0 [facility] Comment on above: Performed By: #### C BC #### [facility] [address] [place] [address] Dr. Teresa England MCHC (RBC) [Mass/Vol] 33.1 g/dL Normal 29.9-35.2 [facility] Comment on above: Performed By: #### C BC #### [facility] [address] [place] [address] Dr. Teresa England MCV (RBC) [Entitic vol] 97.3 fL Critically high 80.0-94.0 [facility] Comment on above: Performed By: #### C BC #### [facility] [address] [place] [address] Dr. Teresa England MONO # 1.0 103/ul Critically high 0.3-0.8 [facility] Comment on above: Performed By: #### C BC #### [facility] [address] [place] [address] Dr. Teresa England Monocytes/100 WBC (Bld) 18.2 % Critically high 1.7-12.0 [facility] Comment on above: Performed By: #### C BC #### [facility] [address] [place] [address] Dr. Teresa England NEUT # 3.0 103/ul Normal 1.4-6.5 [facility] Comment on above: Performed By: #### C BC #### [facility] [address] [address] [address] Teresa England Neutrophils/100 WBC (Bld) 55.7 % Normal 43.0-75.0 [facility] Comment on above: Performed By: #### C BC #### [facility] [address] [address] [address] Teresa England Platelet mean volume (Bld) [Entitic vol] 10.3 fL Normal 9.5-13.5 [facility] Comment on above: Performed By: #### C BC #### [facility] [address] [place] [address] Dr. Teresa England PLT 217 103/ul Normal 150-450 [facility] Comment on above: Performed By: #### C BC #### [facility] [address] [address] [address] Teresa England RBC 5.24 106/ul Normal 4.70-6.10 [facility] Comment on above: Performed By: #### C BC #### [facility] [address] [address] [address] Teresa England WBC 5.4 103/ul Normal 4.0-11.0 [facility] Comment on above: Performed By: #### C BC #### [facility] [address] [place] [address] Dr. Teresa England DIGOXINon 01-08-2022 DIG 0.3 ng/mL Critically low 0.9-2.0 [facility] Comment on above: Performed By: #### D IG ####[facility] [id number] [address]Dr. Teresa England LACTATE/LACTIC ACIDon 2021 Lactate [Moles/Vol] 1.6 mmol/L Normal 0.4-1.9 [facility] Comment on above: Performed By: #### L ACT #### [facility] [address] [address] [address] Teresa England LIPASEon 01-08-2022 Lipase [Catalytic activity/Vol] 149.0 U/L Normal 73.0-393.0 [facility] Comment on above: Performed By: #### H STROPN, LIPA, BNP, CMP #### [facility] [address] [address] [address] Teresa England PROF 14(COMP METB)on 022 Albumin [Mass/Vol] 4.0 g/dL Normal 3.4-5.0 [facility] Comment on above: Performed By: #### H STROPN, LIPA, BNP, CMP #### [facility] [address] [address] [address] Teresa England Albumin/Globulin [Mass ratio] 1.0 {ratio} Normal [facility] Comment on above: Performed By: #### H STROPN, LIPA, BNP, CMP #### [facility] [address] [address] [address] Teresa England ALP [Catalytic activity/Vol] 46 U/L Normal 46-116 [facility] Comment on above: Performed By: #### H STROPN, LIPA, BNP, CMP #### [facility] [address] [address] [address] Teresa England ALT [Catalytic activity/Vol] 67 U/L Critically high 16-63 [facility] Comment on above: Performed By: #### H STROPN, LIPA, BNP, CMP #### [facility] [address] [address] [address] Teresa England Anion gap [Moles/Vol] 10.9 mmol/L Normal [facility] Comment on above: Performed By: #### H STROPN, LIPA, BNP, CMP #### [facility] [address] [address] [address] Teresa England AST [Catalytic activity/Vol] 58 U/L Critically high 15-37 [facility] Comment on above: Performed By: #### H STROPN, LIPA, BNP, CMP #### [facility] [address] [address] [address] Teresa England Bilirubin [Mass/Vol] 0.9 mg/dL Normal 0.2-1.0 [facility] Comment on above: Performed By: #### H STROPN, LIPA, BNP, CMP #### [facility] [address] [place] [address] Dr. Teresa England Calcium [Mass/Vol] 9.1 mg/dL Normal 8.5-10.1 [facility] Comment on above: Performed By: #### H STROPN, LIPA, BNP, CMP #### [facility] [address] [place] [address] Dr. Teresa England Chloride [Moles/Vol] 103 mmol/L Normal 98-107 [facility] Comment on above: Performed By: #### H STROPN, LIPA, BNP, CMP #### [facility] [address] [place] [address] Dr. Teresa England CO2 [Moles/Vol] 26.3 mmol/L Normal 21.0-32.0 [facility] Comment on above: Performed By: #### H STROPN, LIPA, BNP, CMP #### [facility] [address] [place] [address] Dr. Teresa England Creatinine [Mass/Vol] 1.21 mg/dL Normal 0.70-1.30 [facility] Comment on above: Performed By: #### H STROPN, LIPA, BNP, CMP #### [facility] [address] [place] [address] Dr. Teresa [place] EGFR-AF PERUVIAN >60 Normal >=60 [facility] Comment on above: Performed By: #### H STROPN, LIPA, BNP, CMP #### [facility] [address] [place] [address] Dr. Teresa [place] EGFR-NON AF PERUVIAN >60 Normal >=60 [facility] Comment on above: Performed By: #### H STROPN, LIPA, BNP, CMP #### [facility] [address] [place] [address] Dr. Teresa [place] Globulin (S) [Mass/Vol] 4.1 g/dL Normal [facility] Comment on above: Performed By: #### H STROPN, LIPA, BNP, CMP #### [facility] [address] [address] [address] Teresa [place] Glucose [Mass/Vol] 122 mg/dL Critically high 74-106 [facility] Comment on above: Performed By: #### H STROPN, LIPA, BNP, CMP #### [facility] [address] [place] [address] Dr. Teresa [place] Potassium [Moles/Vol] 4.2 mmol/L Normal 3.5-5.1 [facility] Comment on above: Performed By: #### H STROPN, LIPA, BNP, CMP #### [facility] [address] [address] [address] Teresa [place] Protein [Mass/Vol] 8.1 g/dL Normal 6.4-8.2 [facility] Comment on above: Performed By: #### H STROPN, LIPA, BNP, CMP #### [facility] [address] [place] [address] Dr. Teresa [place] Sodium [Moles/Vol] 136 mmol/L Normal 136-145 [facility] Comment on above: Performed By: #### H STROPN, LIPA, BNP, CMP #### [facility] [address] [place] [address] Dr. Teresa England Urea nitrogen [Mass/Vol] 12.0 mg/dL Normal 7.0-18.0 [facility] Comment on above: Performed By: #### H STROPN, LIPA, BNP, CMP #### [facility] [address] [place] [address] Dr. Teresa [place] Urea nitrogen/Creatinine [Mass ratio] 9.9 mg/mg Normal [facility] Comment on above: Performed By: #### H STROPN, LIPA, BNP, CMP #### [facility] [address] [place] [address] Dr. Teresa [place] PROTIMEon 01-08-2022 INR Coag (PPP) [Relative time] 1.22 {INR} Normal [facility] Comment on above: Performed By: #### P T, PTT #### [facility] [address] [address] [address] Teresa England INR GUIDELINES SEE BELOW Normal [facility] Comment on above: Result Comment: COURTNEY RED INR: 2.0 - 3.0 CONDITIONS NOT LISTED BELOW 2.5 - 3.5 FOR PROSTHETIC HEART VALVE REPLACEMENT 2.5 - 3.5 RECURRENT THROMBOSIS Performed By: #### P T, PTT #### [facility] [address] [address] [address] Teresa [place] PT Coag (PPP) [Time] 13.0 s Critically high 9.0-11.6 [facility] Comment on above: Performed By: #### P T, PTT #### [facility] [address] [address] [address] Teresa England PTTon 01-08-2022 aPTT Coag (Bld) [Time] 30.1 s Normal 22.3-36.2 [facility] Comment on above: Performed By: #### P T, PTT #### [facility] [address] [address] [address] Teresa England TROPONIN, HIGH SENSITIVITYon 01-08-2022 HSTROP 17.3 pg/mL Normal 4.0-76.1 [facility] Comment on above: Result Comment: CUT- OFF POINTS HAVE BEEN ESTABLISHED BASED ON THE FOURTH UNIVERSAL DEFINITIONS OF MYOCARDIAL INFARCTION. THE UPPER REFERENCE LIMIT (URL) OF TROPONIN, DEFINED THE 99TH PERCENTILE OF cTnI DISTRIBUTION IN A REFERENCE POPULATION, HAS BEEN CONFIRMED THE DECISION THRESHOLD FOR [place] DIAGNOSIS. Performed By: #### H STROPN, LIPA, BNP, CMP ####[facility] [address] [place], [place] [address]UtDr. Teresa [place] [facility] [place] [facility] [place] [place] January 10, 2021 Genet Feliciano, [address] [place] [address] Re: DENIS SAHU Date of : 1965 Thank you for your referral of Denis Sahu who was seen on consultation on January 01, 2021, for multiple recurrent skin cysts on face and neck. I have enclosed my consultation notes for your review. Sincerely, James Esparza MD General Surgery Normal [facility] Facesheeton 01-02-2021 Facesheet [id number] D:127 Normal [facility] Ambulatory Clinical Summaryo n 01-01-2021 Ambulatory Clinical Summary {[id number]}CD:[id number] Normal [facility] Patient Educationon 01-02-20 Patient Education Physical Medicine [...] your health care provider or diet and animal nutrition teacher (dietitian). This may include: ? Eating fewer [...] weight villalobos (more content not included)... Normal [facility] Physician Referralon 021 Physician Referral [id number] D:127 [facility] Encounters Encounter Date Encounter Type Care Provider Facility Start: 04-10-2024 End: 04-10-2024 ambulatory ABA MCCURDY [facility] Start: 04-03-2024 End: 04-03-2024 ambulatory LUCA CHEN [facility] Start: 03-24-2024 Evaluation and management of inpatient TONY ARTEAGA ENGLAND [facility] Start: 03-24-2024 Evaluation and management of inpatient CHUNG M [facility] Start: 03-23-2024 Evaluation and management of inpatient CHUNG Ricardo [facility] Start: 03-23-2024 End: 03-26-2024 Evaluation and management of inpatient ALEXANDRE JEFFERSON [facility] Start: 09-25-2023 End: 09-26-2023 ambulatory GENET FELICIANO [facility] Start: 01-29-[address] GENET FELICIANO Facility :[facility] Start: 01-08-2022 End: 01-09-[address] GENET FELICIANO Facility:[facility] Payers Date Payer Category Payer Medicaid [id number] 1965 Unknown [id number] 1965 Unknown [id number] 1965 Unknown [id number] 1960 Self-pay [id number] 1960 Unknown [id number] Clinical Notes 01-06-2021 to 04-10-2024 Note Date [...] past 36 hour(s)). No follow-ups on file. [facility] 04-03-2024 Note CLINICAL HISTORY: Ch olecystitis, abdominal [...] Electronically signed: Pedro Sanders MD. Not Vldtd [facility] 04-03-2024 Note Subjective Patient ID: Denis Sahu [...] past 36 hour(s)). No follow-ups on file. [facility] 03-26-2024 Note Hospital Medicine Discharge Summary Final Discharge Diagnosis: Acute cholecystis Afib with RVR Hypomagnesemia Obesity class II Essential hypertension Coagulopathy Admission Diagnosis: Acute cholecystitis [K81.0] Hospital course: Mr. Denis Sahu is an 58 y.o. male with past medical history of paroxysmal A-fib, on Xarelto, hypertension and obesity. He presented to [facility] as a transfer from [facility] on 03/23/2024. Patient initially presented to [facility] ER with chest pain and shortness of [...] and they consulted cardiology for surgical clearance. Childcare Director, Dr. Beltran cleared him for the surgery. Per report, patient is moderate risk for surgical complications. However, surgeon was concerned about short runs of V. tach on telemetry. On EKG findings were consistent with NSVT. They wanted patient to be transferred to the hospital with cardiology service so surgery department at [facility] was reached out and they agreed to [...] Your Medications These medications were sent to [facility] [id number] [id number] [facility] [address] [facility] [address] acetaminophen 500 mg tablet amoxicillin-pot clavulanate 875-125 [...] 10*3/uL 298 266 (more content not included)... [facility] 03-26-2024 Note Discussed with doug freitas RN and pt at bedside on whether he would like [facility] for his drains. Pt declined needing it citing that he feels comfortable taking care of it himself and also cited that he has support from his son whom he lives w/ and his girlfriend who has worked in nursing homes before. Pt will discharge home today with no further needs. [facility] 03-26-2024 Note ------ Attestation signed by Fer [...] 84 QT Interval 362 QTC CALCULATION(BAZETT) 447 R-[place] 65 T Wave [place] 65 Impression Atrial fibrillation Nonspecific T wave abnormality Abnormal ECG No previous ECGs available Confirmed by Fer Campos ([id number]) on 03/24/2024 12:30:27 PM Lab Results Component Value Date TROPONINI 0.01 03/25/2024 Complete Echo (TTE) w/wo Imaging Agent, Strain, 3D, Bubble Study Result Date: 03/24/2024 1 1 [facility] [address] [place] [address] [phone] (fax) Echocardiogram-[facility] Name: DENIS SAHU Study Date: 03/24/2024 02:38 PM B/P: 118 mmHg/80 mmHg HR: Date of : 1965 Location: [facility] Height: 70 in. Age: 58 year(s) Patient Room: 3140 Weight: 255 lb. Gender: Male Patient Status: InPt BSA: 2.31 m2 Indication: Atrial Fibrillation Examination: Echocardiogra (more content not included)... [facility] 03-26-2024 Note ------ Attestation signed by Luca Chen MD at 03/26/2024 7:28 PM GC: I saw this patient. I personally performed the critical/lin portions that determines the level of service. I was directly involved in the management and treatment plan of the patient. I reviewed resident Oswald Ni MD 's note and agree with the documentation ------ [facility] General Surgery DAILY PROGRESS NOTE Subjective Underwent [...] Agent, Strain, 3D, Bubble Study 1 1 [facility] [address] [place] [address] [phone] (fax) Echocardiogram-[facility] Name: DENIS SAHU Study Date: 03/24/2024 02:38 PM B/P: 118 mmHg/80 mmHg HR: Date of : 1965 Location: [facility] Height: 70 in. Age: 58 year(s) Patient [...] - 1.7 m/sec (more content not included)... [facility] 03-25-2024 Note Hospital Medicine Daily Progress Note - 03/25/2024 12:04 PM; Room: OR/- Admission: 03/23/2024 7:37 PM; Length of stay: 2 days THE HOSPITALIST TEAM PREFERS TO USE [employer] CHAT FOR COMMUNICATION 7AM-7PM. IF I DO NOT RESPOND WITHIN 15 MINUTES, PLEASE PAGE ME/CALL THROUGH THE TOOL CRIB ATTENDANT. FROM 7PM-7AM, PLEASE PAGE [phone](COVR) Code Status: Full Code Barriers to Discharge: [...] cholecystitis Active Problems: Atrial fibrillation with RVR ([facility]) Hypomagnesemia Assessment and Plan Afib with RVR [...] ALT U/L 10 (more content not included)... [facility] 03-25-2024 Note Patient: Denis esteban Procedure Summary Date: 03/25/24 Room / Location: [facility] OPERATING ROOM 13 / [facility] Operating Room Anesthesia Start: 912 Anesthesia Stop: [...] per anesthesia protocol. No notable events documented. [facility] 03-25-2024 Note Airway Date/Time: 03/25/2024 9:23 AM Urgency: elective General Information and Staff Patient location during procedure: OR Anesthesiologist: Daren Prado MD Performed: resident/MAIL OFFICER/CAA Indications and Patient Condition Indications for airway [...] 1 Number of other approaches attempted: 0 [facility] 03-25-2024 Note Visit Vitals BP (!) 122/98 Pulse (!) 118 Temp 36.8 ???C (98.3 ???F) (Temporal) Resp 22 Irregularly rate Non labored breathing Soft, mild tenderness to palpation in the right upper quadrant 58 year old man with multiple comorbidities with acute cholecystitis Plan for OR today Risks and benefits discussed with the patient [facility] 03-25-2024 Note Patient: Denis esteban Procedure Information Date/Time: 03/25/24 1030 Procedure: CHOLECYSTECTOMY, LAPAROSCOPIC (Abdomen) Location: [facility] OPERATING ROOM 13 / [facility] Operating Room Surgeons: Luca Chen MD Relevant [...] with CAA and resident. Additional Equipment Requests [facility] 03-24-2024 Note Hospital Medicine Daily Progress Note - 03/24/2024 6:01 PM; Room: [facility] Admission: 03/23/2024 7:37 PM; Length of stay: 1 days THE HOSPITALIST TEAM PREFERS TO USE [employer] CHAT FOR COMMUNICATION 7AM-7PM. IF I DO NOT RESPOND WITHIN 15 MINUTES, PLEASE PAGE ME/CALL THROUGH THE TOOL CRIB ATTENDANT. FROM 7PM-7AM, PLEASE PAGE [phone](COVR) Code Status: Full Code Barriers to Discharge: [...] , FREET4 , CORTISOL , FEV1 , UPC7RSJ , DLCO , RVSP , HDL , LDL No results found for: GUMNVINE89 , IRON , TIBC , C3 , C4 , ADRY , CANCA , ASO , PSA , CEA , CA125 , CA199 , AFP , CA153 Imaging Complete Echo (TTE) w/wo Imaging Agent, Strain, 3D, Bubble Study 1 1 [facility] [address] [place] [address] (fax) Echocardiogram-[facility] Name: DENIS SAHU Study Date: 03/24/2024 02:38 PM B/P: 118 mmHg/80 mmHg HR: Date of : 1965 Location: [facility] Height: 70 i (more content not included)... [facility] 03-24-2024 Note ------ Attestation signed by Luca Chen MD at 03/25/2024 9:16 AM GC: I saw this patient. I personally performed the critical/lin portions that determines the level of service. I was directly involved in the management and treatment plan of the patient. I reviewed resident Rigoberto Rodrigez MD 's note and agree with the documentation ------ [facility] General Surgery DAILY PROGRESS NOTE Subjective Patient [...] to difficulty a (more content not included)... [facility] 03-24-2024 Note Hospital Medicine Daily Progress Note - 03/24/2024 11:14 AM; Room: [address] [place] [address] Admission: 03/23/2024 7:37 PM; Length of stay: 1 days THE HOSPITALIST TEAM PREFERS TO USE [employer] CHAT FOR COMMUNICATION 7AM-7PM. IF I DO NOT RESPOND WITHIN 15 MINUTES, PLEASE PAGE ME/CALL THROUGH THE TOOL CRIB ATTENDANT. FROM 7PM-7AM, PLEASE PAGE [phone](COVR) Code Status: Full Code Barriers to Discharge: [...] TOTAL mg/dL 1.0 (more content not included)... [facility] 03-24-2024 Note HR jumped up to 170 and was consistently 135. Unable to perform echocardiogram at this time. Will attempt when heart rate is under 120 bpm. [facility] 03-24-2024 Note 03/24/24 0901 Admission Assessment Questions [...] Status Interested Does the patient have a outpatient case manager assigned to them through their insurance? No [...] to send link and activate MyChart? Yes [facility] 03-23-2024 Note Hospital Medicine History and Physical 03/23/2024 11:40 PM THE HOSPITALIST TEAM PREFERS TO USE [employer] FOR COMMUNICATION 7AM-7PM. IF I DO NOT RESPOND WITHIN 15 MINUTES, PLEASE PAGE ME/CALL THROUGH THE TOOL CRIB ATTENDANT. FROM 7PM-7AM, PLEASE PAGE [phone](COVR) Chief Complaint No chief complaint on file. History of Present Illness Denis aShu is an 58 y.o. male who came from [facility] with past medical history of paroxysmal A-fib, on Xarelto, hypertension and morbid obesity presented to [facility] as a transfer. Patient initially presented to [facility] ER with chest pain and shortness of [...] and they consulted cardiology for surgical clearance. Childcare Director, Dr. Beltran cleared him for the surgery. Per report, patient is moderate risk for surgical complications. However, surgeon was concerned about short runs of V. tach on telemetry. On EKG findings were consistent with NSVT. They wanted patient to be transferred to the hospital with cardiology service so surgery department at [facility] was reached out and they agreed to [...] Acute cholecystitis 03/23/2024 Atrial fibrillation with RVR ([facility]) 03/23/2024 Hypomagnesemia 03/23/2024 Assessment and Plan A-fib [...] this hospital stay by a member of [facility] Medicine. Past Medical History History reviewed. No pertinent past medical history. Past Surgical History Past Surgical History: Procedure Laterality Date HERNIA REPAIR VASECTOMY Right Social History Social History Socioeconomic History Marital status: Not on file Spouse name: Not on file Number of children: Not on file Year (more content not included)... [facility] 01-06-2021 Note HPI Staff 55 year old [...] dermatology for treatment. call with problems/questions. [place] [facility] [place] Ambulatory Referral 2. BMI 39.0-39.9,adult (Z68.39: Body mass index [BMI] 39.0-39.9, adult) recommend diet and exercise. Ordered: [facility] [place] Ambulatory Referral Follow-up No qualifying data [...] mellitus type II: Mother. Heart disease: Father. [facility] Comment on above: Result Comment: Elec tronically [...] DATE CREATED AUTHOR 01/11/2021 Rudolph Del Valle [facility] DATE CREATED AUTHOR AUTHOR'S ORGANIZ ATION 01/30/2022 Stacie Peacock [facility] DATE CREATED AUTHOR AUTHOR'S ORGANIZ ATION 09/26/2023 [facility] DATE CREATED AUTHOR AUTHOR'S ORGANIZ ATION 04/11/2024 [facility] FOR RECORDS PERTAINING TO PATIENTS WHO [...] BE BASED ON THE PRIMARY CLINICAL RECORDS. [employer] provides no warranty or guarantee of the accuracy or completeness of information in this document.
--- OUTSIDE RECORDS SUMMARY | 2024-04-25 11:04 | XMS_ITS | CCD ---
Author Organization [place] [employer] [facility] Care Team Providers Care Painter Helper Spray Name Role Phone BRADEN, DR DE LEÓN [...] Ibuprofen; Translations: [IBUPROFEN] Drug Allergy 01-08-2022 [facility] Repository (2 sources) moxifloxacin Drug Allergy 09-02-2013 [facility] Repository (2 sources) Alcohol Drug allergy (disorder) 01-08-2022 [facility] Repository Problems Problem Classification Problem Date Documented [...] 01-12-2022 Chronic Other aftercare (1 source) Other ad terminal makeup operator (current) drug therapy; Translations: [OTH ARTIST'S REPRESENTATIVE CURRENT DRUG THERAPY] Onset: 01-12-2022 Episodic Other aftercare (1 source) [facility] (current) use of aspirin; Translations: [USP CURRENT USE OF ASPIRIN] Onset: 01-12-2022 Episodic Other aftercare (1 source) [facility] (current) use of anticoagulants; Translations: [ARTIST'S REPRESENTATIVE CURRNT USE ANTICOAGULANTS] Onset: 01-12-2022 Episodic Other [...] Patient came into office for visit Normal [facility] Office Visiton 04-10-2024 Follow-up visit [id number] Dieudonne Sahu ph 1965 M Date Provider Department Center 04/10/[address] [facility] SURG Second Fl No family history on file Level of Service:57416 [place] POSTOP FOLLOW UP VISIT RELATED TO ORIGINAL PX Reason for Visit and Comments: Post-op [483] Maximo Barrios is here today for post op visit: s/p 03/25/24 subtotal cholecystectomy and drain placement Patient states he took the bulb off due to it being caught on things He has not had any drainage in over a week Normal [facility] 36on 04-04-2024 36 [employer] Press Set Up Operator called yanique hodges twice to schedule 1 week follow there was no answer Lmom [employer] Set Up Operator will give patient a call back Normal [facility] Office Visiton 04-03-2024 Follow-up visit [id number] Dieudonne Sahu ph 1965 M Date Provider Department Center 04/03/2024 76Oliverio-LUCA CHEN [facility] SURG Second Fl No family history on file Level of Service:51867 [place] POSTOP FOLLOW UP VISIT RELATED TO ORIGINAL PX Reason for Visit and Comments: Post-op [483] - Denis is her/e today for post op visit: S/p Lap Alma Delia with drain placement x2 03/25/24 Normal [facility] 30on 03-26-2024 30 The patient is Moderately Stable - Low risk of patient condition declining or worsening The patient's goals for the shift include comfort and rest The clinical goals for the shift include VSS Normal [facility] APTTon 03-26-2024 ACTIVATED PARTIAL THROMBOPLASTIN TIME IN PPP BY COAGULATION ASSAY 31.8 Seconds Normal 25.0-35.0 [facility] Comment on above: Order Comment: Basel ine aPTT before initiating heparin infusion. Result Comment: Clin ical significance of the APTT is questionable in the presence of heparin. Performed By: #### L [id number] ####[facility] ([employer])[address] [place] [address] CBCon 03-26-2024 Erythrocyte distribution width (RBC) [Ratio] 13.0 % Normal 11.5-15.0 [facility] Comment on above: Performed By: #### L [id number] #### [facility] (BEAKER) [address] [place] [address] ERYTHROCYTE MEAN CORPUSCULAR HEMOGLOBIN CONCENTRATION (G/DL) BY AUTOMATED 32.3 g/dL Normal 32.0-35.0 [facility] Comment on above: Performed By: #### L [id number] #### [facility] (BEAKER) [address] [place] [address] Hematocrit (Bld) [Volume fraction] 40.3 % Normal 39.0-55.0 [facility] Comment on above: Performed By: #### L [id number] #### [facility] (BEAKER) [address] [place] [address] Hemoglobin (Bld) [Mass/Vol] 13.0 g/dL Normal 13.0-17.0 [facility] Comment on above: Performed By: #### L [id number] #### [facility] ([facility] [address] [place] [address] MCH (RBC) [Entitic mass] 32.5 pg Normal 27.0-33.0 [facility] Comment on above: Performed By: #### L [id number] #### [facility] ([facility]) [address] [place] [address] MCV (RBC) [Entitic vol] 100.8 fL High 82.0-98.0 [facility] Comment on above: Performed By: #### L [id number] #### [facility] (BEAKER) [address] [place] [address] PLATELETS (10*3/UL) IN BLOOD AUTOMATED COUNT 266 10*3/uL Normal 150-400 [facility] Comment on above: Performed By: #### L [id number] #### [facility] (BEAKER) [address] [place] [address] RBC (Bld) [#/Vol] 4.00 10*6/uL Low 4.20-5.70 [facility] Comment on above: Performed By: #### L [id number] #### [facility] (BEAKER) [address] [place] [address] WBC (Bld) [#/Vol] 19.89 10*3/uL High 4.00-10.60 [facility] Comment on above: Performed By: #### L [id number] #### [facility] (BEAKER) [address] [place] [address] COMPREHENSIVE METABOLIC PANE Sander 03-26-2024 Albumin [Mass/Vol] 3.8 g/dL Normal 3.5-5.7 [facility] Comment on above: Performed By: #### L [id number] ####[facility] (BEAKER)[address] [place] [address] ALP [Catalytic activity/Vol] 45 U/L Normal 34-104 [facility] Comment on above: Performed By: #### L [id number] ####[facility] (BEAKER)[address] [place] [address] ALT [Catalytic activity/Vol] 10 U/L Normal 7-52 [facility] Comment on above: Performed By: #### L [id number] ####[facility] (BEAKER)[address] [place] [address] Anion gap [Moles/Vol] 10 mmol/L Normal 7-20 [facility] Comment on above: Performed By: #### L [id number] ####[facility] (BEAKER)[address] [place] [address] AST [Catalytic activity/Vol] 15 U/L Normal 13-39 [facility] Comment on above: Performed By: #### L [id number] ####[facility] (BEAKER)[address] [place] [address] Bilirubin [Mass/Vol] 0.8 mg/dL Normal 0.3-1.0 [facility] Comment on above: Performed By: #### L [id number] ####[facility] (BEAKER)[address] [place] [address] Calcium [Mass/Vol] 8.9 mg/dL Normal 8.6-10.3 [facility] Comment on above: Performed By: #### L [id number] ####[facility] (BEAKER)[address] [place] [address] Chloride [Moles/Vol] 101 mmol/L Normal 98-107 [facility] Comment on above: Performed By: #### L [id number] ####[facility] (BEAKER)[address] [place] [address] CO2 [Moles/Vol] 28 mmol/L Normal 21-31 [facility] Comment on above: Performed By: #### L [id number] ####[facility] ([facility])[address] [place] [address] Creatinine [Mass/Vol] 0.90 mg/dL Normal 0.70-1.30 [facility] Comment on above: Performed By: #### L [id number] ####[facility] ([facility])[address] [place] [address] GLOMERULAR FILTRATION RATE ML/MIN/1.73 SQ M.PREDICTED 98.4 mL/min/1.73m*2 Normal >60.0 [facility] Comment on above: Result Comment: The [facility]???s estimated glomerular filtration rate (eGFR) will no [...] of individuals. Performed By: #### L [id number] ####[facility] (BEAKER)[address] [place] [address] Glucose [Mass/Vol] 159 mg/dL High 70-100 [facility] Comment on above: Performed By: #### L [id number] ####[facility] (BEAKER)[address] [place] [address] Potassium [Moles/Vol] 4.4 mmol/L Normal 3.5-5.1 [facility] Comment on above: Performed By: #### L [id number] ####[facility] ([facility])[address] [place] [address] Protein [Mass/Vol] 6.9 g/dL Normal 6.0-8.3 [facility] Comment on above: Performed By: #### L [id number] ####[facility] ([facility])[address] [place] [address] Sodium [Moles/Vol] 135 mmol/L Low 136-145 [facility] Comment on above: Performed By: #### L [id number] ####[facility] ([facility])[address] [place] [address] Urea nitrogen [Mass/Vol] 13 mg/dL Normal 7-25 [facility] Comment on above: Performed By: #### L [id number] ####[facility] ([facility])[address] [place] [address] UREA NITROGEN/CREATININE (MASS RATIO) IN SER/PLAS 14.4 Normal [facility] Comment on above: Performed By: #### L [id number] ####[facility] ([facility])[address] [place] [address] PLATELET COUNTon 03-26-2024 PLATELETS (10*3/UL) IN BLOOD AUTOMATED COUNT 298 10*3/uL Normal 150-400 [facility] Comment on above: Performed By: #### L [id number] #### [facility] ([facility]) [address] [place] [address] PROTIME-INRon 03-26-2024 INR IN PPP BY COAGULATION ASSAY 1.34 High 0.90-1.10 [facility] Comment on above: Result Comment: ACCC P [...] CHEST 1995;108:231S-246S. Performed By: #### L [id number] ####[facility] [employer])[address] [place] [address] PROTHROMBIN TIME (PT) IN PPP BY COAGULATION ASSAY 16.5 Seconds High 12.3-14.8 [facility] Comment on above: Performed By: #### L [id number] ####[facility] [employer])[address] [place] [address] 30on 03-25-2024 30 The patient is Moderately Stable - Low risk of patient condition declining or worsening The patient's goals for the shift include comfort and rest The clinical goals for the shift include stable VS Over the shift, the patient did make progress toward his goals. Normal [facility] 30 The patient is Moderately Stable - Low risk of patient condition declining or worsening The patient's goals for the shift include comfort and rest The clinical goals for the shift include VSS Normal [facility] APTTon 03-25-2024 ACTIVATED PARTIAL THROMBOPLASTIN TIME IN PPP BY COAGULATION ASSAY 76.3 Seconds High 25.0-35.0 [facility] Comment on above: Result Comment: Clin ical significance of the APTT is questionable in the presence of heparin. Performed By: #### L [id number] #### [facility] [employer]) [address] [place] [address] CBCon 03-25-2024 Erythrocyte distribution width (RBC) [Ratio] 13.2 % Normal 11.5-15.0 [facility] Comment on above: Performed By: #### L [id number] #### [facility] ([facility]) [address] [place] [address] ERYTHROCYTE MEAN CORPUSCULAR HEMOGLOBIN CONCENTRATION (G/DL) BY AUTOMATED 32.0 g/dL Normal 32.0-35.0 [facility] Comment on above: Performed By: #### L [id number] #### [facility] ([facility]) [address] [place] [address] Hematocrit (Bld) [Volume fraction] 39.1 % Normal 39.0-55.0 [facility] Comment on above: Performed By: #### L [id number] #### [facility] ([facility]) [address] [place] [address] Hemoglobin (Bld) [Mass/Vol] 12.5 g/dL Low 13.0-17.0 [facility] Comment on above: Performed By: #### L [id number] #### [facility] ([facility]) [address] [place] [address] MCH (RBC) [Entitic mass] 32.3 pg Normal 27.0-33.0 [facility] Comment on above: Performed By: #### L [id number] #### [facility] ([facility]) [address] [place] [address] MCV (RBC) [Entitic vol] 101.0 fL High 82.0-98.0 [facility] Comment on above: Performed By: #### L [id number] #### [facility] ([facility]) [address] [place] [address] PLATELETS (10*3/UL) IN BLOOD AUTOMATED COUNT 235 10*3/uL Normal 150-400 [facility] Comment on above: Performed By: #### L [id number] #### [facility] ([facility]) [address] [place] [address] RBC (Bld) [#/Vol] 3.87 10*6/uL Low 4.20-5.70 [facility] Comment on above: Performed By: #### L [id number] #### [facility] (BEAKER) [address] [place] [address] WBC (Bld) [#/Vol] 14.90 10*3/uL High 4.00-10.60 [facility] Comment on above: Performed By: #### L [id number] #### [facility] (BEAKER) [address] [place] [address] COMPREHENSIVE METABOLIC PANE Sander 03-25-2024 Albumin [Mass/Vol] 3.6 g/dL Normal 3.5-5.7 [facility] Comment on above: Performed By: #### L [id number] ####[facility] ([facility])[address] [place] [address] ALP [Catalytic activity/Vol] 45 U/L Normal 34-104 [facility] Comment on above: Performed By: #### L [id number] ####[facility] ([facility])[address] [place] [address] ALT [Catalytic activity/Vol] 10 U/L Normal 7-52 [facility] Comment on above: Performed By: #### L [id number] ####[facility] ([facility])[address] [place] [address] Anion gap [Moles/Vol] 9 mmol/L Normal 7-20 [facility] Comment on above: Performed By: #### L [id number] ####[facility] ([facility])[address] [place] [address] AST [Catalytic activity/Vol] 15 U/L Normal 13-39 [facility] Comment on above: Performed By: #### L [id number] ####[facility] ([facility])[address] [place] [address] Bilirubin [Mass/Vol] 0.8 mg/dL Normal 0.3-1.0 [facility] Comment on above: Performed By: #### L [id number] ####[facility] (BEAKER)[address] [place] [address] Calcium [Mass/Vol] 8.5 mg/dL Low 8.6-10.3 [facility] Comment on above: Performed By: #### L [id number] ####[facility] ([facility])[address] [place] [address] Chloride [Moles/Vol] 103 mmol/L Normal 98-107 [facility] Comment on above: Performed By: #### L [id number] ####[facility] ([facility])[address] [place] [address] CO2 [Moles/Vol] 28 mmol/L Normal 21-31 [facility] Comment on above: Performed By: #### L [id number] ####[facility] ([facility])[address] [place] [address] Creatinine [Mass/Vol] 0.92 mg/dL Normal 0.70-1.30 [facility] Comment on above: Performed By: #### L [id number] ####[facility] ([facility])[address] [place] [address] GLOMERULAR FILTRATION RATE ML/MIN/1.73 SQ M.PREDICTED 95.8 mL/min/1.73m*2 Normal >60.0 [facility] Comment on above: Result Comment: The [facility]???s estimated glomerular filtration rate (eGFR) will no [...] of individuals. Performed By: #### L [id number] ####[facility] ([facility])[address] [place] [address] Glucose [Mass/Vol] 120 mg/dL High 70-100 [facility] Comment on above: Performed By: #### L [id number] ####[facility] ([facility])[address] [place] [address] Potassium [Moles/Vol] 4.1 mmol/L Normal 3.5-5.1 [facility] Comment on above: Performed By: #### L [id number] ####[facility] ([facility])[address] [place] [address] Protein [Mass/Vol] 6.6 g/dL Normal 6.0-8.3 [facility] Comment on above: Performed By: #### L [id number] ####[facility] ([facility])[address] [place] [address] Sodium [Moles/Vol] 136 mmol/L Normal 136-145 [facility] Comment on above: Performed By: #### L [id number] ####[facility] ([facility])[address] [place] [address] Urea nitrogen [Mass/Vol] 13 mg/dL Normal 7-25 [facility] Comment on above: Performed By: #### L [id number] ####[facility] ([facility])[address] [place] [address] UREA NITROGEN/CREATININE (MASS RATIO) IN SER/PLAS 14.1 Normal [facility] Comment on above: Performed By: #### L [id number] ####[facility] ([facility])[address] [place] [address] HISTOLOGY - TISSUE EXAMon LAB AP CASE REPORT Normal [facility] Comment on above: Order Comment: Pre-o p diagnosis:Acute cholecystitis [K81.0] Result Comment: Surg ical Pathology Case: [id number] Authorizing Provider: Luca Chen MD Collected: 03/25/2024 1056 Ordering Location: [facility] Main Operating Room Received: 03/28/2024 0932 Pathologist: Lurdes Harvey MD Specimen: Gallbladder, GALLBLADDER Performed By: #### L [id number] ####[facility] ([facility])[address] [place] [address] LAB AP CLINICAL INFORMATION Normal [facility] Comment on above: Order Comment: Pre-o p diagnosis:Acute cholecystitis [K81.0] Result Comment: Post -Op Diagnoses K81.0 - Acute cholecystitis [ICD-10-CM] Performed By: #### L [id number] ####[facility] ([facility])[address] [place] [address] LAB AP GROSS DESCRIPTION A. Gallbladder. [facility] Comment on above: Order Comment: Pre-o [...] cut surface of the soft tissue is purple-aptton, smooth and up to 0.4 cm in thickness. Also in the container, is a 4.5 x 3 x 2 cm aggregate of gold yellow, friable and dough-like material. Business Initiatives Manager sections of soft tissue are submitted in 2 cassettes. Zenobia Davis M.D., PGY-1 Performed By: #### L [id number] ####[facility] ([facility])[address] [place] [address] LAB AP MICROSCOPIC DESCRIPTION Microscopic examination performed. [facility] Comment on above: Order Comment: Pre-o p diagnosis:Acute cholecystitis [K81.0] Performed By: #### L [id number] ####[facility] ([facility])[address] [place] [address] LAB AP REPORT FINAL DIAGNOSIS NARRATIVE [facility] Comment on above: Order Comment: Pre-o p diagnosis:Acute cholecystitis [K81.0] Result Comment: A. G allbladder, cholecystectomy: - Acute and chronic cholecystitis with serositis and transmural inflammation. - Cholelithiasis. Performed By: #### L [id number] ####[facility] ([facility])[address] [place] [address] MAGNESIUMon 03-25-2024 Magnesium [Mass/Vol] 1.6 mg/dL Low 1.9-2.7 [facility] Comment on above: Performed By: #### L [id number] #### [facility] ([employer]) [address] [place] [address] NURSNOTEon 03-25-2024 NURSNOTE [employer] Set Up Operator contacted by [facility]. Patient had 31 runs of vtach overnight between 4-8 beats each. Patient remains asymptomatic to each episode. Roberta Alonzo notified. Order placed for magnesium to be ordered with AM labs. Normal [facility] OPNOTEon 03-25-2024 OPNOTE CHOLECYSTECTOMY, LAPAROSCOPIC Operative Note Date: 03/23/2024 - 03/25/2024 Location: [facility] OR Name: Denis Sahu : [...] MD 03/25/24 1056 No Description: GALLBLADDER Staff: Wet Inspector Optical Glass: Yuki Hobbs RN Scrub Person: Shalini Marroquin [...] and daniella (more content not included)... Normal [facility] PROTIME-INRon 03-25-2024 INR IN PPP BY COAGULATION ASSAY 1.28 High 0.90-1.10 [facility] Comment on above: Result Comment: ACCC P [...] 1995;108:231S-246S. Performed By: #### L [id number] #### [facility] [employer] ([employer]) [address] [place] [address] PROTHROMBIN TIME (PT) IN PPP BY COAGULATION ASSAY 15.9 Seconds High 12.3-14.8 [facility] Comment on above: Performed By: #### L [id number] #### [facility] ([employer]) [address] [place] [address] TROPONIN Ion 03-25-2024 Troponin I.cardiac [Mass/Vol] 0.01 ng/mL Normal 0.00-0.04 [facility] Comment on above: Performed By: #### L [id number] #### [facility] ([facility]) [address] [place] [address] Troponin I.cardiac [Mass/Vol] 0.03 ng/mL Normal 0.00-0.04 [facility] Comment on above: Performed By: #### L [id number] ####[facility] ([facility])[address] [place] [address] 30on 03-24-2024 30 The patient is Moderately Stable - Low risk of patient condition declining or worsening The patient's goals for the shift include comfort and rest The clinical goals for the shift include stable VS Over the shift, the patient did make progress toward his goals. Normal [facility] 30 Daily Case Managemen t Update Multidisciplinary [...] PT Recommendations: OT Recommendations: New Consults: Normal [facility] 30 The patient is Moderately Stable - Low risk of patient condition declining or worsening The patient's goals for the shift include comfort, rest, and find out what the plan is for him The clinical goals for the shift include VSS Normal [facility] 30 The patient is Moderately Stable - Low risk of patient condition declining or worsening The patient's goals for the shift include The clinical goals for the shift include vss Over the shift, the patient did make progress toward his goals. Normal [facility] APTTon 03-24-2024 ACTIVATED PARTIAL THROMBOPLASTIN TIME IN PPP BY COAGULATION ASSAY 82.8 Seconds High 25.0-35.0 [facility] Comment on above: Result Comment: Clin ical significance of the APTT is questionable in the presence of heparin. Performed By: #### L [id number] #### [facility] ([facility]) [address] [place] [address] ACTIVATED PARTIAL THROMBOPLASTIN TIME IN PPP BY COAGULATION ASSAY 79.2 Seconds High 25.0-35.0 [facility] Comment on above: Result Comment: Clin ical significance of the APTT is questionable in the presence of heparin. Performed By: #### L [id number] #### [facility] ([facility]) [address] [place] [address] ACTIVATED PARTIAL THROMBOPLASTIN TIME IN PPP BY COAGULATION ASSAY 28.7 Seconds Normal 25.0-35.0 [facility] Comment on above: Result Comment: Clin ical significance of the APTT is questionable in the presence of heparin. Performed By: #### L [id number] #### [facility] ([facility]) [address] [place] [address] B-TYPE NATRIURETIC PEPTIDEon 03-24-2024 Natriuretic peptide B (Bld) [Mass/Vol] 331 pg/mL High 0-100 [facility] Comment on above: Performed By: #### L [id number] #### [facility] ([facility]) [address] [place] [address] BASIC METABOLIC PANELon 02-25 Anion gap [Moles/Vol] 12 mmol/L Normal 7-20 [facility] Comment on above: Performed By: #### L [id number] #### [facility] ([facility]) [address] [place] [address] Calcium [Mass/Vol] 8.7 mg/dL Normal 8.6-10.3 [facility] Comment on above: Performed By: #### L [id number] #### [facility] ([facility]) [address] [place] [address] Chloride [Moles/Vol] 105 mmol/L Normal 98-107 [facility] Comment on above: Performed By: #### L [id number] #### [facility] ([facility]) [address] [place] [address] CO2 [Moles/Vol] 23 mmol/L Normal 21-31 [facility] Comment on above: Performed By: #### L [id number] #### [facility] ([facility]) [address] [place] [address] Creatinine [Mass/Vol] 1.02 mg/dL Normal 0.70-1.30 [facility] Comment on above: Performed By: #### L [id number] #### [facility] ([facility]) [address] [place] [address] GLOMERULAR FILTRATION RATE ML/MIN/1.73 SQ M.PREDICTED 84.7 mL/min/1.73m*2 Normal >60.0 [facility] Comment on above: Result Comment: [facility]???s estimated glomerular filtration rate (eGFR) will no [...] individuals. Performed By: #### L [id number] #### [facility] ([facility]) [address] [place] [address] Glucose [Mass/Vol] 108 mg/dL High 70-100 [facility] Comment on above: Performed By: #### L [id number] #### [facility] ([facility]) [address] [place] [address] Potassium [Moles/Vol] 4.0 mmol/L Normal 3.5-5.1 [facility] Comment on above: Performed By: #### L [id number] #### [facility] ([facility]) [address] [place] [address] Sodium [Moles/Vol] 136 mmol/L Normal 136-145 [facility] Comment on above: Performed By: #### L [id number] #### [facility] ([facility]) [address] [place] [address] Urea nitrogen [Mass/Vol] 17 mg/dL Normal 7-25 [facility] Comment on above: Performed By: #### L [id number] #### [facility] ([facility]) [address] [place] [address] UREA NITROGEN/CREATININE (MASS RATIO) IN SER/PLAS 16.7 Normal [facility] Comment on above: Performed By: #### L [id number] #### [facility] ([facility]) [address] [place] [address] CBC WITH AUTO DIFFERENTIALon 03-24-2024 Erythrocyte distribution width (RBC) [Ratio] 13.2 % Normal 11.5-15.0 [facility] Comment on above: Performed By: #### L [id number] #### [facility] ([facility]) [address] [place] [address] ERYTHROCYTE MEAN CORPUSCULAR HEMOGLOBIN CONCENTRATION (G/DL) BY AUTOMATED 32.4 g/dL Normal 32.0-35.0 [facility] Comment on above: Performed By: #### L [id number] #### [facility] ([facility]) [address] [place] [address] Hematocrit (Bld) [Volume fraction] 42.6 % Normal 39.0-55.0 [facility] Comment on above: Performed By: #### L [id number] #### [facility] ([facility]) [address] [place] [address] Hemoglobin (Bld) [Mass/Vol] 13.8 g/dL Normal 13.0-17.0 [facility] Comment on above: Performed By: #### L [id number] #### [facility] ([facility]) [address] [facility] [place] [address] MCH (RBC) [Entitic mass] 32.3 pg Normal 27.0-33.0 [facility] Comment on above: Performed By: #### L [id number] #### [facility] ([facility]) [address] [place] [address] MCV (RBC) [Entitic vol] 99.8 fL High 82.0-98.0 [facility] Comment on above: Performed By: #### L [id number] #### [facility] ([facility]) [address] [place] [address] NRBC (PER 100 WBCS) BY AUTOMATED COUNT 0.0 % Normal 0 [facility] Comment on above: Performed By: #### L [id number] #### [facility] ([facility]) [address] [place] [address] PLATELETS (10*3/UL) IN BLOOD AUTOMATED COUNT 300 10*3/uL Normal 150-400 [facility] Comment on above: Performed By: #### L [id number] #### [facility] ([facility]) [address] [place] [address] RBC (Bld) [#/Vol] 4.27 10*6/uL Normal 4.20-5.70 [facility] Comment on above: Performed By: #### L [id number] #### [facility] ([facility]) [address] [place] [address] WBC (Bld) [#/Vol] 17.06 10*3/uL High 4.00-10.60 [facility] Comment on above: Performed By: #### L [id number] #### [facility] ([facility]) [address] [place] [address] CONSULTon 03-24-2024 CONSULT --- Attestation signed by Marleny Beltran MD at 03/24/2024 1:30 PM GC: I saw this patient. I personally performed the critical/iln portions that determines the level of service. I was directly involved in the management and treatment plan of the patient. I reviewed resident Dr. Saavedra's note and agree with the documentation. Patient with history of atrial fibrillation and high [id number] score. He was transferred from [facility] for cholecystitis. He had elevated white blood [...] and Obesity, who presents as transfer from [place] where he initially presented with epigastric/abdominal pain, nausea. Workup showed Cholecystitis. Patient went into Afib with RVR. Dr Beltran stated patient was moderate nonprohibitive risk for surgery, however patient suffered few runs of VT and decision was made to transfer to [facility] for cardiology evaluation. Upon eval, [...] Neurological: Gen (more content not included)... Normal [facility] CT ABDOMEN PELVIS W IV CONTR Trina [...] outlet obstruction. Electronically signed: Laureano Rojas. Normal [facility] HEPATIC FUNCTION PANELon Albumin [Mass/Vol] 3.9 g/dL Normal 3.5-5.7 [facility] Comment on above: Performed By: #### L [id number] ####[facility] ([facility])[address] [place] [address] ALP [Catalytic activity/Vol] 54 U/L Normal 34-104 [facility] Comment on above: Performed By: #### L [id number] ####[facility] ([facility])[address] [place] [address] ALT [Catalytic activity/Vol] 12 U/L Normal 7-52 [facility] Comment on above: Performed By: #### L [id number] ####[facility] ([facility])[address] [place] [address] AST [Catalytic activity/Vol] 15 U/L Normal 13-39 [facility] Comment on above: Performed By: #### L [id number] ####[facility] ([facility])[address] [place] [address] Bilirubin [Mass/Vol] 1.0 mg/dL Normal 0.3-1.0 [facility] Comment on above: Performed By: #### L [id number] ####[facility] ([facility])[address] [place] [address] Magnesium [Mass/Vol] 0.3 mg/dL High 0-0.2 [facility] Comment on above: Performed By: #### L [id number] ####[facility] ([facility])[address] [place] [address] Protein [Mass/Vol] 6.9 g/dL Normal 6.0-8.3 [facility] Comment on above: Performed By: #### L [id number] ####[facility] ([facility])[address] [place] [address] MAGNESIUMon 03-24-2024 Magnesium [Mass/Vol] 1.7 mg/dL Low 1.9-2.7 [facility] Comment on above: Performed By: #### L [id number] #### [facility] ([facility]) [address] [place] [address] MANUAL DIFFERENTIALon 2023 BASOPHILS (10*3/UL) IN BLOOD BY CALCULATION 0.10 10*3/uL Normal 0.00-0.20 [facility] Comment on above: Performed By: #### L [id number] ####[facility] ([facility])[address] [place] [address] BASOPHILS/100 LEUKOCYTES IN BLOOD BY AUTOMATED COUNT 0.6 % Normal 0.0-1.0 [facility] Comment on above: Performed By: #### L [id number] ####[facility] ([facility])[address] [place] [address] EOSINOPHILS (10*3/UL) IN BLOOD BY CALCULATION 0.03 10*3/uL Normal 0.00-0.50 [facility] Comment on above: Performed By: #### L [id number] ####[facility] ([facility])[address] [place] [address] EOSINOPHILS/100 LEUKOCYTES IN BLOOD BY AUTOMATED COUNT 0.2 % Normal 0.0-6.0 [facility] Comment on above: Performed By: #### L [id number] ####[facility] ([facility])[address] [place] [address] IMMATURE GRANULOCYTES (10*3/UL) IN BLOOD BY CALCULATION 0.09 10*3/uL Normal 0.00-0.20 [facility] Comment on above: Performed By: #### L [id number] ####[facility] ([facility])[address] [place] [address] IMMATURE GRANULOCYTES/100 LEUKOCYTES IN BLOOD BY AUTOMATED COUNT 0.5 % Normal 0.0-1.0 [facility] Comment on above: Performed By: #### L [id number] ####[facility] ([facility])[address] [address] LYMPHOCYTES (10*3/UL) IN BLOOD BY CALCULATION 1.76 10*3/uL Normal 1.20-4.00 [facility] Comment on above: Performed By: #### L [id number] ####[facility] ([facility])[address] [address] LYMPHOCYTES/100 LEUKOCYTES IN BLOOD BY AUTOMATED COUNT 10.3 % Low 20.0-45.0 [facility] Comment on above: Performed By: #### L [id number] ####[facility] ([facility])[address] [address] MONOCYTES (10*3/UL) IN BLOOD BY CALCUATION 1.76 10*3/uL High 0.10-1.00 [facility] Comment on above: Performed By: #### L [id number] ####[facility] ([facility])[address] [address] MONOCYTES/100 LEUKOCYTES IN BLOOD BY AUTOMATED COUNT 10.3 % Normal 5.0-12.0 [facility] Comment on above: Performed By: #### L [id number] ####[facility] ([facility])[address] [address] NEUTROPHILS (10*3/UL) IN BLOOD BY CALCULATION 13.3 10*3/uL High 1.6-7.6 [facility] Comment on above: Performed By: #### L [id number] ####[facility] ([facility])[address] [address] NEUTROPHILS/100 LEUKOCYTES IN BLOOD BY AUTOMATED COUNT 78.1 % High 40.0-72.0 [facility] Comment on above: Performed By: #### L [id number] ####[facility] ([facility])[address] [address] PROTIME-INRon 03-24-2024 INR IN PPP BY COAGULATION ASSAY 1.37 High 0.90-1.10 [facility] Comment on above: Result Comment: ACCC P [...] CHEST 1995;108:231S-246S. Performed By: #### L [id number] ####[facility] ([facility])[address] [place] [address] PROTHROMBIN TIME (PT) IN PPP BY COAGULATION ASSAY 16.7 Seconds High 12.3-14.8 [facility] Comment on above: Performed By: #### L [id number] ####[facility] ([facility])[address] [place] [address] INR IN PPP BY COAGULATION ASSAY 1.28 High 0.90-1.10 [facility] Comment on above: Result Comment: [facility] P RECOMMENDED INR FOR WARFARIN THERAPY CONDITION [...] 1995;108:231S-246S. Performed By: #### L [id number] #### [facility] ([facility]) [address] [place] [address] PROTHROMBIN TIME (PT) IN PPP BY COAGULATION ASSAY 15.9 Seconds High 12.3-14.8 [facility] Comment on above: Performed By: #### L [id number] #### [facility] ([facility]) [address] [place] [address] TROPONIN Ion 03-24-2024 Troponin I.cardiac [Mass/Vol] 0.01 ng/mL Normal 0.00-0.04 [facility] Comment on above: Performed By: #### L [id number] ####[facility] ([facility])[address] [place] [address] TYPE AND SCREENon 03-24-2024 AB SCREEN Negative Normal [facility] Comment on above: Performed By: #### L [id number] ####[facility] BLOOD BANK, ABO group Nom (Bld) B Normal [facility] Comment on above: Performed By: #### L [id number] ####[facility] BLOOD BANK, RH TYPE IN BLOOD Positive Normal [facility] Comment on above: Performed By: #### L [id number] ####[facility] BLOOD BANK, CONSULTon 03-23-2024 CONSULT Reason For Consult acute cholecystitis, known pt Referring Provider: Chung Perkins MD History Of Present Illness Denis Sahu is a 58 y.o. male presenting with acute cholecystitis. Patient has past medical history of paroxysmal atrial fibrillation on Xarelto, hypertension, and morbid obesity. Patient transferred from [facility]. Patient presented to the emergency department at [facility] reporting shortness of breath and chest pain. Patient began experiencing epigastric and right upper quadrant abdominal pain accompanied by nausea. Patient reports he has not taken his carvedilol or digoxin for 3 days prior to presentation. Patient was admitted to [facility] for acute cholecystitis and was started on [...] Ref Rang (more content not included)... Normal [facility] ACUTE HEPATITIS PANELon ANTI HCV W/PCR REFLX Non-Reactive Normal [facility] Comment on above: Result Comment: If recent infection suspected, recommend repeat testing (>2 months). Kpznhe-[id number] ratio is <0.80. Performed By: #### [place], [address]-8, 97577-9 #### [facility] ([id number]) [address], [facility] [address] [place] [address] HEPATITIS A IGM Non-Reactive Normal [facility] Comment on above: Performed By: #### [place], [address]-1, 63717-6 #### [facility] ([id number]) [address], [address] [address] HEPATITIS B CORE IGM Negative Normal [facility] Comment on above: Performed By: #### [place], 66832-1, 66620-7 #### [facility] ([id number]) [address], [address] [place] [address] HEPATITIS B SURF AG Negative Normal [facility]G [facility] Comment on above: Performed By: #### A HP, 78940-9, 49547-3 #### [facility] ([id number]) [address], [address] [address] HIV 1+2 Ab+HIV1 p24 Ag IA Ql on 09-25-2023 HIV 1 and 2 Ab/Ag Screen Non-Reactive Normal [facility] Comment on above: Result Comment: This [...] or diagnoses. Performed By: #### A , 73150-5, 76282-2 #### [facility] ([id number]) [address], [address] [place] [address] T. pallidum IgG+IgM IA Ql (S )on 09-25-2023 Syphilis Total <0.2 Normal 0.0-0.8 [facility] Comment on above: Result Comment: NON REACTIVE No serologic evidence of infection to Treponema pallidum (syphilis). Repeat testing may be considered in patients with suspected acute or primary syphilis in 2 to 4 weeks. Performed By: #### A , 91640-8, 54213-5 #### [facility] ([id number]) [address], [address] [place] [address] CT ABD/PELV W CONon 01-10-20 CT ABD/PELV [...] by: ELBERT ROSALES Date: 2022-01-09 00:26 Normal [facility] XR CHEST 1 Von 01-09-2022 XR CHEST [...] SHONDA RAY Date: 2022-01-08 22:09 Normal [facility] BNPon 01-08-2022 Natriuretic peptide B (Bld) [Mass/Vol] 895.0 pg/mL Normal <=900.0 [facility] Comment on above: Performed By: #### H STROPN, LIPA, BNP, CMP #### [facility] [address] [address] [address] Teresa England CBC AUTO DIFFon 01-08-2022 BASO # 0.0 103/ul Normal 0.0-0.1 [facility] Comment on above: Performed By: #### C BC #### [facility] [address] [address] [address] Teresa England Basophils/100 WBC (Bld) 0.6 % Normal 0.2-2.0 [facility] Comment on above: Performed By: #### C BC #### [facility] [address] [place] [address] Dr. Teresa England EO # 0.0 103/ul Normal 0.0-0.7 [facility] Comment on above: Performed By: #### C BC #### [facility] [address] [place] [address] Dr. Teresa England Eosinophils/100 WBC (Bld) 0.6 % Critically low 0.9-7.0 [facility] Comment on above: Performed By: #### C BC #### [facility] [address] [place] [address] Dr. Teresa England Erythrocyte distribution width (RBC) [Ratio] 12.7 % Normal 11.0-15.0 [facility] Comment on above: Performed By: #### C BC #### [facility] [address] [place] [address] Dr. Teresa England Hematocrit (Bld) [Volume fraction] 51.0 % Normal 42.0-54.0 [facility] Comment on above: Performed By: #### C BC #### [facility] [address] [place] [address] Dr. Teresa England Hemoglobin (Bld) [Mass/Vol] 16.9 g/dL Normal 14.0-18.0 [facility] Comment on above: Performed By: #### C BC #### [facility] [address] [place] [address] Dr. Teresa England IG # 0.02 10e3/ul Normal 0.00-0.03 [facility] Comment on above: Performed By: #### C BC #### [facility] [address] [place] [address] Dr. Teresa England IG % 0.4 % Normal 0.0-0.5 [facility] Comment on above: Performed By: #### C BC #### [facility] [address] [place] [address] Dr. Teresa England LYMPH # 1.3 103/ul Normal 1.2-3.8 [facility] Comment on above: Performed By: #### C BC #### [facility] [address] [place] [address] Dr. Teresa England Lymphocytes/100 WBC (Bld) 24.5 % Normal 20.5-60.0 [facility] Comment on above: Performed By: #### C BC #### [facility] [address] [place] [address] Dr. Teresa England MANUAL DIFF REQ NO Normal [facility] Comment on above: Performed By: #### C BC #### [facility] [address] [place] [address] Dr. Teresa England MCH (RBC) [Entitic mass] 32.3 pg Normal 25.9-34.0 [facility] Comment on above: Performed By: #### C BC #### [facility] [address] [place] [address] Dr. Teresa England MCHC (RBC) [Mass/Vol] 33.1 g/dL Normal 29.9-35.2 [facility] Comment on above: Performed By: #### C BC #### [facility] [address] [place] [address] Dr. Teresa England MCV (RBC) [Entitic vol] 97.3 fL Critically high 80.0-94.0 [facility] Comment on above: Performed By: #### C BC #### [facility] [address] [place] [address] Dr. Teresa England MONO # 1.0 103/ul Critically high 0.3-0.8 [facility] Comment on above: Performed By: #### C BC #### [facility] [address] [place] [address] Dr. Teresa England Monocytes/100 WBC (Bld) 18.2 % Critically high 1.7-12.0 [facility] Comment on above: Performed By: #### C BC #### [facility] [address] [place] [address] Dr. Teresa England NEUT # 3.0 103/ul Normal 1.4-6.5 [facility] Comment on above: Performed By: #### C BC #### [facility] [address] [address] [address] Teresa England Neutrophils/100 WBC (Bld) 55.7 % Normal 43.0-75.0 [facility] Comment on above: Performed By: #### C BC #### [facility] [address] [address] [address] Teresa England Platelet mean volume (Bld) [Entitic vol] 10.3 fL Normal 9.5-13.5 [facility] Comment on above: Performed By: #### C BC #### [facility] [address] [place] [address] Dr. Teresa England PLT 217 103/ul Normal 150-450 [facility] Comment on above: Performed By: #### C BC #### [facility] [address] [address] [address] Teresa England RBC 5.24 106/ul Normal 4.70-6.10 [facility] Comment on above: Performed By: #### C BC #### [facility] [address] [address] [address] Teresa England WBC 5.4 103/ul Normal 4.0-11.0 [facility] Comment on above: Performed By: #### C BC #### [facility] [address] [place] [address] Dr. Teresa England DIGOXINon 01-08-2022 DIG 0.3 ng/mL Critically low 0.9-2.0 [facility] Comment on above: Performed By: #### D IG ####[facility] [id number] [address] Teresa England LACTATE/LACTIC ACIDon 2021 Lactate [Moles/Vol] 1.6 mmol/L Normal 0.4-1.9 [facility] Comment on above: Performed By: #### L ACT #### [facility] [address] [address] [address] Teresa England LIPASEon 01-08-2022 Lipase [Catalytic activity/Vol] 149.0 U/L Normal 73.0-393.0 [facility] Comment on above: Performed By: #### H STROPN, LIPA, BNP, CMP #### [facility] [address] [address] [address] Teresa England PROF 14(COMP METB)on 022 Albumin [Mass/Vol] 4.0 g/dL Normal 3.4-5.0 [facility] Comment on above: Performed By: #### H STROPN, LIPA, BNP, CMP #### [facility] [address] [address] [address] Teresa England Albumin/Globulin [Mass ratio] 1.0 {ratio} Normal [facility] Comment on above: Performed By: #### H STROPN, LIPA, BNP, CMP #### [facility] [address] [address] [address] Teresa England ALP [Catalytic activity/Vol] 46 U/L Normal 46-116 [facility] Comment on above: Performed By: #### H STROPN, LIPA, BNP, CMP #### [facility] [address] [address] [address] Teresa England ALT [Catalytic activity/Vol] 67 U/L Critically high 16-63 [facility] Comment on above: Performed By: #### H STROPN, LIPA, BNP, CMP #### [facility] [address] [address] [address] Teresa England Anion gap [Moles/Vol] 10.9 mmol/L Normal [facility] Comment on above: Performed By: #### H STROPN, LIPA, BNP, CMP #### [facility] [address] [address] [address] Teresa England AST [Catalytic activity/Vol] 58 U/L Critically high 15-37 [facility] Comment on above: Performed By: #### H STROPN, LIPA, BNP, CMP #### [facility] [address] [address] [address] Teresa England Bilirubin [Mass/Vol] 0.9 mg/dL Normal 0.2-1.0 [facility] Comment on above: Performed By: #### H STROPN, LIPA, BNP, CMP #### [facility] [address] [place] [address] Dr. Teresa England Calcium [Mass/Vol] 9.1 mg/dL Normal 8.5-10.1 [facility] Comment on above: Performed By: #### H STROPN, LIPA, BNP, CMP #### [facility] [address] [place] [address] Dr. Teresa England Chloride [Moles/Vol] 103 mmol/L Normal 98-107 [facility] Comment on above: Performed By: #### H STROPN, LIPA, BNP, CMP #### [facility] [address] [place] [address] Dr. Teresa England CO2 [Moles/Vol] 26.3 mmol/L Normal 21.0-32.0 [facility] Comment on above: Performed By: #### H STROPN, LIPA, BNP, CMP #### [facility] [address] [place] [address] Dr. Teresa England Creatinine [Mass/Vol] 1.21 mg/dL Normal 0.70-1.30 [facility] Comment on above: Performed By: #### H STROPN, LIPA, BNP, CMP #### [facility] [address] [place] [address] Dr. Teresa England EGFR-AF EGYPTIAN >60 Normal >=60 [facility] Comment on above: Performed By: #### H STROPN, LIPA, BNP, CMP #### [facility] [address] [place] [address] Dr. Teresa England EGFR-NON AF EGYPTIAN >60 Normal >=60 [facility] Comment on above: Performed By: #### H STROPN, LIPA, BNP, CMP #### [facility] [address] [place] [address] Dr. Teresa England Globulin (S) [Mass/Vol] 4.1 g/dL Normal [facility] Comment on above: Performed By: #### H STROPN, LIPA, BNP, CMP #### [facility] [address] [address] [address] Teresa England Glucose [Mass/Vol] 122 mg/dL Critically high 74-106 [facility] Comment on above: Performed By: #### H STROPN, LIPA, BNP, CMP #### [facility] [address] [place] [address] Dr. Teresa England Potassium [Moles/Vol] 4.2 mmol/L Normal 3.5-5.1 [facility] Comment on above: Performed By: #### H STROPN, LIPA, BNP, CMP #### [facility] [address] [address] [address] Teresa England Protein [Mass/Vol] 8.1 g/dL Normal 6.4-8.2 [facility] Comment on above: Performed By: #### H STROPN, LIPA, BNP, CMP #### [facility] [address] [place] [address] Dr. Teresa England Sodium [Moles/Vol] 136 mmol/L Normal 136-145 [facility] Comment on above: Performed By: #### H STROPN, LIPA, BNP, CMP #### [facility] [address] [place] [address] Dr. Teresa England Urea nitrogen [Mass/Vol] 12.0 mg/dL Normal 7.0-18.0 [facility] Comment on above: Performed By: #### H STROPN, LIPA, BNP, CMP #### [facility] [address] [place] [address] Dr. Teresa England Urea nitrogen/Creatinine [Mass ratio] 9.9 mg/mg Normal [facility] Comment on above: Performed By: #### H STROPN, LIPA, BNP, CMP #### [facility] [address] [place] [address] Dr. Teresa England PROTIMEon 01-08-2022 INR Coag (PPP) [Relative time] 1.22 {INR} Normal [facility] Comment on above: Performed By: #### P T, PTT #### [facility] [address] [address] [address] Teresa England INR GUIDELINES SEE BELOW Normal [facility] Comment on above: Result Comment: COURTNEY RED INR: 2.0 - 3.0 CONDITIONS NOT LISTED BELOW 2.5 - 3.5 FOR PROSTHETIC HEART VALVE REPLACEMENT 2.5 - 3.5 RECURRENT THROMBOSIS Performed By: #### P T, PTT #### [facility] [address] [address] [address] Teresa England PT Coag (PPP) [Time] 13.0 s Critically high 9.0-11.6 [facility] Comment on above: Performed By: #### P T, PTT #### [facility] [address] [address] [address] Teresa England PTTon 01-08-2022 aPTT Coag (Bld) [Time] 30.1 s Normal 22.3-36.2 [facility] Comment on above: Performed By: #### P T, PTT #### [facility] [address] [address] [address] Teresa England TROPONIN, HIGH SENSITIVITYon 01-08-2022 HSTROP 17.3 pg/mL Normal 4.0-76.1 [facility] Comment on above: Result Comment: CUT- OFF POINTS HAVE BEEN ESTABLISHED BASED ON THE FOURTH UNIVERSAL DEFINITIONS OF MYOCARDIAL INFARCTION. THE UPPER REFERENCE LIMIT (URL) OF TROPONIN, DEFINED THE 99TH PERCENTILE OF cTnI DISTRIBUTION IN A REFERENCE POPULATION, HAS BEEN CONFIRMED THE DECISION THRESHOLD FOR MD DIAGNOSIS. Performed By: #### H STROPN, LIPA, BNP, CMP ####[facility] [address] [place], [place] [address]UaDr. Teresa England [facility] January 10, 2021 Genet Feliciano, [address] [facility] [place] [address] [place] [address] Re: DENIS SAHU Date of : 1965 Thank you for your referral of Denis Sahu who was seen on consultation on January 01, 2021, for multiple recurrent skin cysts on face and neck. I have enclosed my consultation notes for your review. Sincerely, James Esparza MD General Surgery Normal [facility] Facesheeton 01-02-2021 Facesheet [id number] D:127 Normal [facility] Ambulatory Clinical Summaryo n 01-01-2021 Ambulatory Clinical Summary {[id number] Normal [facility] Patient Educationon 01-02-20 Patient Education [...] your health care provider or diet and global mobility specialist (dietitian). This may include: ? Eating [...] weight villalobos (more content not included)... Normal [facility] Physician Referralon 021 Physician Referral [phone] [id number] D:127 [facility] Encounters Encounter Date Encounter Type Care Provider Facility Start: 04-10-2024 End: 04-10-2024 ambulatory ABA MCCURDY [facility] Start: 04-03-2024 End: 04-03-2024 ambulatory LUCA CHEN [facility] Start: 03-24-2024 Evaluation and management of inpatient TONY ARTEAGA ENGLAND [facility] Start: 03-24-2024 Evaluation and management of inpatient CHUNG M [facility] Start: 03-23-2024 Evaluation and management of inpatient CHUNG Ricardo [facility] Start: 03-23-2024 End: 03-26-2024 Evaluation and management of inpatient ALEXANDRE JEFFERSON [facility] Start: 09-25-2023 End: 09-26-2023 ambulatory GENET FELICIANO [facility] Start: 01-29-[address] GENET FELICIANO Facility :[facility] Start: 01-08-2022 End: 01-09-[address] GENET FELICIANO Facility:[facility] Payers Date Payer Category Payer Medicaid [id number] 1965 Unknown [id number] 1965 Unknown [id number] 1965 Unknown [id number] 1960 Self-pay [id number] 1960 Unknown [id number] Clinical Notes 01-06-2021 to 04-10-2024 Note Date [...] past 36 hour(s)). No follow-ups on file. [facility] 04-03-2024 Note CLINICAL HISTORY: Ch olecystitis, abdominal [...] Electronically signed: Pedro Sanders MD. Not Vldtd [facility] 04-03-2024 Note Subjective Patient ID: Denis Sahu [...] past 36 hour(s)). No follow-ups on file. [facility] 03-26-2024 Note Hospital Medicine Discharge Summary Final Discharge Diagnosis: Acute cholecystis Afib with RVR Hypomagnesemia Obesity class II Essential hypertension Coagulopathy Admission Diagnosis: Acute cholecystitis [K81.0] Hospital course: Mr. Denis Sahu is an 58 y.o. male with past medical history of paroxysmal A-fib, on Xarelto, hypertension and obesity. He presented to [facility] as a transfer from [facility] on 03/23/2024. Patient initially presented to [facility] ER with chest pain and shortness of [...] and they consulted cardiology for surgical clearance. J2Ee Software Engineer, Dr. Beltran cleared him for the surgery. Per report, patient is moderate risk for surgical complications. However, surgeon was concerned about short runs of V. tach on telemetry. On EKG findings were consistent with NSVT. They wanted patient to be transferred to the hospital with cardiology service so surgery department at [facility] was reached out and they [...] Your Medications These medications were sent to [facility] [id number] [id number] [facility] [address] [facility] [address] acetaminophen 500 mg tablet amoxicillin-pot clavulanate 875-125 [...] 10*3/uL 298 266 (more content not included)... [facility] 03-26-2024 Note Discussed with doug freitas RN and pt at bedside on whether he would like [facility] for his drains. Pt declined needing it citing that he feels comfortable taking care of it himself and also cited that he has support from his son whom he lives w/ and his girlfriend who has worked in nursing homes before. Pt will discharge home today with no further needs. [facility] 03-26-2024 Note ------ Attestation signed by Fer [...] 20 mg, oral, Daily with evening meal, Toyn England MD Objective: Patient Vitals for the [...] 84 QT Interval 362 QTC CALCULATION(BAZETT) 447 R-Eyota 65 T Wave Eyota 65 Impression Atrial fibrillation Nonspecific T wave abnormality Abnormal ECG No previous ECGs available Confirmed by Fer Campos ([id number]) on 03/24/2024 12:30:27 PM Lab Results Component Value Date TROPONINI 0.01 03/25/2024 Complete Echo (TTE) w/wo Imaging Agent, Strain, 3D, Bubble Study Result Date: 03/24/2024 1 [facility] Heart Station [address] [place] [address] [phone] (fax) Echocardiogram-[facility] Name: DENIS SAHU Study Date: 03/24/2024 02:38 PM B/P: 118 mmHg/80 mmHg HR: Date of : 1965 Location: [facility] Height: 70 in. Age: 58 year(s) Patient Room: 3140 Weight: 255 lb. Gender: Male Patient Status: InPt BSA: 2.31 m2 Indication: Atrial Fibrillation Examination: Echocardiogra (more content not included)... [facility] 03-26-2024 Note ------ Attestation signed by Luca Chen MD at 03/26/2024 7:28 PM GC: I saw this patient. I personally performed the critical/lin portions that determines the level of service. I was directly involved in the management and treatment plan of the patient. I reviewed resident Oswald Ni MD 's note and agree with the documentation ------ [facility] General Surgery DAILY PROGRESS NOTE Subjective Underwent [...] oral, q8h metroNIDAZOLE, 500 mg, intravenous, q12h EMLISSA phytonadione, 0.5 mg, intravenous, Once rivaroxaban, 20 mg, oral, Daily with evening meal Imaging: Complete Echo (TTE) w/wo Imaging Agent, Strain, 3D, Bubble Study 1 1 [facility] Heart Station [address] [place] [address] [phone] (fax) Echocardiogram-[facility] Name: DENIS SAHU Study Date: 03/24/2024 02:38 PM B/P: 118 mmHg/80 mmHg HR: Date of : 1965 Location: [facility] Height: 70 in. Age: 58 [...] - 1.7 m/sec (more content not included)... [facility] 03-25-2024 Note Hospital Medicine Daily Progress Note - 03/25/2024 12:04 PM; Room: OR/- Admission: 03/23/2024 7:37 PM; Length of stay: 2 days THE HOSPITALIST TEAM PREFERS TO USE [employer] CHAT FOR COMMUNICATION 7AM-7PM. IF I DO NOT RESPOND WITHIN 15 MINUTES, PLEASE PAGE ME/CALL THROUGH THE USABILITY STRATEGIST. FROM 7PM-7AM, PLEASE PAGE [phone](COVR) Code Status: Full Code Barriers to Discharge: [...] cholecystitis Active Problems: Atrial fibrillation with RVR ([facility]) Hypomagnesemia Assessment and Plan Afib with RVR [...] ALT U/L 10 (more content not included)... [facility] 03-25-2024 Note Patient: Denis esteban Procedure Summary Date: 03/25/24 Room / Location: [facility] OPERATING ROOM 13 / [facility] Operating Room Anesthesia Start: 912 Anesthesia Stop: [...] per anesthesia protocol. No notable events documented. [facility] 03-25-2024 Note Airway Date/Time: 03/25/2024 9:23 AM Urgency: elective General Information and Staff Patient location during procedure: OR Anesthesiologist: Daren Prado MD Performed: resident/DIRECTOR FOOD AND BEVERAGE/CAA Indications and Patient Condition Indications for airway [...] 1 Number of other approaches attempted: 0 [facility] 03-25-2024 Note Visit Vitals BP (!) 122/98 Pulse (!) 118 Temp 36.8 ???C (98.3 ???F) (Temporal) Resp 22 Irregularly rate Non labored breathing Soft, mild tenderness to palpation in the right upper quadrant 58 year old man with multiple comorbidities with acute cholecystitis Plan for OR today Risks and benefits discussed with the patient [facility] 03-25-2024 Note Patient: Denis esteban Procedure Information Date/Time: 03/25/24 1030 Procedure: CHOLECYSTECTOMY, LAPAROSCOPIC (Abdomen) Location: [facility] OPERATING ROOM 13 / [facility] Operating Room Surgeons: Luca Chen MD Relevant [...] with CAA and resident. Additional Equipment Requests [facility] 03-24-2024 Note Hospital Medicine Daily Progress Note - 03/24/2024 6:01 PM; Room: [facility] Admission: 03/23/2024 7:37 PM; Length of stay: 1 days THE HOSPITALIST TEAM PREFERS TO USE [employer] CHAT FOR COMMUNICATION 7AM-7PM. IF I DO NOT RESPOND WITHIN 15 MINUTES, PLEASE PAGE ME/CALL THROUGH THE USABILITY STRATEGIST. FROM 7PM-7AM, PLEASE PAGE [phone](COVR) Code Status: Full Code Barriers to Discharge: [...] , FREET4 , CORTISOL , FEV1 , LXN3KTB , DLCO , RVSP , HDL , LDL No results found for: [id number] , IRON , TIBC , C3 , C4 , ADRY , CANCA , ASO , PSA , CEA , CA125 , CA199 , AFP , CA153 Imaging Complete Echo (TTE) w/wo Imaging Agent, Strain, 3D, Bubble Study 1 1 [facility] Heart Station [address] [place] [address] (fax) Echocardiogram-[facility] Name: DENIS SAHU Study Date: 03/24/2024 02:38 PM B/P: 118 mmHg/80 mmHg HR: Date of : 1965 Location: [facility] Height: 70 i (more content not included)... [facility] 03-24-2024 Note ------ Attestation signed by Luca Chen MD at 03/25/2024 9:16 AM GC: I saw this patient. I personally performed the critical/lin portions that determines the level of service. I was directly involved in the management and treatment plan of the patient. I reviewed resident Rigoberto Rodrigez MD 's note and agree with the documentation ------ [facility] General Surgery DAILY PROGRESS NOTE Subjective Patient [...] to difficulty a (more content not included)... [facility] 03-24-2024 Note Hospital Medicine Daily Progress Note - 03/24/2024 11:14 AM; Room: [address] [place] [address] Admission: 03/23/2024 7:37 PM; Length of stay: 1 days THE HOSPITALIST TEAM PREFERS TO USE [employer] CHAT FOR COMMUNICATION 7AM-7PM. IF I DO NOT RESPOND WITHIN 15 MINUTES, PLEASE PAGE ME/CALL THROUGH THE USABILITY STRATEGIST. FROM 7PM-7AM, PLEASE PAGE [phone](COVR) Code Status: Full Code Barriers to Discharge: [...] TOTAL mg/dL 1.0 (more content not included)... [facility] 03-24-2024 Note HR jumped up to 170 and was consistently 135. Unable to perform echocardiogram at this time. Will attempt when heart rate is under 120 bpm. [facility] 03-24-2024 Note 03/24/24 0901 Admission Assessment Questions [...] Status Interested Does the patient have a public information relations manager assigned to them through their insurance? [...] to send link and activate MyChart? Yes [facility] 03-23-2024 Note Hospital Medicine History and Physical 03/23/2024 11:40 PM THE HOSPITALIST TEAM PREFERS TO USE [employer] FOR COMMUNICATION 7AM-7PM. IF I DO NOT RESPOND WITHIN 15 MINUTES, PLEASE PAGE ME/CALL THROUGH THE USABILITY STRATEGIST. FROM 7PM-7AM, PLEASE PAGE [phone](COVR) Chief Complaint No chief complaint on file. History of Present Illness Denis Sahu is an 58 y.o. male who came from [facility] with past medical history of paroxysmal A-fib, on Xarelto, hypertension and morbid obesity presented to [facility] as a transfer. Patient initially presented to [facility] ER with chest pain and shortness of [...] and they consulted cardiology for surgical clearance. J2Ee Software Engineer, Dr. Beltran cleared him for the surgery. Per report, patient is moderate risk for surgical complications. However, surgeon was concerned about short runs of V. tach on telemetry. On EKG findings were consistent with NSVT. They wanted patient to be transferred to the hospital with cardiology service so surgery department at [facility] was reached out and they [...] Acute cholecystitis 03/23/2024 Atrial fibrillation with RVR ([facility]) 03/23/2024 Hypomagnesemia 03/23/2024 Assessment and Plan A-fib [...] this hospital stay by a member of [facility] Medicine. Past Medical History History reviewed. No pertinent past medical history. Past Surgical History Past Surgical History: Procedure Laterality Date HERNIA REPAIR VASECTOMY Right Social History Social History Socioeconomic History Marital status: Not on file Spouse name: Not on file Number of children: Not on file Year (more content not included)... [facility] 01-06-2021 Note HPI Staff 55 year old [...] dermatology for treatment. call with problems/questions. Ordered: [facility] External Ambulatory Referral 2. BMI 39.0-39.9,adult (Z68.39: Body mass index [BMI] 39.0-39.9, adult) recommend diet and exercise. Ordered: [facility] External Ambulatory Referral Follow-up No qualifying data [...] mellitus type II: Mother. Heart disease: Father. [facility] Comment on above: Result Comment: [...] DATE CREATED AUTHOR 01/11/2021 [facility] DATE CREATED AUTHOR AUTHOR'S ORGANIZ ATION 01/30/2022 Stacie Peacock [facility] DATE CREATED AUTHOR AUTHOR'S ORGANIZ ATION 09/26/2023 [facility] DATE CREATED AUTHOR AUTHOR'S ORGANIZ ATION 04/11/2024 [facility] FOR RECORDS PERTAINING TO PATIENTS WHO [...] BE BASED ON THE PRIMARY CLINICAL RECORDS. [employer] provides no warranty or guarantee of the accuracy or completeness of information in this document.
== END 2024-04-17 23:59 | disposition home or self-care (01) ==
LOC: RAD 04-25 10:46
PROVIDERS: PCP Family Medicine; Visit Provider Family Medicine
DX: I48.0 Paroxysmal atrial fibrillation (principal); M54.12 Radiculopathy, cervical region; M50.30 Other cervical disc degeneration, unspecified cervical region
CPT/HCPCS: 72040